=== PATIENT | female | born 1935 | race Caucasian/White ===

== ENCOUNTER 2016-10-05 11:57 | Outpatient (CLI) | payer MEDICARE, BC | END 2016-10-05 11:58 | disposition home or self-care (01) | DX: E11.40 Type 2 diabetes mellitus with diabetic neuropathy, unspecified (principal) ==

== ENCOUNTER 2016-11-26 09:50 | Outpatient (CLI) | payer MEDICARE, BC | END 2016-11-26 09:51 | disposition home or self-care (01) | DX: I48.91 Unspecified atrial fibrillation (principal); I51.9 Heart disease, unspecified; Z79.899 Other long term (current) drug therapy; I25.119 Atherosclerotic heart disease of native coronary artery with unspecified angina pectoris; Z79.01 Long term (current) use of anticoagulants ==

== ENCOUNTER 2016-11-26 09:50 | Outpatient (CLI) | payer MEDICARE, BC | END 2016-11-26 09:51 | disposition home or self-care (01) | DX: E03.9 Hypothyroidism, unspecified (principal); I48.91 Unspecified atrial fibrillation; I51.9 Heart disease, unspecified; Z79.899 Other long term (current) drug therapy; I25.119 Atherosclerotic heart disease of native coronary artery with unspecified angina pectoris; Z79.01 Long term (current) use of anticoagulants ==

== ENCOUNTER 2016-12-06 10:10 | Outpatient (CLI) | payer MEDICARE, BC | END 2016-12-06 10:11 | disposition home or self-care (01) | DX: I10 Essential (primary) hypertension (principal) ==

== ENCOUNTER 2017-02-13 12:42 | Outpatient (CLI) | payer MEDICARE, BC ==
--- NOTE | 2017-02-14 14:59 | Ultrasound Report ---
BILATERAL LOWER EXTREMITY ARTERIAL DUPLEX: 02/13/2017 CLINICAL HISTORY: Bilateral lower extremity claudication and atrial fibrillation. TECHNIQUE: Real-time sonographic vascular imaging was performed by the electrophysiology tech through the lower extremities utilizing both color-flow and Doppler spectral analysis. Multiple automotive sales representative static images were saved for review. RIGHT SIDE SITE PSV WAVEFORM STEN FRANK -- -- -- MAO -- -- -- ERNESTO -- -- -- ANGUS -- -- -- EIA -- -- -- MAMMOGRAPHY TECH 134 Tri -- PSFA 135 Tri -- MSFA 96 Tri -- DSFA 85 Bi -- PFA 91 Bi -- POP 55 Bi -- PAUL 36 Bi -- COMPUGRAPH OPERATOR 140 Tri -- PER 55 Bi -- DPA 68 Bi -- LEFT SIDE SITE PSV WAVEFORM STEN ANGUS -- -- -- EIA -- -- -- MAMMOGRAPHY TECH 134 Bi -- PSFA 77 Bi -- MSFA 120 Bi -- DSFA 103 Bi -- PFA 81 Bi -- POP 63 Bi -- PAUL 49 Bi -- COMPUGRAPH OPERATOR 63 Bi -- PER 94 Bi -- DPA 76 Bi -- FINDINGS: Doppler of the lower extremity arteries shows triphasic flow in all of the vessels bilaterally extending from the common femoral down into the arteries in the legs. This indicates no hemodynamically significant stenosis present in any of the lower extremity arteries. Visually, only minimal plaque is noted in the lower extremity arteries. IMPRESSION: NO SIGNIFICANT ABNORMALITY. MTDD
== END 2017-02-13 12:43 | disposition home or self-care (01) ==
LOC: DI 12:42
PROVIDERS: ATTEND Family Medicine
DX: I73.9 Peripheral vascular disease, unspecified (principal)
CPT/HCPCS: 93925

== ENCOUNTER 2017-02-19 16:47 | Outpatient (CLI) | payer MEDICARE, BC ==
[2017-02-19 13:31] LABS: BILIRUBIN,TOTAL 0.5 mg/dL (0.2-1.0); CALCIUM 9.2 mg/dL (8.5-10.3); CREATININE 1.3 mg/dL (0.4-1.0); POTASSIUM 4.3 mmol/L (3.5-5.0); TOTAL PROTEIN 7.3 g/dL (6.7-8.2)
== END 2017-02-19 16:48 | disposition home or self-care (01) ==
LOC: LAB.WCP 16:47
PROVIDERS: ATTEND Internal Medicine Cardiovascular Disease
DX: I48.0 Paroxysmal atrial fibrillation (principal); Z95.1 Presence of aortocoronary bypass graft; I10 Essential (primary) hypertension; I51.9 Heart disease, unspecified; E78.00 Pure hypercholesterolemia, unspecified; Z79.01 Long term (current) use of anticoagulants; Z79.899 Other long term (current) drug therapy
CPT/HCPCS: 36415; 80053; 84443

== ENCOUNTER 2017-03-07 08:10 | Outpatient (CLI) | payer MEDICARE, BC ==
--- NOTE | 2017-03-07 09:22 | Ultrasound Report ---
ULTRASOUND LEFT BREAST: 03/07/2017 CLINICAL INDICATION: History of mastectomy, palpable abnormality just below mastectomy scar. TECHNIQUE: Real-time scanning was performed with pharmaceutical sales representative static images obtained. FINDINGS: Ultrasound of the palpable abnormality identified by the patient was performed. Unremarka ble subcutaneous fat is seen. No discrete solid or cystic mass is identified. No sonographically muro spicious findings are present. IMPRESSION: NEGATIVE EXAMINATION. RECOMMENDATION: Continued clinical surveillance. BI-RADS category 1, negative. JOB #: [id number] EXT JOB #:[id number]
== END 2017-03-07 08:11 | disposition home or self-care (01) ==
LOC: DI 08:10
PROVIDERS: ATTEND Family Medicine
DX: N63 Unspecified lump in breast (principal)
CPT/HCPCS: 76642

== ENCOUNTER 2017-04-20 22:04 | Emergency (ER) | payer MEDICARE, BC ==
[2017-04-20 22:29] LABS: BASOPHILS % (AUTO) 0.5 %; EOSINOPHILS # (AUTO) 0.2 10^3/uL (0.0-0.7); EOSINOPHILS % (AUTO) 2.7 %; HCT - HEMATOCRIT 29.7 % (37.0-47.0); HGB - HEMOGLOBIN 10.2 g/dL (12.0-16.0); LYMPHOCYTES # (AUTO) 2.1 10^3/uL (1.5-3.5); LYMPHOCYTES % (AUTO) 24.5 %; MEAN CORPUSCULAR HEMOGLOBIN 32.8 pg (27.0-31.0); MEAN CORPUSCULAR HGB CONC 34.3 g/dL (32.0-36.0); MEAN CORPUSCULAR VOLUME 95.6 fL (81.0-99.0); MEAN PLATELET VOLUME 7.9 fL (7.9-10.8); MONOCYTES # (AUTO) 0.7 10^3/uL (0.0-1.0); NEUTROPHILS # (AUTO) 5.5 10^3/uL (1.5-6.6); NEUTROPHILS % (AUTO) 64.3 %; RED BLOOD COUNT 3.11 10^6/uL (4.20-5.40); RED CELL DISTRIBUTION WIDTH 14.8 % (12.0-15.0); UNCORRECTED WHITE BLOOD COUNT 8.5 x10^3/uL; WHITE BLOOD COUNT 8.5 x10^3/uL (4.8-10.8)
[2017-04-20 22:38] LABS: BILIRUBIN,TOTAL 0.3 mg/dL (0.2-1.0); CALCIUM 8.6 mg/dL (8.5-10.3); CREATININE 1.1 mg/dL (0.4-1.0); POTASSIUM 3.8 mmol/L (3.5-5.0); TOTAL PROTEIN 7.4 g/dL (6.7-8.2)
--- NOTE | 2017-04-20 23:01 | ED Physician Documentation ---
History of Present Illness - Stated complaint Stated Complaint: HBP - Chief complaint Chief Complaint: Cardiac - History obtained from History obtained from: Patient, Friend - History of Present Illness Timing: Today - Additonal information Additional information: Patient is an 82 year old female with a history of htn who is presenting to the emergency department for high blood pressure. patient states that she decided to check it on a whim and it was elevated to 190s systolic. Patient denied any physical complaints but thought she should get checked out. Review of Systems Constitutional: denies: Fever, Chills Eyes: denies: Photophobia, Irritation Ears: denies: Loss of hearing, Ear pain Nose: denies: Rhinorrhea / runny nose, Epistaxis Throat: denies: Dental pain / toothache, Sore throat Cardiac: denies: Chest pain / pressure, Palpitations, Calf pain Respiratory: denies: Cough, Wheezing GI: denies: Abdominal Pain, Nausea, Vomiting Musculoskeletal: denies: Neck pain, Back pain Neurologic: denies: Altered mental status, Headache Immunocompromised: denies: Immunocompromised PD PAST MEDICAL HISTORY - Past Medical History Cardiovascular: Hypertension, High cholesterol, Coronary artery disease Endocrine/Autoimmune: Type 2 diabetes, HyPOthyroidism - Past Surgical History Past Surgical History: Yes General: Cholecystectomy, Appendectomy 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, 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 - Present Medications Home Medications: Ambulatory Orders Medication Instructions Recorded Confirmed Aspirin [Children's Aspirin] 81 mg PO DAILY 05/01/13 04/20/17 Levothyroxine [Synthroid] 88 mcg PO DAILY 05/01/13 04/20/17 Cholecalciferol (Vitamin D3) 1,000 unit PO DAILY 08/31/14 04/20/17 [Vitamin D3] Flaxseed Oil 2 cap PO DAILY 08/31/14 04/20/17 Iron 1 tab PO DAILY 08/31/14 04/20/17 Losartan [Cozaar] 100 mg PO DAILY 08/31/14 04/20/17 Metoprolol Succinate [Toprol Xl] 150 mg PO DAILY 08/31/14 04/20/17 Omeprazole 20 mg PO DAILY 08/31/14 04/20/17 Ranolazine [Ranexa] 500 mg PO BID 08/31/14 04/20/17 Pen Needle, Diabetic [Insulin Pen 1 each MC DAILY 11/02/14 04/20/17 Needle] Magnesium Oxide 400 mg PO BID 07/26/15 04/20/17 Warfarin [Coumadin] 2.5 - 5 mg PO DAILY 07/26/15 04/20/17 Ibuprofen 400 tab PO RTQ6H PRN 10/18/15 04/20/17 Lidocaine HCl [Aspercreme] 1 applic TOP ONCE PRN 10/18/15 04/20/17 Amiodarone [Pacerone] 200 mg PO DAILY 07/17/16 04/20/17 Hydrochlorothiazide 1 tab PO DAILY 04/20/17 04/20/17 Insulin Detemir [Levemir Flextouch] 33 units SQ DAILY 04/20/17 04/20/17 hydrALAZINE [Apresoline] 1 tab PO PRN PRN 04/20/17 04/20/17 - Allergies Allergies/Adverse Reactions: Allergies Allergy/AdvReac Type Severity Reaction Status Date / Time codeine AdvReac Unknown Nausea Verified 04/20/17 22:10 morphine AdvReac Unknown Nausea Verified 04/20/17 22:10 Sulfa (Sulfonamide AdvReac Unknown Nausea Verified 04/20/17 22:10 Antibiotics) - Social History Does the pt smoke?: No Smoking Status: Never smoker Does the pt drink ETOH?: No Does the pt have substance abuse?: No - Immunizations Immunizations are current?: Yes - POLST Patient has POLST: No PD ED PE NORMAL - Vitals Vital signs reviewed: Yes - General General: Alert and oriented X 3, No acute distress, Well developed/nourished - HEENT HEENT: Atraumatic, PERRL - Neck Neck: Supple, no meningeal sign, No JVD - Cardiac Cardiac: RRR, No murmur - Respiratory Respiratory: No respiratory distress - Abdomen Abdomen: Soft, Non tender, Non distended - Derm Derm: Normal color, Warm and dry - Neuro Neuro: Alert and oriented X 3, No motor deficit, No sensory deficit, Normal speech - Psych Psych: Normal mood, Normal affect Results - Vitals Vitals: Vital Signs - 24 hr 04/20/17 04/20/17 22:08 22:57 Temperature 36.7 C Heart Rate 73 58 L Respiratory 17 18 Rate Blood Pressure 204/90 H 187/66 H O2 Saturation 98 98 Oxygen O2 Source Room air - Labs Labs: Laboratory Tests 04/20/17 04/20/17 04/20/17 22:20 22:20 22:20 WBC 8.5 RBC 3.11 L Hgb 10.2 L Hct 29.7 L MCV 95.6 MCH 32.8 H MCHC 34.3 RDW 14.8 Plt Count 203 MPV 7.9 Neut # 5.5 Lymph # 2.1 [place] # 0.7 Eos # 0.2 Baso # 0.0 Absolute Nucleated RBC 0.00 Nucleated RBCs 0.0 Sodium 134 L Potassium 3.8 Chloride 103 Carbon Dioxide 25 Anion Gap 6.0 BUN 17 Creatinine 1.1 H Estimated GFR (MDRD) 48 L Glucose 141 H Calcium 8.6 Total Bilirubin 0.3 AST 26 ALT 18 Alkaline Phosphatase 76 Troponin I < 0.04 B-Natriuretic Peptide Total Protein 7.4 Albumin 3.7 Globulin 3.7 Albumin/Globulin Ratio 1.0 Lipase 38 04/20/17 22:20 WBC RBC Hgb Hct MCV MCH MCHC RDW Plt Count MPV Neut # Lymph # [place] # Eos # Baso # Absolute Nucleated RBC Nucleated RBCs Sodium Potassium Chloride Carbon Dioxide Anion Gap BUN Creatinine Estimated GFR (MDRD) Glucose Calcium Total Bilirubin AST ALT Alkaline Phosphatase Troponin I B-Natriuretic Peptide 224 H Total Protein Albumin Globulin Albumin/Globulin Ratio Lipase PD MEDICAL DECISION MAKING - ED course Complexity details: reviewed old records, reviewed results, re-evaluated patient , considered differential, d/w patient ED course: Patient was seen and examined at bedside. Patient was well appearing and in no acute distress. patient was hypertensive and labs were drawn. patient's labs showed no signs of end organ damage. patient required no further work up at this time and was stable for discharge with outpatient follow up. Departure - Departure Disposition: Home, Self Care Clinical Impression: Hypertension Condition: Good Instructions: Blood Pressure Dc Follow-Up: Miki Gee DO [Primary Care Provider] - Within 3 Days Comments: Your diagnostics today were within normal limits. there were no acute abnormalities. Your blood pressure was slightly elevated and you should call your doctor on saturday to schedule a follow up appointment. You can return to the emergency department at any time for new, worsening or uncontrollable symptoms.
[2017-04-20 23:05] VITALS: BP 173/72
== END 2017-04-20 23:09 | disposition home or self-care (01) ==
LOC: ED 22:04
DX: I10 Essential (primary) hypertension (principal); E78.00 Pure hypercholesterolemia, unspecified; E11.9 Type 2 diabetes mellitus without complications; Z79.4 Long term (current) use of insulin; I25.10 Atherosclerotic heart disease of native coronary artery without angina pectoris; E03.9 Hypothyroidism, unspecified; Z79.82 Long term (current) use of aspirin; Z79.01 Long term (current) use of anticoagulants
CPT/HCPCS: 36415; 80053; 83690; 83880; 84484; 85025; 99283; 99284

== ENCOUNTER 2017-05-18 15:25 | Outpatient (CLI) | payer MEDICARE, BC | END 2017-05-18 15:26 | disposition critical access hospital (66) | LOC: EMS 15:25 | PROVIDERS: ATTEND Surgery | DX: M79.621 Pain in right upper arm (principal); W01.0XXA Fall on same level from slipping, tripping and stumbling without subsequent striking against object, initial encounter; Y93.01 Activity, walking, marching and hiking; Y92.481 Parking lot as the place of occurrence of the external cause | CPT/HCPCS: A0425; A0429 ==

== ENCOUNTER 2017-05-18 15:42 | Emergency (ER) | payer MEDICARE, BC ==
--- NOTE | 2017-05-18 16:44 | ED Physician Documentation ---
PD HPI UPPER EXT INJURY - Stated complaint Stated Complaint: R ARM PX - Chief complaint Chief Complaint: Ext Problem - History obtained from History obtained from: Patient, Family - History of Present Illness Location: Right, Arm Type of injury: Fall Where injury occurred: Street Timing - onset: Today Timing - duration: Hours Timing - details: Abrupt onset, Still present Improved by: Rest, Immobilization Worsened by: Moving, Palpating Associated symptoms: Swelling. No: Weakness, Numbness, Tingling Contributing factors: No: Anticoagulated Similar symptoms before: Has not had sx before Recently seen: Not recently seen - Additonal information Additional information: 82 y/o female with a history of CAD, HTN and type 2 diabetes tripped over a parking median in the parking lot of [facility] and landed on her right arm. She has pain in the middle of the arm with swelling. She did abraid her nasal bridge and break her glasses but she denies LOC or neck pain. She denies pain anywhere except for her arm. Review of Systems Constitutional: denies: Fever, Chills, Myalgias, Fatigue Eyes: denies: Decreased vision Ears: denies: Ear pain Nose: denies: Rhinorrhea / runny nose, Congestion Throat: denies: Sore throat Cardiac: denies: Chest pain / pressure, Palpitations Respiratory: denies: Dyspnea, Cough GI: denies: Abdominal Pain, Nausea, Vomiting : denies: Dysuria, Frequency Skin: reports: Abrasion (s). denies: Rash Musculoskeletal: reports: Extremity pain, Extremity swelling. 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 - Present Medications Home Medications: Ambulatory Orders Medication Instructions Recorded Confirmed Aspirin [Children's Aspirin] 81 mg PO DAILY 05/01/13 05/18/17 Levothyroxine [Synthroid] 88 mcg PO DAILY 05/01/13 05/18/17 Cholecalciferol (Vitamin D3) 1,000 unit PO DAILY 08/31/14 05/18/17 [Vitamin D3] Flaxseed Oil 2 cap PO DAILY 08/31/14 05/18/17 Iron 1 tab PO DAILY 08/31/14 05/18/17 Losartan [Cozaar] 100 mg PO DAILY 08/31/14 05/18/17 Metoprolol Succinate [Toprol Xl] 150 mg PO DAILY 08/31/14 05/18/17 Ranolazine [Ranexa] 500 mg PO BID 08/31/14 05/18/17 Pen Needle, Diabetic [Insulin Pen 1 each MC DAILY 11/02/14 05/18/17 Needle] Magnesium Oxide 400 mg PO BID 07/26/15 05/18/17 Warfarin [Coumadin] 2.5 - 5 mg PO DAILY 07/26/15 05/18/17 Amiodarone [Pacerone] 200 mg PO DAILY 07/17/16 05/18/17 Hydrochlorothiazide 1 tab PO DAILY 04/20/17 05/18/17 Insulin Detemir [Levemir Flextouch] 33 units SQ DAILY 04/20/17 05/18/17 Isosorbide Dinitrate [Isosorbide 120 mg DAILY 05/18/17 05/18/17 Dinitrate] Losartan [Cozaar] 100 mg DAILY 05/18/17 05/18/17 Ondansetron Odt [Zofran] 4 mg TL Q6H PRN #10 tablet 05/18/17 Tramadol HCl 50 mg PO Q6HR PRN #20 tablet 05/18/17 amLODIPine [Norvasc] 5 mg DAILY 05/18/17 05/18/17 - Allergies Allergies/Adverse Reactions: Allergies Allergy/AdvReac Type Severity Reaction Status Date / Time codeine AdvReac Unknown Nausea Verified 04/20/17 22:10 morphine AdvReac Unknown Nausea Verified 04/20/17 22:10 Sulfa (Sulfonamide AdvReac Unknown Nausea Verified 04/20/17 22:10 Antibiotics) all codeine derivatives Allergy Unknown Uncoded 05/18/17 15:59 cardiac med starts with "Z" Allergy Unknown Uncoded 05/18/17 15:59 - Social History Does the pt smoke?: No Smoking Status: Never smoker Does the pt drink ETOH?: No Does the pt have substance abuse?: No - Immunizations Immunizations are current?: Yes - POLST Patient has POLST: No PD ED PE NORMAL - Vitals Vital signs reviewed: Yes (hypertension ) - General General: No acute distress, Well developed/nourished - HEENT HEENT: PERRL, EOMI, Other (There is a superficial abrasion to the nasal bridge and a crack to the right lens) - Neck Neck: Supple, no meningeal sign, No bony TTP - Cardiac Cardiac: RRR, No murmur - Respiratory Respiratory: No respiratory distress, Clear bilaterally - Abdomen Abdomen: Soft, Non tender - Back Back: No CVA TTP, No spinal TTP - Derm Derm: Normal color, Warm and dry, No rash - Extremities Extremities: Other (There is fracture deformity to the right arm over the mid shaft of the humerus. There is no tenderness to the clavicle, elbow or wrist and there is full ROM to the elbow and wrist and distal n/v is intact. ) - Neuro Neuro: Alert and oriented X 3, No motor deficit, No sensory deficit, Normal speech - Psych Psych: Normal mood, Normal affect Results - Vitals Vitals: Vital Signs - 24 hr 05/18/17 05/18/17 15:42 17:09 Temperature 36.6 C Heart Rate 65 60 Respiratory 20 16 Rate Blood Pressure 188/61 H 176/89 H O2 Saturation 100 99 Oxygen O2 Source Room air - Rads (name of study) right humerus Radiology: Prelim report reviewed (Impression: Oblique, displaced, foreshortened proximal humeral shaft fracture.), EMP read indepedently, See rad report Procedures - Splint (location) r arm Splint applied by: Physician, Tech Type of splint: Fiberglass, Other (coaptation splint) Other: Patient tolerated well, No complications, Neurovascular intact, Good alignment, Sling provided PD MEDICAL DECISION MAKING - ED course Complexity details: reviewed old records, reviewed results, re-evaluated patient , considered differential, d/w patient, d/w family ED course: 82 y/o female with shaft fracture of the right humerus and nasal bridge abrasion. She is placed into a coaptation splint after consultation with Dr Harris Bowden. She is given dilaudid with zofran and is able to tolerate this without vomiting. Departure - Departure Disposition: 01 Home, Self Care Clinical Impression: Humerus shaft fracture Qualifiers: Encounter type: initial encounter Fracture type: closed Fracture morphology: oblique Fracture alignment: displaced Laterality: right Qualified Code(s): S42.331A - Displaced oblique fracture of shaft of humerus, right arm, initial encounter for closed fracture Condition: Stable Instructions: Humerus Fx Follow-Up: Miki Gee DO [Primary Care Provider] - Harris Daley MD [Provider Admit Priv/Credential] - Prescriptions: Tramadol HCl 50 mg PO Q6HR PRN #20 tablet PRN Reason: Pain Ondansetron Odt [Zofran] 4 mg TL Q6H PRN #10 tablet PRN Reason: Nausea / Vomiting
--- NOTE | 2017-05-18 16:57 | XRAY Preliminary Report ---
Exam: XR Humerus RT IMPRESSION: Oblique, displaced, foreshortened proximal humeral shaft fracture. [facility] SITE ID: [id number]
--- NOTE | 2017-05-18 17:00 | XRAY Report ---
EXAM: RIGHT HUMERUS RADIOGRAPHY EXAM DATE: 05/18/2017 04:27 PM. CLINICAL HISTORY: Fall mid shaft pain . COMPARISON: None. TECHNIQUE: Single view. FINDINGS: Bones: Oblique, displaced, foreshortened proximal humeral shaft fracture. Joints: Limited evaluation appears grossly unremarkable. Soft Tissues: Soft tissue swelling. IMPRESSION: Oblique, displaced, foreshortened proximal humeral shaft fracture. [facility] Referring Provider Line: [phone] SITE ID: [id number]
[2017-05-18] MEDS ORDERED: ONDANSETRON ODT 4 MG TABLET TL STA (17:06)
[2017-05-18] MEDS ORDERED: HYDROmorphone 1 MG/ML SYRINGE IM STA (17:06)
[2017-05-18] MEDS ORDERED: HYDROmorphone 1 MG/ML SYRINGE ONE (17:33)
[2017-05-18] MEDS ORDERED: ONDANSETRON ODT 4 MG TABLET ONE (17:34)
[2017-05-18 19:13] VITALS: BP 159/54
== END 2017-05-18 19:37 | disposition home or self-care (01) ==
LOC: EDUNIT# → ED 15:42
DX: S42.331A Displaced oblique fracture of shaft of humerus, right arm, initial encounter for closed fracture (principal); W01.0XXA Fall on same level from slipping, tripping and stumbling without subsequent striking against object, initial encounter; Y93.01 Activity, walking, marching and hiking; Y92.481 Parking lot as the place of occurrence of the external cause; I10 Essential (primary) hypertension; I25.10 Atherosclerotic heart disease of native coronary artery without angina pectoris; E11.9 Type 2 diabetes mellitus without complications; Z79.4 Long term (current) use of insulin; Z79.01 Long term (current) use of anticoagulants; E78.00 Pure hypercholesterolemia, unspecified; E03.9 Hypothyroidism, unspecified; Z79.82 Long term (current) use of aspirin
CPT/HCPCS: 29105; 73060; 96372; 99283; 99284; J1170; Q0162

== ENCOUNTER 2017-05-20 14:11 | Outpatient (CLI) | payer MEDICARE, BC ==
[2017-05-20 19:15] LABS: ALBUMIN/GLOBULIN RATIO 0.9 (1.0-2.2); BILIRUBIN,TOTAL 0.5 mg/dL (0.2-1.0); CALCIUM 8.8 mg/dL (8.5-10.3); CREATININE 1.4 mg/dL (0.4-1.0); POTASSIUM 4.3 mmol/L (3.5-5.0); TOTAL PROTEIN 7.1 g/dL (6.7-8.2)
== END 2017-05-20 14:12 | disposition home or self-care (01) ==
LOC: LAB.WCP 14:11
PROVIDERS: ATTEND Internal Medicine Cardiovascular Disease
DX: I48.91 Unspecified atrial fibrillation (principal); I25.119 Atherosclerotic heart disease of native coronary artery with unspecified angina pectoris; I10 Essential (primary) hypertension; Z95.1 Presence of aortocoronary bypass graft; Z79.899 Other long term (current) drug therapy
CPT/HCPCS: 36415; 80053; 84443

== ENCOUNTER 2017-05-20 16:40 | Outpatient (CLI) | payer MEDICARE, BC ==
--- NOTE | 2017-05-20 17:39 | XRAY Report ---
EXAM: LEFT WRIST RADIOGRAPHY EXAM DATE: 05/20/2017 04:44 PM. CLINICAL HISTORY: WRIST PAIN,LEFT. COMPARISON: None. TECHNIQUE: 3 views. FINDINGS: Bones: There is chronic degenerative disease along the radial side of the wrist and base of thumb. No acute fracture. Joints: There is moderate joint space narrowing at the first carpal metacarpal joint and at the scaph oid trapezium articulation. There is [id number] joint space narrowing and degenerative disease at the first metacarpal phalangeal joint. There is spurring and hypertrophy around the first carpal m etacarpal joint. Soft Tissues: There are vascular calcifications. There is chondrocalcinosis at the wrist distal to th e ulna. There is generalized diffuse soft tissue swelling. 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 No acute fracture. [facility] The call report notification system was initiated by Dr. Delgado Chi at 17:04 hrs on 7. The above findings were discussed with Jackson by Dr. Delgado Chi at 17:35 hrs on 05/20/17 . Referring Provider Line: [phone] SITE ID: [id number]
== END 2017-05-20 16:41 | disposition home or self-care (01) ==
LOC: DI 16:40
PROVIDERS: ATTEND Family Medicine
DX: M25.532 Pain in left wrist (principal); M19.031 Primary osteoarthritis, right wrist; M11.231 Other chondrocalcinosis, right wrist; I48.91 Unspecified atrial fibrillation; I25.119 Atherosclerotic heart disease of native coronary artery with unspecified angina pectoris; I10 Essential (primary) hypertension
CPT/HCPCS: 36415; 80053; 84443

== ENCOUNTER 2017-08-09 13:08 | Day surgery (SDC) | payer MEDICARE, BC ==
[2017-08-09 13:31] VITALS: BP 187/88
[2017-08-09] MEDS ORDERED: SODIUM CHLORIDE FLUSH 0.9% 10 ML SYRINGE IVP ONE (16:11)
--- NOTE | 2017-08-09 16:20 | XRAY Report ---
FRONTAL CHEST: 08/09/2017 CLINICAL INDICATION: PICC placement. FINDINGS: Frontal view of the chest is compared to previous films of 12/10/2016. The cardiac silhouette is enlarged. Changes of previous cardiac surgery are present. A left arm PICC terminates in the proximal right atrium, approximately 3 cm past the cavoatrial junction. The lungs d emonstrate dependent atelectasis. A right humeral fracture is incidentally noted. No effusion or pneu mothorax is appreciated. IMPRESSION: LEFT ARM PICC TERMINATING IN THE PROXIMAL RIGHT ATRIUM, APPROXIMATELY 3 CM PAST THE CAVO ATRIAL JUNCTION. JOB #: [id number] EXT JOB #:[id number]
== END 2017-08-09 13:09 | disposition home or self-care (01) ==
LOC: SDS 13:08
PROVIDERS: ATTEND Nurse Anesthetist, Certified Registered
PROC: 02H633Z Insertion of Infusion Device into Right Atrium, Percutaneous Approach (ICD-10-PCS; principal; 2017-08-09 14:00)
DX: L03.116 Cellulitis of left lower limb (principal); L03.115 Cellulitis of right lower limb; E11.42 Type 2 diabetes mellitus with diabetic polyneuropathy; Z79.4 Long term (current) use of insulin; I10 Essential (primary) hypertension; Z95.1 Presence of aortocoronary bypass graft; I25.10 Atherosclerotic heart disease of native coronary artery without angina pectoris
CPT/HCPCS: 71010

== ENCOUNTER 2017-09-24 11:16 | Outpatient (CLI) | payer MEDICARE, BC ==
[2017-09-24 19:26] LABS: BASOPHILS % (AUTO) 0.4 %; EOSINOPHILS # (AUTO) 0.3 10^3/uL (0.0-0.7); HGB - HEMOGLOBIN 9.7 g/dL (12.0-16.0); LYMPHOCYTES # (AUTO) 1.5 10^3/uL (1.5-3.5); LYMPHOCYTES % (AUTO) 25.4 %; MEAN CORPUSCULAR HEMOGLOBIN 30.6 pg (27.0-31.0); MEAN CORPUSCULAR HGB CONC 32.8 g/dL (32.0-36.0); MEAN CORPUSCULAR VOLUME 93.4 fL (81.0-99.0); MEAN PLATELET VOLUME 8.4 fL (7.9-10.8); MONOCYTES # (AUTO) 0.4 10^3/uL (0.0-1.0); MONOCYTES % (AUTO) 7.5 %; NEUTROPHILS # (AUTO) 3.6 10^3/uL (1.5-6.6); NEUTROPHILS % (AUTO) 61.7 %; PLT - PLATELET COUNT 247 10^3/uL (130-450); RED BLOOD COUNT 3.17 10^6/uL (4.20-5.40); RED CELL DISTRIBUTION WIDTH 16.3 % (12.0-15.0); WHITE BLOOD COUNT 5.8 x10^3/uL (4.8-10.8)
[2017-09-24 19:32] LABS: % IRON SATURATION 21 % (20-50); ALBUMIN 3.7 g/dL (3.2-5.5); ALKALINE PHOSPHATASE 123 IU/L (42-121); ALT ALANINE AMINOTRANSFERASE 15 IU/L (10-60); AST ASPARTATE AMINOTRANSFERASE 28 IU/L (10-42); BILIRUBIN,TOTAL 0.5 mg/dL (0.2-1.0); BUN - BLOOD UREA NITROGEN 23 mg/dL (6-20); CALCIUM 8.5 mg/dL (8.5-10.3); CARBON DIOXIDE - CO2 26 mmol/L (21-32); CHLORIDE 103 mmol/L (101-111); CHOL/HDL RATIO 4.4 (<4.4); CHOLESTEROL 176 mg/dL; CREATININE 1.2 mg/dL (0.4-1.0); GFR - MDRD 43 (>89); GLUCOSE 93 mg/dL (70-100); HDL CHOLESTEROL 40 mg/dL; IRON 65 ug/dL (28-170); LDL CHOLESTEROL,CALCULATED 79 mg/dL; SODIUM 137 mmol/L (135-145); TOTAL IRON BINDING CAPACITY 302 ug/dL (250-450); TOTAL PROTEIN 7.4 g/dL (6.7-8.2); TRANSFERRIN 216 mg/dL (192-382); VLDL CHOLESTEROL 57 mg/dL
[2017-09-24 19:58] LABS: HB2 TOTAL 9.8 g/dL; HEMOGLOBIN A1C 0.38 g/dL; HEMOGLOBIN A1C % 5.7 % (4.6-6.2)
== END 2017-09-24 11:17 | disposition home or self-care (01) ==
LOC: LAB.WCP 11:16
PROVIDERS: ATTEND Family Medicine
DX: E11.9 Type 2 diabetes mellitus without complications (principal); D64.9 Anemia, unspecified
CPT/HCPCS: 36415; 80053; 80061; 82728; 83036; 83540; 84466; 85025

== ENCOUNTER 2017-10-17 11:43 | Outpatient (CLI) | payer MEDICARE, BC ==
[2017-10-17 19:09] LABS: ALBUMIN 3.5 g/dL (3.2-5.5); BILIRUBIN,TOTAL 0.4 mg/dL (0.2-1.0); CALCIUM 8.5 mg/dL (8.5-10.3); CREATININE 1.3 mg/dL (0.4-1.0)
== END 2017-10-17 11:44 | disposition home or self-care (01) ==
LOC: LAB.WCP 11:43
PROVIDERS: ATTEND Internal Medicine Cardiovascular Disease
DX: Z01.812 Encounter for preprocedural laboratory examination (principal); I10 Essential (primary) hypertension; I48.91 Unspecified atrial fibrillation; I25.119 Atherosclerotic heart disease of native coronary artery with unspecified angina pectoris; E78.00 Pure hypercholesterolemia, unspecified; Z79.899 Other long term (current) drug therapy; I51.9 Heart disease, unspecified
CPT/HCPCS: 36415; 80053; 84443

== ENCOUNTER 2017-12-19 07:02 | Emergency (ER) | payer MEDICARE, BC ==
--- NOTE | 2017-12-19 07:07 | ED Physician Documentation ---
History of Present Illness - Stated complaint Stated Complaint: R LEG PX - Additonal information Additional information: 82 f DNR comfort care pmhx CAD HTN HLD DM aib on coumadin, chronic gabriel LE cellulitis, chronic renal insuff, chronic anemia 2/2 kidney dz, s/p R hip surgery in the past awoke this Am and noted her R hip and thigh to hurt no injury able to walk no fever no erythema no abd pain no back pain no chest pain no SOA no urinary sx has neuropathy but no new numbness or weakness states she take a statin (lipitor) which causes her mm pains but her PMD / cardio state she needs to stay on it Review of Systems Constitutional: denies: Fever Cardiac: denies: Chest pain / pressure Respiratory: denies: Dyspnea GI: denies: Abdominal Pain : denies: Incontinent Musculoskeletal: reports: Extremity pain, Joint pain. 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: 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, 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 Cardiovascular: CABG, Coronary stent - Present Medications Home Medications: Ambulatory Orders Medication Instructions Recorded Confirmed Amiodarone HCl [Pacerone] 100 mg PO DAILY 07/22/17 08/09/17 Aspirin 81 mg PO DAILY 07/22/17 08/09/17 Ferrous Gluconate 648 mg PO DAILY 07/22/17 08/09/17 Insulin Detemir [Levemir Flextouch] 33 units SUBQ DAILY 07/22/17 08/09/17 Isosorbide Mononitrate ER [Imdur] 120 mg PO DAILY 07/22/17 08/09/17 Levothyroxine Sodium 100 mcg PO QDAC 07/22/17 08/09/17 Losartan [Cozaar] 50 mg PO BID 07/22/17 08/09/17 Magnesium Oxide [Mag Ox] 400 mg PO QPM 07/22/17 08/09/17 Metoprolol Succinate [Toprol Xl] 25 mg PO DAILY 07/22/17 08/09/17 Nitroglycerin [Nitrostat] 0.4 mg PO Q5MIN PRN 07/22/17 08/09/17 Omeprazole 20 mg PO QDAC 07/22/17 08/09/17 Ranolazine [Ranexa] 500 mg PO BID 07/22/17 08/09/17 Torsemide 10 mg PO DAILY 07/22/17 08/09/17 Triamcinolone 0.1% Cream [Kenalog 1 applic TOP BID 07/22/17 08/09/17 0.1% Cream] Warfarin [Coumadin] 2 mg PO DAILY MDD Mo, Tu, Th, Sa, 07/22/17 08/09/17 Alexandre hydrALAZINE [Apresoline] 20 mg PO BID 07/22/17 08/09/17 Atorvastatin [Lipitor] 20 mg PO DAILY 08/09/17 08/09/17 Warfarin Sodium [Coumadin] 4 mg PO DAILY MDD We, Fr 08/09/17 08/09/17 Lidocaine Patch 5% [Lidoderm Patch] 1 each TOP DAILY PRN #10 patch 12/19/17 - Allergies Allergies/Adverse Reactions: Allergies Allergy/AdvReac Type Severity Reaction Status Date / Time codeine AdvReac Unknown Nausea Verified 08/09/17 17:43 morphine AdvReac Unknown Nausea Verified 08/09/17 17:43 Sulfa (Sulfonamide AdvReac Unknown Nausea Verified 08/09/17 17:43 Antibiotics) all codeine derivatives Allergy Unknown Uncoded 08/09/17 17:43 cardiac med starts with "Z" Allergy Unknown Uncoded 08/09/17 17:43 - Social History Does the pt smoke?: No Smoking Status: Never smoker Does the pt drink ETOH?: No Does the pt have substance abuse?: No - Immunizations Immunizations are current?: Yes - POLST Patient has POLST: No POLST Status: DNR PD ED PE NORMAL - Vitals Vital signs reviewed: Yes - HEENT HEENT: Atraumatic - Neck Neck: Supple, no meningeal sign - Cardiac Cardiac: RRR - Respiratory Respiratory: No respiratory distress, Clear bilaterally - Abdomen Abdomen: Soft, Non tender, Other (no pulsatile mass, no RLQ TTP, no hernia appreciated) - Derm Derm: Normal color, Other (no redness warmth bruising) - Extremities Extremities: Other (hip and thigh non tender, no erythema, no swelling, no deformity, not short or raoatted, able to flex hip bend knee s sig pain, + pedal pulse and cap refill, neg SLR, patellar DTR 1+/4, no clonus, hip flex knee ext foot dorsi plantar and great toes ext all 5/5, sensation baseline per pt (has neuropathy)) Results - Vitals Vitals: Vital Signs - 24 hr 12/19/17 12/19/17 12/19/17 07:11 07:14 09:23 Temperature 36.7 C 36.7 C 36.6 C Heart Rate 84 80 Respiratory 16 17 Rate Blood Pressure 147/82 H 146/82 H O2 Saturation 94 100 Oxygen O2 Source Room air - Labs Labs: Laboratory Tests 12/19/17 12/19/17 12/19/17 08:14 08:14 08:59 PT 24.1 H INR 2.2 H POC Whole Bld Glucose 116 H Total Creatine Kinase 46 - Rads (name of study) R hip Radiology: See rad report (s/p total R hip - no acute abn) R femur Radiology: See rad report (demineralize, no acute abn) PD MEDICAL DECISION MAKING - ED course ED course: exam does not indicate infection, AAA, HNP, appy xray = no fx or dislocation or dislocation INR therapeutic so doubt DVT -and not swollen CK nl so doubt statin myopathy if better with lido patch and apap will dc to [facility] with her ortho spoke with pt and family and answered all questions Departure - Departure Disposition: 01 Home, Self Care Clinical Impression: Pain in extremity Qualifiers: Extremity pain location: lower extremity Laterality: right Qualified Code(s): M79.604 - Pain in right leg Condition: Good Follow-Up: Miki Gee DO [Primary Care Provider] - [facility] [Provider Group] Prescriptions: Lidocaine Patch 5% [Lidoderm Patch] 1 each TOP DAILY PRN #10 patch PRN Reason: Pain Comments: I am not sure why your leg is hurting. The history exam, labs and xrays do not suggest an infection, an aneurysm, an abdominal or spine process causing referred pain, a blood clot, a muscle injury from your statin, or any injury to the bone or orthopedic hardware Try the lidocaine patches I prescribed and tylenol Follow up with your acute care clinical nurse specialist if not better by Saturday Return to the ER if worse or new symptoms develop
[2017-12-19] MEDS ORDERED: LIDOCAINE PATCH 5% TOP STA (07:38)
[2017-12-19] MEDS ORDERED: ACETAMINOPHEN 325 MG TABLET PO STA (07:38)
[2017-12-19 08:29] LABS: INR 2.2 (0.8-1.2); PT - PROTHROMBIN TIME 24.1 secs (9.9-12.6)
--- NOTE | 2017-12-19 08:30 | XRAY Preliminary Report ---
Exam: XR HIP W/PELVIS 2-3V RT IMPRESSION: Expected appearance of right hip arthroplasty. No acute osseous abnormality. [facility] SITE ID: [id number]
--- NOTE | 2017-12-19 08:30 | XRAY Report ---
EXAM: RIGHT HIP AND PELVIS RADIOGRAPHY EXAM DATE: 12/19/2017 08:07 AM. HISTORY: Atraumatic right hip pain. No known injury or trauma. COMPARISONS: Pelvis and right hip radiographs 05/01/2013. Right femur radiographs 12/19/2017. TECHNIQUE: 1 view of the pelvis and 1 view of the right hip. FINDINGS: Bones and Joints: Bones are diffusely demineralized. No fracture or bone lesion. A right hip arthropl asty is present. There is a cemented femoral stem and a noncemented acetabular component. No unexpect ed periprosthetic lucency or other evidence of loosening. The contralateral hip joint space is unrema rkable. There are mild degenerative changes of the sacroiliac joints. There are degenerative changes of the partially visualized lower lumbar spine. Soft Tissues: No soft tissue swelling. There is dystrophic calcification adjacent to the right hip delia int, unchanged. There are extensive vascular calcifications. IMPRESSION: Expected appearance of right hip arthroplasty. No acute osseous abnormality. [facility] Referring Provider Line: [phone] SITE ID: [id number]
--- NOTE | 2017-12-19 08:32 | XRAY Report ---
EXAM: RIGHT FEMUR RADIOGRAPHY EXAM DATE: 12/19/2017 08:07 AM. CLINICAL HISTORY: Atraumatic right hip pain. COMPARISON: Pelvis and right hip radiographs 12/19/2017, 05/01/2013. TECHNIQUE: 2 views. FINDINGS: Bones: Diffusely demineralized. A right hip arthroplasty is present, as described on right hip radiog raphs performed today. No periprosthetic lucency.. No fracture or bone lesion. Joints: A right hip arthroplasty is present, as described on pelvis and hip radiographs. There is mil d narrowing of the patellofemoral joint space at the knee. No dislocation. Soft Tissues: No focal soft tissue swelling. Extensive vascular calcifications are present. IMPRESSION: Bones are diffusely demineralized. A right hip arthroplasty is present. No fracture or ot her acute osseous abnormality identified. [facility] Referring Provider Line: [phone] SITE ID: [id number]
[2017-12-19 09:24] VITALS: BP 146/82
== END 2017-12-19 09:40 | disposition home or self-care (01) ==
LOC: ED 07:02
DX: M79.604 Pain in right leg (principal); I12.9 Hypertensive chronic kidney disease with stage 1 through stage 4 chronic kidney disease, or unspecified chronic kidney disease; E11.22 Type 2 diabetes mellitus with diabetic chronic kidney disease; N18.9 Chronic kidney disease, unspecified; E11.40 Type 2 diabetes mellitus with diabetic neuropathy, unspecified; I25.10 Atherosclerotic heart disease of native coronary artery without angina pectoris; E78.5 Hyperlipidemia, unspecified; E03.9 Hypothyroidism, unspecified; Z79.82 Long term (current) use of aspirin; Z79.01 Long term (current) use of anticoagulants; Z95.1 Presence of aortocoronary bypass graft; Z95.5 Presence of coronary angioplasty implant and graft; Z96.649 Presence of unspecified artificial hip joint; Z79.4 Long term (current) use of insulin
CPT/HCPCS: 36415; 73502; 73552; 82550; 85610; 99283; A9270

== ENCOUNTER 2018-02-04 12:51 | Outpatient (CLI) | payer MEDICARE, BC ==
--- NOTE | 2018-02-05 15:50 | DEXA Report ---
DEXA SCAN: 02/04/2018 CLINICAL INDICATION: Postmenopausal. TECHNIQUE: Dual energy x-ray absorptiometry (DXA) was performed on a [employer] system. Regions measured are the AP spine, femoral neck, and, if needed, forearm. COMPARISON: None. In accordance with the International Society for Clinical Densitometry (ISCD) guidelines, data from previous exams may be reanalyzed using current recommendations and techniques. This is done to allow a more accurate basis for comparison with the current study. FINDINGS: The data for the lumbar spine is as follows: REGION BMD (g/cm/cm) T-SCORE Z-SCORE L1 0.796 -2.8 -1.3 L2 1.082 -1.0 0.5 L3 1.064 -1.1 0.3 L4 1.134 -0.5 0.9 TOTAL 1.020 -1.3 0.2 NOTE: All evaluable vertebrae are used for classification. The data for the hip is as follows: REGION BMD (g/cm/cm) T-SCORE Z-SCORE Neck 0.654 -2.8 -0.7 TOTAL 0.659 -2.8 -0.9 NOTE: The femoral neck or total proximal femur, whichever is lowest, is used for classification. IMPRESSION: THE WHO CLASSIFICATION BASED ON THE INTERNATIONAL REFERENCE STANDARD IS OSTEOPOROSIS. THE FRACTURE RISK IS HIGH. RECOMMENDATION: Patients with diagnosis of osteoporosis or osteopenia should have regular bone mineral density assessment. For those eligible for Medicare, routine testing is allowed once every 2 years. Testing frequency can be increased for patients who have rapidly progressing disease or for those who are receiving medical therapy to restore bone mass. COMMENT: World Health Organization (WHO) definitions for osteoporosis and osteopenia: NORMAL BMD: T-score at 1.0 or higher, fracture risk is low. OSTEOPENIA BMD: T-score between 1.0 and -2.5, fracture risk is increased. OSTEOPOROSIS BMD: T-score at 2.5 or lower, fracture risk high. National Osteoporosis Foundation recommends: 1. Obtain adequate dietary calcium (at least 1200 mg per day) and vitamin D (400 -800 international units per day). 2. Participate, as appropriate, in regular weightbearing and muscle- strengthening exercise. 3. Avoid tobacco use and reduce alcohol and caffeine intake. 4. For more detailed information see the website at www.NOF.org. MTDD
== END 2018-02-04 12:52 | disposition home or self-care (01) ==
LOC: DI 12:51
PROVIDERS: ATTEND Family Medicine
DX: M89.9 Disorder of bone, unspecified (principal); M81.0 Age-related osteoporosis without current pathological fracture; Z78.0 Asymptomatic menopausal state
CPT/HCPCS: 77080

== ENCOUNTER 2018-10-08 09:12 | Outpatient (CLI) | payer MEDICARE, BC | END 2018-10-08 09:13 | disposition home or self-care (01) | LOC: RT 09:12 | PROVIDERS: ATTEND Family Medicine | DX: R06.02 Shortness of breath (principal) | CPT/HCPCS: 94010 ==

== ENCOUNTER 2018-10-09 12:56 | Outpatient (CLI) | payer MEDICARE, BC ==
--- NOTE | 2018-10-09 16:05 | CT Report ---
Reason: SHORTNESS OF BREATH Procedure Date: 10/09/2018 Accession Number: [id number] / [id number] Procedure: CT - Chest W/O CPT Code: FULL RESULT: EXAM: CT CHEST EXAM DATE: 10/09/2018 12:57 PM. CLINICAL HISTORY: SHORTNESS OF BREATH. COMPARISONS: 11 1717 chest x-ray. TECHNIQUE: Routine helical CT imaging was performed through the chest. IV contrast: None. Reconstructions: Coronal and sagittal. In accordance with CT protocol optimization, one or more of the following dose reduction techniques were utilized for this exam: automated exposure control, adjustment of mA and/or KV based on patient size, or use of iterative reconstructive technique. FINDINGS: Lungs/Pleura: Volume loss left hemithorax. Subpleural interstitial fibrotic change left greater than right predominantly at the bases. Question prior radiation therapy effect. No suspicious nodules, bronchial thickening, consolidation, or edema. Pulmonary vasculature is normal. No pericardial or pleural effusion. No pneumothorax. Mediastinum: Status post sternotomy and CABG. No pathologic adenopathy or masses. Multiple subcentimeter mediastinal and pericardial lymph nodes are present. The heart is enlarged. The aorta is normal in caliber Bones: Unremarkable. Included upper Abdomen: Extensive vascular calcification Other: Surgical clips left breast and axilla. Moderately large hiatal hernia. IMPRESSION: 1. Volume loss left hemithorax with left greater than right basilar subpleural interstitial fibrotic change. Question sequela of prior left breast radiation therapy. 2. Postsurgical changes left breast. 3. Moderately large hiatal hernia. 4. Status post CABG with cardiomegaly. 5. No pathologically enlarged lymph nodes. Multiple small mediastinal and pericardial lymph nodes are present. 6. No pulmonary nodules or masses. [facility]
== END 2018-10-09 12:57 | disposition home or self-care (01) ==
LOC: DI 12:56
PROVIDERS: ATTEND Family Medicine
DX: R06.02 Shortness of breath (principal); K44.9 Diaphragmatic hernia without obstruction or gangrene
CPT/HCPCS: 71250

== ENCOUNTER 2018-11-25 08:00 | Outpatient (CLI) | payer MEDICARE, BC | END 2018-11-25 23:59 | disposition home or self-care (01) | LOC: LAB.WCP 08:00 | PROVIDERS: ATTEND Family Medicine | DX: I48.91 Unspecified atrial fibrillation (principal); Z79.01 Long term (current) use of anticoagulants ==

== ENCOUNTER 2018-12-23 08:00 | Outpatient (CLI) | payer MEDICARE, BC | END 2018-12-23 23:59 | disposition home or self-care (01) | LOC: LAB.WCP 08:00 | PROVIDERS: ATTEND Family Medicine | DX: I48.91 Unspecified atrial fibrillation (principal); Z79.01 Long term (current) use of anticoagulants | CPT/HCPCS: 81025 ==

== ENCOUNTER 2019-01-13 10:04 | Outpatient (CLI) | payer MEDICARE, BC ==
[2019-01-13 13:11] LABS: BASOPHILS % (AUTO) 0.5 %; EOSINOPHILS # (AUTO) 0.3 10^3/uL (0.0-0.7); EOSINOPHILS % (AUTO) 4.6 %; HGB - HEMOGLOBIN 10.9 g/dL (12.0-16.0); LYMPHOCYTES # (AUTO) 1.6 10^3/uL (1.5-3.5); LYMPHOCYTES % (AUTO) 23.2 %; MEAN CORPUSCULAR HEMOGLOBIN 33.3 pg (27.0-31.0); MEAN CORPUSCULAR HGB CONC 34.7 g/dL (32.0-36.0); MEAN CORPUSCULAR VOLUME 96.2 fL (81.0-99.0); MEAN PLATELET VOLUME 8.6 fL (7.9-10.8); MONOCYTES # (AUTO) 0.5 10^3/uL (0.0-1.0); MONOCYTES % (AUTO) 7.3 %; NEUTROPHILS # (AUTO) 4.6 10^3/uL (1.5-6.6); NEUTROPHILS % (AUTO) 64.4 %; PLT - PLATELET COUNT 215 10^3/uL (130-450); RED BLOOD COUNT 3.27 10^6/uL (4.20-5.40); RED CELL DISTRIBUTION WIDTH 14.8 % (12.0-15.0); WHITE BLOOD COUNT 7.1 x10^3/uL (4.8-10.8)
[2019-01-13 13:19] LABS: ALBUMIN 3.7 g/dL (3.2-5.5); ALBUMIN/GLOBULIN RATIO 0.9 (1.0-2.2); ALKALINE PHOSPHATASE 74 IU/L (42-121); ALT ALANINE AMINOTRANSFERASE 13 IU/L (10-60); AST ASPARTATE AMINOTRANSFERASE 21 IU/L (10-42); BILIRUBIN,TOTAL 0.6 mg/dL (0.2-1.0); BUN - BLOOD UREA NITROGEN 35 mg/dL (6-20); CALCIUM 8.8 mg/dL (8.5-10.3); CARBON DIOXIDE - CO2 26 mmol/L (21-32); CHLORIDE 102 mmol/L (101-111); CHOLESTEROL 181 mg/dL; CREATININE 1.5 mg/dL (0.4-1.0); GFR - MDRD 33 (>89); GLUCOSE 131 mg/dL (70-100); HDL CHOLESTEROL 36 mg/dL; LDL CHOLESTEROL,CALCULATED 81 mg/dL; LDL/HDL RATIO 2.3 (<4.4); SODIUM 135 mmol/L (135-145); TOTAL PROTEIN 7.6 g/dL (6.7-8.2); VLDL CHOLESTEROL 64 mg/dL
[2019-01-13 13:28] LABS: HB2 TOTAL 11.3 g/dL; HEMOGLOBIN A1C 0.5 g/dL; HEMOGLOBIN A1C % 6.2 % (4.6-6.2)
== END 2019-01-13 10:05 | disposition home or self-care (01) ==
LOC: LAB.WCP 10:04
PROVIDERS: ATTEND Family Medicine
DX: E11.9 Type 2 diabetes mellitus without complications (principal)
CPT/HCPCS: 36415; 80053; 80061; 83036; 83721; 84443; 85025

== ENCOUNTER 2019-03-02 15:31 | Outpatient (CLI) | payer MEDICARE, BC ==
--- NOTE | 2019-03-02 16:28 | XRAY Report ---
Reason: CARDIOMY,ISCHEMIC Procedure Date: 03/02/2019 Accession Number: [id number] / [id number] Procedure: WCP - Chest 2 View X-Ray CPT Code: 84233 FULL RESULT: EXAM: CHEST RADIOGRAPHY EXAM DATE: 03/02/2019 03:43 PM. CLINICAL HISTORY: History of ischemic cardiomyopathy. COMPARISON: CHEST 1 VIEW 08/09/2017 2:36 PM. TECHNIQUE: 2 views. FINDINGS: Lungs/Pleura: No change in chronic left lower lobe scarring and volume loss. The lungs are otherwise clear. No pleural effusions. Mediastinum: Heart and mediastinal contours are unremarkable. Other: Mild cardiac enlargement with previous CABG. No evidence of pulmonary edema. IMPRESSION: 1. No acute cardiopulmonary abnormality. 2. No evidence of congestive heart failure. 3. Little change in chronic left lower lobe scarring with volume loss. [facility]
== END 2019-03-02 15:32 | disposition home or self-care (01) ==
LOC: DI.WCP 15:31
PROVIDERS: ATTEND Family Medicine
DX: I25.5 Ischemic cardiomyopathy (principal)
CPT/HCPCS: 71046

== ENCOUNTER 2019-03-03 13:26 | Outpatient (CLI) | payer MEDICARE, BC ==
[2019-03-03 19:01] LABS: HGB - HEMOGLOBIN 10.3 g/dL (12.0-16.0); MEAN CORPUSCULAR HEMOGLOBIN 33.3 pg (27.0-31.0); MEAN CORPUSCULAR VOLUME 97.9 fL (81.0-99.0); MEAN PLATELET VOLUME 8.6 fL (7.9-10.8); RED BLOOD COUNT 3.1 10^6/uL (4.20-5.40); RED CELL DISTRIBUTION WIDTH 14.5 % (12.0-15.0); WHITE BLOOD COUNT 6.9 x10^3/uL (4.8-10.8)
[2019-03-03 19:25] LABS: CALCIUM 9.1 mg/dL (8.5-10.3); CREATININE 1.5 mg/dL (0.4-1.0)
== END 2019-03-03 13:27 | disposition home or self-care (01) ==
LOC: LAB.WCP 13:26
PROVIDERS: ATTEND Family Medicine
DX: I25.5 Ischemic cardiomyopathy (principal); M79.10 Myalgia, unspecified site; E03.9 Hypothyroidism, unspecified
CPT/HCPCS: 36415; 80048; 82550; 83880; 84443; 85027

== ENCOUNTER 2019-03-05 13:39 | Outpatient (CLI) | payer MEDICARE, BC ==
--- NOTE | 2019-03-05 15:16 | Ultrasound Report ---
Reason: BREAST LUMP OR MASS,HX OF MASTECTOMY,BILATERAL Procedure Date: 03/05/2019 Accession Number: [id number] / [id number] Procedure: US - Breast Unilateral Limited CPT Code: FULL RESULT: EXAM: Breast Unilateral Limited DATE: 03/05/2019 2:23 PM CLINICAL HISTORY: Palpable left chest wall lump. History of bilateral mastectomy. TECHNIQUE: Targeted left breast ultrasound was performed over the left anterior and lateral chest wall where there is a palpable abnormality. COMPARISON: None FINDINGS: There is no sonographic abnormality in the area of clinical concern. On both sonography and on clinical examination, the palpable finding is the rib and chest wall. These findings were discussed with the patient. IMPRESSION: Negative examination. BI-RADS CATEGORY 1: NORMAL. RECOMMENDATIONS: Clinical evaluation.
== END 2019-03-05 13:40 | disposition home or self-care (01) ==
LOC: DI 13:39
PROVIDERS: ATTEND Family Medicine
DX: N63.20 Unspecified lump in the left breast, unspecified quadrant (principal); Z90.13 Acquired absence of bilateral breasts and nipples
CPT/HCPCS: 76642

== ENCOUNTER 2019-03-24 08:00 | Outpatient (CLI) | payer MEDICARE, BC | END 2019-03-24 23:59 | LOC: LAB.WCP 08:00 | PROVIDERS: ATTEND Family Medicine | DX: I48.91 Unspecified atrial fibrillation (principal); Z79.01 Long term (current) use of anticoagulants ==

== ENCOUNTER 2019-04-13 12:05 | Emergency (ER) | payer MEDICARE, BC ==
--- NOTE | 2019-04-13 13:18 | ED Physician Documentation ---
History of Present Illness - Stated complaint Stated Complaint: RT LEG PX - Chief complaint Chief Complaint: Ext Problem - History obtained from History obtained from: Patient - Additonal information Additional information: Patient is an 84-year-old female with complicated past medical history presenting with about 1 week of lower back strain and right leg pain. Patient reports pain that radiates through the buttock down to right leg. Patient reports myalgias at baseline from her statins which are relatively unchanged from her usual. She denies any particular skin changes or leg swelling, as well as any risk factors for DVT including recent immobility. Patient reports that she takes anticoagulation, but is unable to provide name of this medication. Patient also denies any urinary or stool incontinence, abdominal pain, dysuria, hematuria, new paresthesias or decreased strength to right leg. Patient does have baseline neuropathy. No other improving or worsening factors noted. Review of Systems GI: denies: Abdominal Pain, Nausea, Vomiting, Diarrhea : denies: Dysuria Skin: denies: Rash Musculoskeletal: reports: Back pain, Extremity pain. 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, Breast cancer : Retention, Incontinence HEENT: Chronic hearing loss Psych: Depression Musculoskeletal: Osteoarthritis Derm: None - Past Surgical History Past Surgical History: Yes General: Cholecystectomy, Appendectomy Ortho: Hip replacement /SUPERVISOR ORDER TAKERS: 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, Mastectomy Cardiovascular: CABG, Coronary stent - Present Medications Home Medications: Ambulatory Orders Medication Instructions Recorded Confirmed Amiodarone HCl [Pacerone] 100 mg PO DAILY 07/22/17 08/09/17 Aspirin 81 mg PO DAILY 07/22/17 08/09/17 Ferrous Gluconate 648 mg PO DAILY 07/22/17 08/09/17 Insulin Detemir [Levemir Flextouch] 33 units SUBQ DAILY 07/22/17 08/09/17 Isosorbide Mononitrate ER [Imdur] 120 mg PO DAILY 07/22/17 08/09/17 Levothyroxine Sodium 100 mcg PO QDAC 07/22/17 08/09/17 Losartan [Cozaar] 50 mg PO BID 07/22/17 08/09/17 Magnesium Oxide [Mag Ox] 400 mg PO QPM 07/22/17 08/09/17 Metoprolol Succinate [Toprol Xl] 25 mg PO DAILY 07/22/17 08/09/17 Nitroglycerin [Nitrostat] 0.4 mg PO Q5MIN PRN 07/22/17 08/09/17 Omeprazole 20 mg PO QDAC 07/22/17 08/09/17 Ranolazine [Ranexa] 500 mg PO BID 07/22/17 08/09/17 Torsemide 10 mg PO DAILY 07/22/17 08/09/17 Triamcinolone 0.1% Cream [Kenalog 1 applic TOP BID 07/22/17 08/09/17 0.1% Cream] Warfarin [Coumadin] 2 mg PO DAILY MDD Mo, Tu, Th, Sa, 07/22/17 08/09/17 Alexandre hydrALAZINE [Apresoline] 20 mg PO BID 07/22/17 08/09/17 Atorvastatin [Lipitor] 20 mg PO DAILY 08/09/17 08/09/17 Warfarin Sodium [Coumadin] 4 mg PO DAILY MDD We, Fr 08/09/17 08/09/17 Lidocaine Patch 5% [Lidoderm Patch] 1 each TOP DAILY PRN #10 patch 12/19/17 - Allergies Allergies/Adverse Reactions: Allergies Allergy/AdvReac Type Severity Reaction Status Date / Time amlodipine Allergy Unknown Verified 04/13/19 12:38 atorvastatin Allergy Unknown Verified 04/13/19 12:38 sitagliptin [From Januvia] Allergy Unknown Verified 04/13/19 12:40 albuterol AdvReac Unknown TREMMORS Verified 04/13/19 12:37 codeine AdvReac Unknown Nausea Verified 08/09/17 17:43 morphine AdvReac Unknown Nausea Verified 08/09/17 17:43 Sulfa (Sulfonamide AdvReac Unknown Nausea Verified 08/09/17 17:43 Antibiotics) ezetimibe [From Zetia] AdvReac Unknown Verified 04/13/19 12:41 rosuvastatin [From Crestor] AdvReac Unknown Verified 04/13/19 12:41 all codeine derivatives Allergy Unknown Uncoded 08/09/17 17:43 cardiac med starts with "Z" Allergy Unknown Uncoded 08/09/17 17:43 - Social History Does the pt smoke?: No Smoking Status: Never smoker Does the pt drink ETOH?: No Does the pt have substance abuse?: No - Immunizations Immunizations are current?: Yes - POLST Patient has POLST: No POLST Status: DNR PD ED PE NORMAL - Vitals Vital signs reviewed: Yes - General General: Alert and oriented X 3, No acute distress, Well developed/nourished - HEENT HEENT: Atraumatic, Moist mucous membranes - Neck Neck: No bony TTP - Cardiac Cardiac: RRR, No murmur - Respiratory Respiratory: No respiratory distress, Clear bilaterally - Abdomen Abdomen: Normal bowel sounds, Soft, Non tender, Non distended - Back Back: No spinal TTP - Derm Derm: Normal color, Warm and dry, No rash - Extremities Extremities: No deformity, No tenderness to palpate, No edema, No calf tenderness / cord - Neuro Neuro: Alert and oriented X 3, No motor deficit, No sensory deficit - Psych Psych: Normal mood, Normal affect Results - Vitals Vitals: Vital Signs - 24 hr 04/13/19 12:32 Temperature 36.5 C Heart Rate 83 Respiratory 18 Rate Blood Pressure 137/84 H O2 Saturation 97 Oxygen O2 Source Room air PD MEDICAL DECISION MAKING - ED course Complexity details: considered differential, d/w patient, d/w family ED course: Patient presenting with symptoms indicating right-sided sciatica and low back strain. Do not have high suspicion for bony abnormalities including dislocation or fracture. Do not find evidence of cellulitis, abscess, lymphangitis, joint infection, or gallop. Do not feel patient is at high risk for DVT at this time, particularly if she is on anticoagulation. Offered supportive cares and other alternatives including steroids, which patient declined and chooses to instead continue [id number] medications and supportive cares until she follows up with her primary care physician tomorrow. Departure - Departure Disposition: 01 Home, Self Care Clinical Impression: Right sided sciatica Condition: Good Instructions: ED Sciatica Follow-Up: Miki Gee DO [Primary Care Provider] - Tomorrow Comments: Recommend ibuprofen/Tylenol as needed, as well as stretching, massage, and heat. Please follow-up with your primary care physician as scheduled tomorrow. Return to ED sooner if experience worsening symptoms or have other concerns.
[2019-04-13 13:40] VITALS: BP 157/86
== END 2019-04-13 13:42 | disposition home or self-care (01) ==
LOC: ED 12:05
DX: M54.31 Sciatica, right side (principal); S39.012A Strain of muscle, fascia and tendon of lower back, initial encounter; X58.XXXA Exposure to other specified factors, initial encounter; E11.40 Type 2 diabetes mellitus with diabetic neuropathy, unspecified; Z79.4 Long term (current) use of insulin; I10 Essential (primary) hypertension; I25.10 Atherosclerotic heart disease of native coronary artery without angina pectoris; Z95.1 Presence of aortocoronary bypass graft; Z79.01 Long term (current) use of anticoagulants
CPT/HCPCS: 99282; 99284

== ENCOUNTER 2019-04-14 11:30 | Outpatient (CLI) | payer MEDICARE, BC | END 2019-04-14 23:59 | disposition home or self-care (01) | LOC: LAB.WCP 11:30 | PROVIDERS: ATTEND Family Medicine | DX: R30.0 Dysuria (principal) | CPT/HCPCS: 87086; 87181 ==

== ENCOUNTER 2019-04-28 08:00 | Outpatient (CLI) | payer MEDICARE, BC | END 2019-04-28 23:59 | disposition home or self-care (01) | LOC: LAB.WCP 08:00 | PROVIDERS: ATTEND Physician Assistant | DX: I48.91 Unspecified atrial fibrillation (principal); Z79.01 Long term (current) use of anticoagulants ==

== ENCOUNTER 2019-05-12 08:00 | Outpatient (CLI) | payer MEDICARE, BC | END 2019-05-12 23:59 | disposition home or self-care (01) | LOC: LAB.WCP 08:00 | PROVIDERS: ATTEND Family Medicine | DX: I48.91 Unspecified atrial fibrillation (principal); Z79.01 Long term (current) use of anticoagulants ==

== ENCOUNTER 2019-06-04 08:00 | Outpatient (CLI) | payer MEDICARE, BC | END 2019-06-04 23:59 | disposition home or self-care (01) | LOC: LAB.WCP 08:00 | PROVIDERS: ATTEND Family Medicine | DX: Z79.01 Long term (current) use of anticoagulants (principal) ==

== ENCOUNTER 2019-06-16 11:22 | Outpatient (CLI) | payer MEDICARE, BC ==
[2019-06-16 19:05] LABS: CREATININE 1.7 mg/dL (0.4-1.0)
[2019-06-16 19:34] LABS: HB2 TOTAL 8.5 g/dL; HEMOGLOBIN A1C 0.35 g/dL; HEMOGLOBIN A1C % 5.9 % (4.6-6.2)
== END 2019-06-16 23:59 | disposition home or self-care (01) ==
LOC: LAB.WCP 11:22
PROVIDERS: ATTEND Family Medicine
DX: I25.5 Ischemic cardiomyopathy (principal)
CPT/HCPCS: 36415; 80048; 83036

== ENCOUNTER 2019-06-18 08:00 | Outpatient (CLI) | payer MEDICARE, BC ==
[2019-06-18 19:08] LABS: CALCIUM 8.5 mg/dL (8.5-10.3); CREATININE 1.9 mg/dL (0.4-1.0); MAGNESIUM 1.9 mg/dL (1.7-2.8)
== END 2019-06-18 23:59 | disposition home or self-care (01) ==
LOC: LAB.WCP 08:00
PROVIDERS: ATTEND Internal Medicine Cardiovascular Disease
DX: I50.33 Acute on chronic diastolic (congestive) heart failure (principal)
CPT/HCPCS: 36415; 80048; 83735

== ENCOUNTER 2019-07-21 08:00 | Outpatient (CLI) | payer MEDICARE, BC | END 2019-07-21 23:59 | disposition home or self-care (01) | LOC: LAB.WCP 08:00 | PROVIDERS: ATTEND Family Medicine | DX: Z79.01 Long term (current) use of anticoagulants (principal); I48.91 Unspecified atrial fibrillation ==

== ENCOUNTER 2019-08-04 08:00 | Outpatient (CLI) | payer MEDICARE, BC | END 2019-08-04 23:59 | disposition home or self-care (01) | LOC: LAB.WCP 08:00 | PROVIDERS: ATTEND Family Medicine | DX: Z79.01 Long term (current) use of anticoagulants (principal); I48.91 Unspecified atrial fibrillation ==

== ENCOUNTER 2019-08-18 08:00 | Outpatient (CLI) | payer MEDICARE, BC | END 2019-08-18 23:59 | disposition home or self-care (01) | LOC: LAB.WCP 08:00 | PROVIDERS: ATTEND Family Medicine | DX: Z79.01 Long term (current) use of anticoagulants (principal); I48.91 Unspecified atrial fibrillation ==

== ENCOUNTER 2019-10-08 09:37 | Outpatient (CLI) | payer MEDICARE, BC ==
[2019-10-08 12:32] LABS: HB2 TOTAL 9.8 g/dL; HEMOGLOBIN A1C 0.48 g/dL; HEMOGLOBIN A1C % 6.6 % (4.6-6.2)
[2019-10-08 12:36] LABS: CALCIUM 8.6 mg/dL (8.5-10.3); CREATININE 1.7 mg/dL (0.4-1.0)
[2019-10-08 12:56] LABS: BASOPHILS % (AUTO) 0.4 %; EOSINOPHILS # (AUTO) 0.3 10^3/uL (0.0-0.7); EOSINOPHILS % (AUTO) 4.8 %; HGB - HEMOGLOBIN 9.6 g/dL (12.0-16.0); LYMPHOCYTES # (AUTO) 1.4 10^3/uL (1.5-3.5); LYMPHOCYTES % (AUTO) 26.4 %; MEAN CORPUSCULAR VOLUME 93.9 fL (81.0-99.0); MEAN PLATELET VOLUME 10.2 fL (7.9-10.8); MONOCYTES # (AUTO) 0.6 10^3/uL (0.0-1.0); MONOCYTES % (AUTO) 11.2 %; NEUTROPHILS # (AUTO) 3.1 10^3/uL (1.5-6.6); NEUTROPHILS % (AUTO) 56.6 %; PLT - PLATELET COUNT 233 10^3/uL (130-450); RED CELL DISTRIBUTION WIDTH 14.4 % (12.0-15.0); WHITE BLOOD COUNT 5.4 x10^3/uL (4.8-10.8)
== END 2019-10-08 23:59 | disposition home or self-care (01) ==
LOC: LAB.WCP 09:37
PROVIDERS: ATTEND Family Medicine
DX: E11.40 Type 2 diabetes mellitus with diabetic neuropathy, unspecified (principal)
CPT/HCPCS: 36415; 80048; 83036; 84443; 85025

== ENCOUNTER 2019-10-20 14:03 | Outpatient (CLI) | payer MEDICARE, BC ==
--- NOTE | 2019-10-21 12:50 | XRAY Report ---
Reason: DYSPNEA Procedure Date: 10/20/2019 Accession Number: [id number] / [id number] Procedure: WCP - Chest 2 View X-Ray CPT Code: 51569 Final Report FULL RESULT: EXAM: CHEST RADIOGRAPHY EXAM DATE: 10/20/2019 02:23 PM. CLINICAL HISTORY: DYSPNEA. COMPARISON: CHEST 2 VIEW 03/02/2019 3:30 PM CHEST W/O 10/09/2018 12:57 PM. TECHNIQUE: 2 views. Lungs: Coarse left basilar opacity again seen without significant change. No vascular congestion. No pneumothorax. No pleural effusions. Mediastinum: Heart is enlarged. Aorta is tortuous. Hiatal hernia again seen. Aortic atherosclerosis. Other: Degenerative changes of the thoracic spine. Changes again seen from median sternotomy. IMPRESSION: 1. Cardiomegaly. 2. Coarse left basilar opacity without significant change. 3. No new focal abnormality. 4. Hiatal hernia. [facility]
== END 2019-10-20 23:59 | disposition home or self-care (01) ==
LOC: DI.WCP 14:03
PROVIDERS: ATTEND Family Medicine
DX: R91.8 Other nonspecific abnormal finding of lung field (principal); I51.7 Cardiomegaly; K44.9 Diaphragmatic hernia without obstruction or gangrene; I25.5 Ischemic cardiomyopathy
CPT/HCPCS: 36415; 71046; 83880

== ENCOUNTER 2019-10-20 15:00 | Outpatient (CLI) | payer MEDICARE, BC | END 2019-10-20 23:59 | disposition home or self-care (01) | LOC: LAB.WCP 15:00 | PROVIDERS: ATTEND Family Medicine | DX: I25.5 Ischemic cardiomyopathy (principal) | CPT/HCPCS: 36415; 83880 ==

== ENCOUNTER 2019-11-03 10:58 | Outpatient (CLI) | payer MEDICARE, BC ==
--- NOTE | 2019-11-03 13:30 | CT Report ---
Reason: WEAKNESS, ELDERLY FALL, ANTICOAG THERAPY Procedure Date: 11/03/2019 Accession Number: [id number] / [id number] Procedure: CT - HEAD WO CPT Code: Final Report FULL RESULT: EXAM: CT HEAD EXAM DATE: 11/03/2019 11:25 AM. CLINICAL HISTORY: Weakness, elderly fall, anticoagulation therapy. COMPARISON: HEAD W/O 07/22/2017 10:40 AM. TECHNIQUE: Multiaxial CT images were obtained from the foramen magnum to the vertex. Reformats: Sagittal and coronal. IV contrast: None. In accordance with CT protocol optimization, one or more of the following dose reduction techniques were utilized for this exam: automated exposure control, adjustment of mA and/or KV based on patient size, or use of iterative reconstructive technique. FINDINGS: No acute intracranial hemorrhage or midline shift. No mass effect. Moderate and symmetric cortical atrophic changes, similar to comparison. Mural calcification of the basal vertebral arteries. The calvarium appears intact. Imaged portion of the facial sinuses and mastoid air cells appear clear. IMPRESSION: No acute intracranial hemorrhage or calvarial fracture identified. [facility]
== END 2019-11-03 10:59 | disposition home or self-care (01) ==
LOC: DI 10:58
PROVIDERS: ATTEND Family Medicine
DX: R53.1 Weakness (principal); R29.6 Repeated falls; Z79.01 Long term (current) use of anticoagulants
CPT/HCPCS: 36415; 70450; 80053; 82550; 83930; 83935; 84300; 85025

== ENCOUNTER 2019-11-03 11:31 | Outpatient (CLI) | payer MEDICARE, BC ==
[2019-11-03 12:04] LABS: BASOPHILS % (AUTO) 0.5 %; EOSINOPHILS # (AUTO) 0.3 10^3/uL (0.0-0.7); EOSINOPHILS % (AUTO) 3.3 %; HGB - HEMOGLOBIN 9.4 g/dL (12.0-16.0); LYMPHOCYTES # (AUTO) 1.5 10^3/uL (1.5-3.5); LYMPHOCYTES % (AUTO) 19.6 %; MEAN CORPUSCULAR HEMOGLOBIN 32.9 pg (27.0-31.0); MEAN CORPUSCULAR HGB CONC 34.2 g/dL (32.0-36.0); MEAN CORPUSCULAR VOLUME 96.2 fL (81.0-99.0); MEAN PLATELET VOLUME 9.5 fL (7.9-10.8); MONOCYTES # (AUTO) 0.7 10^3/uL (0.0-1.0); MONOCYTES % (AUTO) 9.4 %; NEUTROPHILS # (AUTO) 5.1 10^3/uL (1.5-6.6); NEUTROPHILS % (AUTO) 66.5 %; PLT - PLATELET COUNT 226 10^3/uL (130-450); RED BLOOD COUNT 2.86 10^6/uL (4.20-5.40); RED CELL DISTRIBUTION WIDTH 13.8 % (12.0-15.0); WHITE BLOOD COUNT 7.6 x10^3/uL (4.8-10.8)
[2019-11-03 12:18] LABS: ALBUMIN 3.8 g/dL (3.2-5.5); BILIRUBIN,TOTAL 0.7 mg/dL (0.2-1.0); CALCIUM 8.9 mg/dL (8.5-10.3); CREATININE 1.9 mg/dL (0.4-1.0); TOTAL PROTEIN 7.5 g/dL (6.7-8.2)
== END 2019-11-03 11:32 | disposition home or self-care (01) ==
LOC: LAB 11:31
PROVIDERS: ATTEND Family Medicine
DX: R53.1 Weakness (principal)
CPT/HCPCS: 36415; 80053; 82550; 83930; 83935; 84300; 85025

== ENCOUNTER 2020-01-14 14:49 | Outpatient (CLI) | payer MEDICARE, BC ==
[2020-01-14 17:49] LABS: HGB - HEMOGLOBIN 8.7 g/dL (12.0-16.0); MEAN CORPUSCULAR HEMOGLOBIN 33.2 pg (27.0-31.0); MEAN CORPUSCULAR HGB CONC 34.3 g/dL (32.0-36.0); MEAN CORPUSCULAR VOLUME 96.9 fL (81.0-99.0); RED BLOOD COUNT 2.62 10^6/uL (4.20-5.40); RED CELL DISTRIBUTION WIDTH 13.5 % (12.0-15.0); WHITE BLOOD COUNT 7.1 x10^3/uL (4.8-10.8)
[2020-01-14 18:03] LABS: BILIRUBIN,URINE NEGATIVE (NEGATIVE); GLUCOSE, URINE (UA) NEGATIVE (NEGATIVE); KETONES,URINE (UA) NEGATIVE (NEGATIVE); LEUKOCYTE ESTERASE, URINE NEGATIVE (NEGATIVE); NITRITE,URINE NEGATIVE (NEGATIVE); OCCULT BLOOD,URINE NEGATIVE (NEGATIVE); PH,URINE 6.5 PH (5.0-7.5); PROTEIN,URINE NEGATIVE (NEGATIVE); UROBILINOGEN,URINE 0.2 (NORMAL) E.U./dL (NORMAL)
[2020-01-14 18:04] LABS: CREATININE 1.8 mg/dL (0.4-1.0)
[2020-01-14 18:07] LABS: CLARITY,URINE CLEAR (CLEAR)
[2020-01-14 18:26] LABS: HB2 TOTAL 8.6 g/dL; HEMOGLOBIN A1C 0.36 g/dL
[2020-01-15 08:24] LABS: % IRON SATURATION 22 % (20-50); IRON 77 ug/dL (28-170); TOTAL IRON BINDING CAPACITY 344 ug/dL (250-450); TRANSFERRIN 246 mg/dL (192-382)
[2020-01-15 08:25] LABS: FERRITIN 47.6 ng/mL (11.0-306.8)
--- NOTE | 2020-01-15 09:53 | XRAY Report ---
Reason: WEAKNESS Procedure Date: 01/14/2020 Accession Number: [id number] / [id number] Procedure: WCP - Chest 2 View X-Ray CPT Code: 13165 Final Report FULL RESULT: EXAM: CHEST RADIOGRAPHY EXAM DATE: 01/14/2020 02:49 PM. CLINICAL HISTORY: Weakness. COMPARISON: CHEST 2 VIEW 10/20/2019 2:23 PM. TECHNIQUE: 2 views. FINDINGS: Lungs/Pleura: No significant change in prominent interstitial markings versus infiltrate at the left lower lobe. No pleural fluid collections. Lungs elsewhere appear clear. Mediastinum: Previous cardiac surgery and median sternotomy. Heart size borderline enlarged. Large hiatal hernia. Other: Surgical clips left axilla. Vascular calcifications in the upper abdomen. IMPRESSION: Stable appearance of the chest, including coarsened interstitial markings versus infiltrate in the left lower lobe. [facility]
== END 2020-01-14 23:59 | disposition home or self-care (01) ==
LOC: DI.WCP 14:49
PROVIDERS: ATTEND Family Medicine
DX: R91.8 Other nonspecific abnormal finding of lung field (principal); R53.1 Weakness; I25.5 Ischemic cardiomyopathy; E11.9 Type 2 diabetes mellitus without complications; R06.00 Dyspnea, unspecified; D64.9 Anemia, unspecified
CPT/HCPCS: 36415; 71046; 80048; 81001; 81003; 82550; 82607; 82728; 83036; 83540; 83880; 84466; 85027; 87086

== ENCOUNTER 2020-02-04 07:50 | Outpatient (CLI) | payer MEDICARE, BC | END 2020-02-04 07:51 | disposition home or self-care (01) | LOC: DI 07:50 | PROVIDERS: ATTEND Family Medicine | DX: I25.5 Ischemic cardiomyopathy (principal); I51.7 Cardiomegaly; I27.20 Pulmonary hypertension, unspecified; I34.0 Nonrheumatic mitral (valve) insufficiency; I48.91 Unspecified atrial fibrillation | CPT/HCPCS: 93306 ==

== ENCOUNTER 2020-04-07 08:30 | Outpatient (CLI) | payer MEDICARE, BC | END 2020-04-07 08:31 | disposition short-term general hospital (02) | LOC: EMS 08:30 | PROVIDERS: ATTEND Surgery | DX: S09.90XA Unspecified injury of head, initial encounter (principal); W01.190A Fall on same level from slipping, tripping and stumbling with subsequent striking against furniture, initial encounter; Y92.092 Bedroom in other non-institutional residence as the place of occurrence of the external cause; Z79.01 Long term (current) use of anticoagulants | CPT/HCPCS: A0425; A0429 ==

== ENCOUNTER 2020-04-07 08:48 | Emergency (ER) | payer MEDICARE, BC ==
--- NOTE | 2020-04-07 09:01 | ED Physician Documentation ---
History of Present Illness - Stated complaint Stated Complaint: GLF/HEAD INJURY - History obtained from History obtained from: Patient, EMS - Additonal information Additional information: Patient is brought to the emergency department by EMS after falling and hitting her head on a dresser at home. The patient states she had gotten up and was walking with her walker when she reached forward to try to get something. She states she accidentally tipped her walker over and ended up falling to the floor. She states she did not lose consciousness, despite hitting her head on the edge of the dresser. Patient is on Coumadin for atrial fibrillation, and is noticed a lump on the posterior right scalp. Patient states she was not injured in any other way. She did not fall on top of her walker. No hip or rib pain. No spinal pain. Patient has been able to move all 4 extremities without difficulty or pain. She is a diabetic, and states that she did not eat much last night, but did have a small candy bar and a bowl of sherbet. She took her insulin as usual, and medics noted her blood sugar to be 68 this morning. The patient was given a dose of dextrose in route for this. Patient denies any other complaints at this time. Review of Systems Ten Systems: 10 systems reviewed and negative Constitutional: reports: Reviewed and negative Eyes: reports: Reviewed and negative Ears: reports: Reviewed and negative Nose: reports: Reviewed and negative Throat: reports: Reviewed and negative Cardiac: reports: Reviewed and negative Respiratory: reports: Reviewed and negative GI: reports: Reviewed and negative : reports: Reviewed and negative Skin: reports: Reviewed and negative Musculoskeletal: reports: Reviewed and negative Neurologic: reports: Reviewed and negative Psychiatric: reports: Reviewed and negative Endocrine: reports: Reviewed and negative Immunocompromised: reports: Reviewed and negative PD PAST MEDICAL HISTORY - Past Medical History Cardiovascular: Hypertension, High cholesterol, Coronary artery disease Respiratory: None Neuro: None Endocrine/Autoimmune: Type 2 diabetes, HyPOthyroidism GI: GERD 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, Breast cancer : Retention, Incontinence HEENT: Chronic hearing loss Psych: Depression Musculoskeletal: Osteoarthritis Derm: None - Past Surgical History Past Surgical History: Yes General: Cholecystectomy, Appendectomy Ortho: Hip replacement /AUTOMATIC DIE CUTTING MACHINE OPERATOR: 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, Mastectomy Cardiovascular: CABG, Coronary stent - Present Medications Home Medications: Ambulatory Orders Medication Instructions Recorded Confirmed Amiodarone HCl [Pacerone] 100 mg PO DAILY 07/22/17 08/09/17 Aspirin 81 mg PO DAILY 07/22/17 08/09/17 Ferrous Gluconate 648 mg PO DAILY 07/22/17 08/09/17 Insulin Detemir [Levemir Flextouch] 33 units SUBQ DAILY 07/22/17 08/09/17 Isosorbide Mononitrate ER [Imdur] 120 mg PO DAILY 07/22/17 08/09/17 Levothyroxine Sodium 100 mcg PO QDAC 07/22/17 08/09/17 Losartan [Cozaar] 50 mg PO BID 07/22/17 08/09/17 Magnesium Oxide [Mag Ox] 400 mg PO QPM 07/22/17 08/09/17 Metoprolol Succinate [Toprol Xl] 25 mg PO DAILY 07/22/17 08/09/17 Nitroglycerin [Nitrostat] 0.4 mg PO Q5MIN PRN 07/22/17 08/09/17 Omeprazole 20 mg PO QDAC 07/22/17 08/09/17 Ranolazine [Ranexa] 500 mg PO BID 07/22/17 08/09/17 Torsemide 10 mg PO DAILY 07/22/17 08/09/17 Triamcinolone 0.1% Cream [Kenalog 1 applic TOP BID 07/22/17 08/09/17 0.1% Cream] Warfarin [Coumadin] 2 mg PO DAILY MDD Mo, Tu, Th, Sa, 07/22/17 08/09/17 Alexandre hydrALAZINE [Apresoline] 20 mg PO BID 07/22/17 08/09/17 Atorvastatin [Lipitor] 20 mg PO DAILY 08/09/17 08/09/17 Warfarin Sodium [Coumadin] 4 mg PO DAILY MDD We, Fr 08/09/17 08/09/17 Lidocaine Patch 5% [Lidoderm Patch] 1 each TOP DAILY PRN #10 patch 12/19/17 - Allergies Allergies/Adverse Reactions: Allergies Allergy/AdvReac Type Severity Reaction Status Date / Time amlodipine Allergy Unknown Verified 04/07/20 09:10 atorvastatin Allergy Unknown Verified 04/07/20 09:10 sitagliptin [From Januvia] Allergy Unknown Verified 04/07/20 09:10 albuterol AdvReac Unknown TREMMORS Verified 04/07/20 09:10 codeine AdvReac Unknown Nausea Verified 04/07/20 09:10 morphine AdvReac Unknown Nausea Verified 04/07/20 09:10 Sulfa (Sulfonamide AdvReac Unknown Nausea Verified 04/07/20 09:10 Antibiotics) ezetimibe [From Zetia] AdvReac Unknown Verified 04/07/20 09:10 rosuvastatin [From Crestor] AdvReac Unknown Verified 04/07/20 09:10 all codeine derivatives Allergy Unknown Uncoded 08/09/17 17:43 cardiac med starts with "Z" Allergy Unknown Uncoded 08/09/17 17:43 - Social History Does the pt smoke?: No Smoking Status: Never smoker Does the pt drink ETOH?: No Does the pt have substance abuse?: No - Immunizations Immunizations are current?: Yes - POLST Patient has POLST: No POLST Status: DNR PD ED PE NORMAL - Vitals Vital signs reviewed: Yes - General General: Alert and oriented X 3, No acute distress, Well developed/nourished, Other (Patient is bright, alert, and conversant.) - HEENT HEENT: PERRL, EOMI, Moist mucous membranes, Other (Patient has an approximately 4 cm diameter raised area on her right parietal scalp superiorly. No skin breakage.No bony deformity.) - Neck Neck: Supple, no meningeal sign, No bony TTP - Cardiac Cardiac: RRR, No murmur, Strong equal pulses - Respiratory Respiratory: No respiratory distress, Clear bilaterally - Abdomen Abdomen: Soft, Non tender, Non distended - Derm Derm: Warm and dry - Extremities Extremities: No deformity, No tenderness to palpate, Normal ROM s pain, No edema, Other (No tenderness palpation of the patient's ribs or spine.) - Neuro Neuro: Alert and oriented X 3, roll former 2-12 intact, No motor deficit, No sensory deficit, Normal speech, Other (GCS 15) Eye Opening: Spontaneous Motor: Obeys Commands Verbal: Oriented GCS Score: 15 - Psych Psych: Normal mood, Normal affect Results - Vitals Vitals: Vital Signs - 24 hr 04/07/20 04/07/20 08:49 10:37 Temperature 36.6 C 36.8 C Heart Rate 72 76 Respiratory 16 12 Rate Blood Pressure 157/87 H 132/84 H O2 Saturation 100 99 Oxygen O2 Source Room air - Labs Labs: Laboratory Tests 04/07/20 08:57 PT 49.0 H INR 4.7 H* - Rads (name of study) CT head Radiology: Final report received, EMP read indepedently, See rad report (No trauma, no intracranial hemorrhage, per radiologist impression.) CT c-spine Radiology: Final report received, EMP read indepedently, See rad report (Final radiologist impression: Chronic degenerative disc disease but no fracture or subluxation or evidence of cervical hematoma.) PD MEDICAL DECISION MAKING - ED course Complexity details: reviewed results, re-evaluated patient, considered differential, d/w patient ED course: The patient was worked up with CTs of the C-spine and head, as well as a PT/INR. CT scans were unremarkable for acute findings. INR was found to be 4.7 which was supratherapeutic. The patient was reevaluated and found to be doing well. Her stepdaughter was with her. I discussed with them that it would be prudent to have the patient hold her evening dose of Coumadin today, and then restart tomorrow. She should have her INR rechecked within the next several days. Dr. Gee is her primary care physician and can arrange this. I have advised the patient and her stepdaughter to call as soon as possible to set up this appointment. Patient and family expressed understanding. We have discussed the usual indications for return. Departure - Departure Disposition: 01 Home, Self Care Clinical Impression: Fall from ground level, Supratherapeutic INR Closed head injury Qualifiers: Encounter type: initial encounter Qualified Code(s): S09.90XA - Unspecified injury of head, initial encounter Condition: Stable Instructions: ED Head Injury Closed Comments: The CT scans of your head and neck do not show any acute injury. There is no bleeding in your brain, and no fracture of your skull or anywhere in your neck. Your INR is 4.7 today which is a bit high. As such, it is recommended that you skip your next dose of warfarin. You may take the following dose, but should schedule an appointment with your primary care physician to be seen either tomorrow or Saturday, to have the level rechecked. If you experience any bruising or bleeding that is beyond the normal for you, you should have the INR rechecked sooner. You may use ice to help with the pain and swelling where you hit your head. There is no evidence of any other injury. Discharge Date/Time: 04/07/20 10:40
[2020-04-07 09:18] LABS: INR 4.7 (0.8-1.2)
--- NOTE | 2020-04-07 09:41 | CT Report ---
PROCEDURE: HEAD WO INDICATIONS: fall/head injury/anticoagulation TECHNIQUE: Noncontrast 4.5 mm thick angled axial sections acquired from the foramen magnum to the vertex. For r adiation dose reduction, the following was used: automated exposure control, adjustment of mA and/or kV according to patient size. COMPARISON: None. FINDINGS: Image quality: Excellent. CSF spaces: Basal cisterns are patent. No extra-axial fluid collections. Ventricles are normal in size and shape. Brain: No midline shift. No intracranial masses or hemorrhage. [place]-white matter interface is norm al. Skull and face: Calvarium and visualized facial bones are intact, without suspicious lesions. Sinuses: Visualized sinuses and mastoids are clear. IMPRESSION: No trauma found, no intracranial hemorrhage present. Reviewed by: Delgado Noel MD on 04/07/2020 9:39 AM PDT Approved by: Delgado Noel MD on 04/07/2020 9:39 AM PDT Station ID: [id number]
--- NOTE | 2020-04-07 09:42 | CT Report ---
PROCEDURE: CERVICAL SPINE WO INDICATIONS: fall/head injury TECHNIQUE: Noncontrast 3 mm thick sections acquired from the skull base to the T4 level. Sagittal and coronal r eformats were then constructed. For radiation dose reduction, the following was used: automated exp osure control, adjustment of mA and/or kV according to patient size. COMPARISON: 07/22/[address] FINDINGS: Image quality: Excellent. Bones: No fractures or dislocations. Visualized superior ribs are intact. Soft tissues: Prevertebral soft tissues are normal in thickness. No paravertebral hematomas. No ap ical pneumothoraces. IMPRESSION: Chronic degenerative disc disease but no fracture or subluxation or evidence of cervical hematoma. Reviewed by: Delgado Noel MD on 04/07/2020 9:41 AM PDT Approved by: Delgado Noel MD on 04/07/2020 9:41 AM PDT Station ID: [id number]
[2020-04-07 10:38] VITALS: BP 132/84
== END 2020-04-07 10:40 | disposition home or self-care (01) ==
LOC: EDUNIT# → ED 08:48
DX: S09.90XA Unspecified injury of head, initial encounter (principal); S00.03XA Contusion of scalp, initial encounter; W01.190A Fall on same level from slipping, tripping and stumbling with subsequent striking against furniture, initial encounter; Y93.01 Activity, walking, marching and hiking; Y92.003 Bedroom of unspecified non-institutional (private) residence as the place of occurrence of the external cause; E11.649 Type 2 diabetes mellitus with hypoglycemia without coma; Z79.4 Long term (current) use of insulin; R79.1 Abnormal coagulation profile; Z79.01 Long term (current) use of anticoagulants; I48.91 Unspecified atrial fibrillation; I10 Essential (primary) hypertension; Z79.82 Long term (current) use of aspirin; M50.30 Other cervical disc degeneration, unspecified cervical region; Z66 Do not resuscitate
CPT/HCPCS: 36415; 70450; 72125; 85610; 99283; 99284

== ENCOUNTER 2020-05-05 11:02 | Outpatient (CLI) | payer MEDICARE, BC ==
--- NOTE | 2020-05-05 16:30 | XRAY Report ---
PROCEDURE: Chest 2 View X-Ray INDICATIONS: SHORTNESS OF BREATH TECHNIQUE: 2 view(s) of the chest. COMPARISON: None. FINDINGS: Surgical changes and devices: Status post CABG procedure Lungs and pleura: No pleural effusions or pneumothorax. Lungs are clear. Mediastinum: Mediastinal contours are normal. Heart size is normal. Retrocardiac hiatal hernia is r edemonstrated Bones and chest wall: No suspicious bony abnormalities. Soft tissues appear unremarkable. IMPRESSION: No acute cardiopulmonary disease process. Reviewed by: Cecilia Calderon MD, PhD on 05/05/2020 4:29 PM PDT Approved by: Cecilia Calderon MD, PhD on 05/05/2020 4:29 PM PDT Station ID: [id number]
== END 2020-05-05 11:03 | disposition home or self-care (01) ==
LOC: DI.N 11:02
PROVIDERS: ATTEND Internal Medicine Cardiovascular Disease
DX: R06.02 Shortness of breath (principal)
CPT/HCPCS: 71046

== ENCOUNTER 2020-05-05 14:00 | Outpatient (CLI) | payer MEDICARE, BC ==
[2020-05-05 18:30] LABS: ABSOLUTE RETICS # AUTO 0.112 10^6/uL (0.020-0.110); BASOPHILS % (AUTO) 0.4 %; EOSINOPHILS # (AUTO) 0.1 10^3/uL (0.0-0.7); EOSINOPHILS % (AUTO) 1.7 %; LYMPHOCYTES # (AUTO) 1.4 10^3/uL (1.5-3.5); LYMPHOCYTES % (AUTO) 19.4 %; MEAN CORPUSCULAR HEMOGLOBIN 32.3 pg (27.0-31.0); MEAN CORPUSCULAR HGB CONC 31.4 g/dL (32.0-36.0); MEAN CORPUSCULAR VOLUME 102.6 fL (81.0-99.0); MEAN PLATELET VOLUME 9.4 fL (7.9-10.8); MONOCYTES # (AUTO) 0.6 10^3/uL (0.0-1.0); MONOCYTES % (AUTO) 9.1 %; NEUTROPHILS # (AUTO) 4.8 10^3/uL (1.5-6.6); NEUTROPHILS % (AUTO) 68.8 %; PLT - PLATELET COUNT 262 10^3/uL (130-450); RED BLOOD COUNT 1.89 10^6/uL (4.20-5.40); RED CELL DISTRIBUTION WIDTH 15.8 % (12.0-15.0)
[2020-05-05 18:51] LABS: ALBUMIN 3.5 g/dL (3.2-5.5); BILIRUBIN,TOTAL 0.8 mg/dL (0.2-1.0); CALCIUM 8.6 mg/dL (8.5-10.3); CREATININE 2.5 mg/dL (0.4-1.0); TOTAL PROTEIN 6.9 g/dL (6.7-8.2)
[2020-05-05 19:02] LABS: HGB - HEMOGLOBIN 6.1 g/dL (12.0-16.0)
== END 2020-05-05 23:59 | disposition home or self-care (01) ==
LOC: LAB.WCP 14:00
PROVIDERS: ATTEND Internal Medicine Cardiovascular Disease
DX: I50.42 Chronic combined systolic (congestive) and diastolic (congestive) heart failure (principal); D64.9 Anemia, unspecified; R06.02 Shortness of breath; E87.1 Hypo-osmolality and hyponatremia
CPT/HCPCS: 36415; 80053; 82607; 83880; 83930; 85025; 85045

== ENCOUNTER 2020-05-05 19:58 | Observation (INO) | payer MEDICARE, BC ==
[2020-05-05 20:49] LABS: BASOPHILS % (AUTO) 0.5 %; EOSINOPHILS # (AUTO) 0.1 10^3/uL (0.0-0.7); EOSINOPHILS % (AUTO) 2.3 %; LYMPHOCYTES # (AUTO) 1.2 10^3/uL (1.5-3.5); LYMPHOCYTES % (AUTO) 20.2 %; MEAN CORPUSCULAR HEMOGLOBIN 32.8 pg (27.0-31.0); MEAN CORPUSCULAR HGB CONC 32.8 g/dL (32.0-36.0); MONOCYTES # (AUTO) 0.6 10^3/uL (0.0-1.0); MONOCYTES % (AUTO) 10.4 %; NEUTROPHILS # (AUTO) 4.1 10^3/uL (1.5-6.6); NEUTROPHILS % (AUTO) 65.9 %; PLT - PLATELET COUNT 259 10^3/uL (130-450); RED BLOOD COUNT 1.95 10^6/uL (4.20-5.40); RED CELL DISTRIBUTION WIDTH 15.6 % (12.0-15.0); WHITE BLOOD COUNT 6.2 x10^3/uL (4.8-10.8)
[2020-05-05 20:50] LABS: HGB - HEMOGLOBIN 6.4 g/dL (12.0-16.0)
[2020-05-05 21:00] LABS: ALBUMIN 3.6 g/dL (3.2-5.5); ALBUMIN/GLOBULIN RATIO 1.1 (1.0-2.2); BILIRUBIN,TOTAL 0.6 mg/dL (0.2-1.0); CALCIUM 8.5 mg/dL (8.5-10.3); CREATININE 2.6 mg/dL (0.4-1.0)
--- NOTE | 2020-05-05 22:32 | ED Physician Documentation ---
History of Present Illness - Stated complaint Stated Complaint: REFERED BY DOCTOR - Chief complaint Chief Complaint: General - History obtained from History obtained from: Patient, Family - Additonal information Additional information: Patient sent to the emergency department from her by her doctor for severe anemia after experiencing dyspnea on exertion. Patient states that she is on Coumadin for history of atrial fibrillation and that her INR most recently was 2.9. She denies any obvious melena, but states that she takes iron so her stools are always dark. No vomiting blood. No bleeding anywhere else that she can tell. Patient states she has been anemic all her life but it is never been this bad. She states that a few weeks ago, she been began noticing progressively worsening dyspnea on exertion. She states that now, she is sitting down or lying in bed, she feels okay, but as soon as she gets up to walk, she becomes extremely tired and has to rest frequently. No syncope or lightheadedness. No chest pain. No other complaints at this time. Review of Systems Ten Systems: 10 systems reviewed and negative Constitutional: reports: Reviewed and negative Eyes: reports: Reviewed and negative Ears: reports: Reviewed and negative Nose: reports: Reviewed and negative Throat: reports: Reviewed and negative Cardiac: reports: Reviewed and negative Respiratory: reports: Dyspnea GI: reports: Reviewed and negative : reports: Reviewed and negative Skin: reports: Reviewed and negative Musculoskeletal: reports: Reviewed and negative Neurologic: reports: Reviewed and negative Psychiatric: reports: Reviewed and negative Endocrine: reports: Reviewed and negative Immunocompromised: reports: Reviewed and negative PD PAST MEDICAL HISTORY - Past Medical History Past Medical History: Yes Cardiovascular: Hypertension, High cholesterol, Coronary artery disease Respiratory: None Neuro: None Endocrine/Autoimmune: Type 2 diabetes, HyPOthyroidism GI: GERD 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, Breast cancer : Retention, Incontinence HEENT: Chronic hearing loss Psych: Depression Musculoskeletal: Osteoarthritis Derm: None - Past Surgical History Past Surgical History: Yes General: Cholecystectomy, Appendectomy Ortho: Hip replacement /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: 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, Mastectomy Cardiovascular: CABG, Coronary stent - Present Medications Home Medications: Ambulatory Orders Medication Instructions Recorded Confirmed Aspirin 81 mg PO DAILY 07/22/17 08/09/17 Ferrous Gluconate 648 mg PO DAILY 07/22/17 08/09/17 Insulin Detemir [Levemir Flextouch] 33 units SUBQ DAILY 07/22/17 08/09/17 Isosorbide Mononitrate ER [Imdur] 120 mg PO DAILY 07/22/17 08/09/17 Levothyroxine Sodium 100 mcg PO QDAC 07/22/17 08/09/17 Losartan [Cozaar] 50 mg PO BID 07/22/17 08/09/17 Magnesium Oxide [Mag Ox] 400 mg PO QPM 07/22/17 08/09/17 Metoprolol Succinate [Toprol Xl] 25 mg PO DAILY 07/22/17 08/09/17 Nitroglycerin [Nitrostat] 0.4 mg PO Q5MIN PRN 07/22/17 08/09/17 Omeprazole 20 mg PO QDAC 07/22/17 08/09/17 Ranolazine [Ranexa] 500 mg PO BID 07/22/17 08/09/17 Torsemide 60 mg PO DAILY 07/22/17 08/09/17 Triamcinolone 0.1% Cream [Kenalog 1 applic TOP BID 07/22/17 08/09/17 0.1% Cream] Warfarin [Coumadin] 2 mg PO DAILY MDD Mo, Tu, Th, Sa, 07/22/17 08/09/17 Alexandre hydrALAZINE [Apresoline] 20 mg PO BID 07/22/17 08/09/17 Warfarin Sodium [Coumadin] 4 mg PO DAILY MDD We, Fr 08/09/17 08/09/17 Lidocaine Patch 5% [Lidoderm Patch] 1 each TOP DAILY PRN #10 patch 12/19/17 Alendronate [Fosamax] 70 mg PO Q7D 05/05/20 05/05/20 Chlorthalidone 12.5 mg ORAL DAILY 05/05/20 05/05/20 Gabapentin 100 mg PO QPM 05/05/20 05/05/20 Loperamide [Imodium] 2 mg PO ONCE 05/05/20 05/05/20 Pravastatin [Pravachol] 20 mg ORAL DAILY 05/05/20 05/05/20 Sertraline [Zoloft] 25 mg PO DAILY 05/05/20 05/05/20 - Allergies Allergies/Adverse Reactions: Allergies Allergy/AdvReac Type Severity Reaction Status Date / Time amlodipine Allergy Unknown Verified 05/05/20 20:52 atorvastatin Allergy Unknown Verified 05/05/20 20:52 sitagliptin [From Januvia] Allergy Unknown Verified 05/05/20 20:52 albuterol AdvReac Unknown TREMMORS Verified 05/05/20 20:52 codeine AdvReac Unknown Nausea Verified 05/05/20 20:52 morphine AdvReac Unknown Nausea Verified 05/05/20 20:52 Sulfa (Sulfonamide AdvReac Unknown Nausea Verified 05/05/20 20:52 Antibiotics) ezetimibe [From Zetia] AdvReac Unknown Verified 05/05/20 20:52 rosuvastatin [From Crestor] AdvReac Unknown Verified 05/05/20 20:52 all codeine derivatives Allergy Unknown Uncoded 05/05/20 20:52 cardiac med starts with "Z" Allergy Unknown Uncoded 05/05/20 20:52 - Social History Does the pt smoke?: No Smoking Status: Never smoker Does the pt drink ETOH?: No Does the pt have substance abuse?: No - Immunizations Immunizations are current?: Yes - POLST Patient has POLST: No POLST Status: DNR PD ED PE NORMAL - Vitals Vital signs reviewed: Yes - General General: Alert and oriented X 3, No acute distress, Well developed/nourished - HEENT HEENT: Atraumatic, PERRL, EOMI, Moist mucous membranes - Neck Neck: Supple, no meningeal sign - Cardiac Cardiac: RRR, No murmur, Strong equal pulses - Respiratory Respiratory: No respiratory distress, Clear bilaterally - Abdomen Abdomen: Soft, Non tender, Non distended - Rectal Rectal: Other (Mild amount of brown stool, no gross blood or melena.) - Back Back: No CVA TTP - Derm Derm: Warm and dry, No rash, Other (Patient exhibits marked pallor.) - Extremities Extremities: No deformity, No edema, No calf tenderness / cord - Neuro Neuro: Alert and oriented X 3, rn team leader 2-12 intact, Other (Grossly intact. Patient is able to give all history for herself and is very clear mentally.) - Psych Psych: Normal mood, Normal affect Results - Vitals Vitals: Vital Signs - 24 hr 05/05/20 05/05/20 05/05/20 20:06 22:21 22:35 Temperature 36.8 C 36.7 C 37.0 C Heart Rate 97 79 81 Respiratory 20 16 16 Rate Blood Pressure 107/52 L 158/70 H 145/83 H O2 Saturation 100 Oxygen O2 Source Room air - EKG (time done) 2245 Rate: Rate (enter#) (77) Rhythm: Atrial flutter [place]: RAD QRS: Low voltage Ischemia: ST depression (Lateral leads, less than 1 mm in V5, 1 mm in V6.), T wave inversion (Inferior and lateral leads) - Labs Labs: Microbiology 05/05/20 21:45 Occult Blood - Final Stool Laboratory Tests 05/05/20 05/05/20 05/05/20 20:35 20:35 20:35 WBC 6.2 RBC 1.95 L Hgb 6.4 L* Hct 19.5 L* MCV 100.0 H MCH 32.8 H MCHC 32.8 RDW 15.6 H Plt Count 259 MPV 9.0 Neut # (Auto) 4.1 Lymph # (Auto) 1.2 L [place] # (Auto) 0.6 Eos # (Auto) 0.1 Baso # (Auto) 0.0 Absolute Nucleated RBC 0.00 Nucleated RBC % 0.0 Sodium 132 L Potassium 4.2 Chloride 90 L Carbon Dioxide 26 Anion Gap 16.0 H BUN 60 H Creatinine 2.6 H Estimated GFR (MDRD) 17 L Glucose 167 H Calcium 8.5 Iron TIBC % Saturation Transferrin Total Bilirubin 0.6 AST 18 ALT 11 Alkaline Phosphatase 79 Troponin I High Sens Total Protein 7.0 Albumin 3.6 Globulin 3.4 Albumin/Globulin Ratio 1.1 Lipase 42 Vitamin B12 809 Folate 9.84 Blood Type Antibody Screen Crossmatch IS Only 05/05/20 05/05/20 05/05/20 20:35 20:35 20:45 WBC RBC Hgb Hct MCV MCH MCHC RDW Plt Count MPV Neut # (Auto) Lymph # (Auto) [place] # (Auto) Eos # (Auto) Baso # (Auto) Absolute Nucleated RBC Nucleated RBC % Sodium Potassium Chloride Carbon Dioxide Anion Gap BUN Creatinine Estimated GFR (MDRD) Glucose Calcium Iron 134 TIBC 356 % Saturation 38 Transferrin 254 Total Bilirubin AST ALT Alkaline Phosphatase Troponin I High Sens 22.4 H* Total Protein Albumin Globulin Albumin/Globulin Ratio Lipase Vitamin B12 Folate Blood Type AB POSITIVE Antibody Screen NEGATIVE Crossmatch IS Only See Detail PD MEDICAL DECISION MAKING - ED course Complexity details: reviewed old records, reviewed results, re-evaluated pat ient, considered differential, d/w patient, d/w family ED course: Patient was worked up in the emergency department with labs, and EKG. Hemoglobin was found to be 6.4 here. EKG showed global ischemia. Patient's troponin was mildly elevated. I felt the patient should have blood immediately, and I did order a type and cross of 2 units for transfusion. I felt that it was most likely that the patient's severe anemia was causing the global ischemia, though the patient does have a history of coronary artery disease, which does put her at even further risk for cardiac ischemia. I spoke with Dr. Jacob, who is on-call for hospitalist service, and he agreed to admit the patient to his service. Departure - Departure Disposition: [facility] DC/[place] Clinical Impression: Symptomatic anemia Condition: Serious Discharge Date/Time: 05/05/20 23:02
[2020-05-05] MEDS ORDERED: ACETAMINOPHEN 325 MG TABLET PO PRN (22:36)
[2020-05-05] MEDS ORDERED: SODIUM CHLORIDE FLUSH 0.9% 10 ML SYRINGE IVP PRN (22:36)
[2020-05-05] MEDS ORDERED: ONDANSETRON 4 MG/2 ML VIAL IVP PRN (22:36)
--- NOTE | 2020-05-05 22:46 | HISTORY & PHYSICAL EXAMINATION ---
Chief Complaint - Chief Complaint Chief Complaint: abnormal labs, dyspnea History of Present Illness - Admitted From Admitted From:: [facility] ED - History Obtained From Records Reviewed: yes History obtained from: patient and ED physician - History of Present Illness HPI Comment/Other: Patient is an 85-year-old female who presented to the ED after she received a call from her laundromat manager (Dr Kellogg's) office advising her to go to the [facility]. She had routine lab work done earlier in the day. She was found to have a hemoglobin of 6.4.This labs were ordered because the patient has been having shortness of breath for months now. As a result she called and reports that her symptoms to her laundromat manager and had her routine appointment moved up. She gets around using a walker. She can only walk a few feet before she has to stop to catch her breath. She denied chest pain, abdominal pain, nausea, vomiting, fever or chills. She has a baseline tremor which is new in the past 1 year. She is on Coumadin for atrial fibrillation. She denies noticing any blood in her stool. Work-up in the ED included a stool guaiac test which was negative. Patient is being admitted for treatment with packed red blood cell transfusions. History - Past Medical History Cardiovascular: reports: Hypertension, High cholesterol, Coronary artery disease, Atrial fibrillation Respiratory: reports: None Neuro: reports: None Endocrine/Autoimmune: reports: Type 2 diabetes, HyPOthyroidism GI: reports: GERD COPY DIRECTOR: reports: None, Breast cancer : reports: Retention, Incontinence HEENT: reports: Chronic hearing loss Psych: reports: Depression Musculoskeletal: reports: Osteoarthritis Derm: reports: None MRSA Hx?: No - Past Surgical History General: reports: Cholecystectomy, Appendectomy Ortho: reports: Hip replacement /COPY DIRECTOR: reports: 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, Mastectomy Cardiovascular: reports: CABG, Coronary stent - Family & Social History Family History: Mother: Cancer, Father: [place] Living arrangement: Assisted living (Patient lives at [facility]) Living Situation: Alone Social History Notes: He does not use tobacco products or recreational substances. She rarely drinks alcohol. - Substance History Use: Uses substance without health or social issues: NONE - POLST Patient has POLST: Yes POLST Status: Full Code (patient requested full code today 05/05/2020) Meds/Allgy - Home Medications Home Medications: Ambulatory Orders Medication Instructions Recorded Confirmed Aspirin 81 mg PO DAILY 07/22/17 08/09/17 Ferrous Gluconate 648 mg PO DAILY 07/22/17 08/09/17 Insulin Detemir [Levemir Flextouch] 33 units SUBQ DAILY 07/22/17 08/09/17 Isosorbide Mononitrate ER [Imdur] 120 mg PO DAILY 07/22/17 08/09/17 Levothyroxine Sodium 100 mcg PO QDAC 07/22/17 08/09/17 Losartan [Cozaar] 50 mg PO BID 07/22/17 08/09/17 Magnesium Oxide [Mag Ox] 400 mg PO QPM 07/22/17 08/09/17 Metoprolol Succinate [Toprol Xl] 25 mg PO DAILY 07/22/17 08/09/17 Nitroglycerin [Nitrostat] 0.4 mg PO Q5MIN PRN 07/22/17 08/09/17 Omeprazole 20 mg PO QDAC 07/22/17 08/09/17 Ranolazine [Ranexa] 500 mg PO BID 07/22/17 08/09/17 Torsemide 60 mg PO DAILY 07/22/17 08/09/17 Triamcinolone 0.1% Cream [Kenalog 1 applic TOP BID 07/22/17 08/09/17 0.1% Cream] Warfarin [Coumadin] 2 mg PO DAILY MDD Mo, Tu, Th, Sa, 07/22/17 08/09/17 Alexandre hydrALAZINE [Apresoline] 20 mg PO BID 07/22/17 08/09/17 Warfarin Sodium [Coumadin] 4 mg PO DAILY MDD We, Fr 08/09/17 08/09/17 Lidocaine Patch 5% [Lidoderm Patch] 1 each TOP DAILY PRN #10 patch 12/19/17 Alendronate [Fosamax] 70 mg PO Q7D 05/05/20 05/05/20 Chlorthalidone 12.5 mg ORAL DAILY 05/05/20 05/05/20 Gabapentin 100 mg PO QPM 05/05/20 05/05/20 Loperamide [Imodium] 2 mg PO ONCE 05/05/20 05/05/20 Pravastatin [Pravachol] 20 mg ORAL DAILY 05/05/20 05/05/20 Sertraline [Zoloft] 25 mg PO DAILY 05/05/20 05/05/20 - Allergies Allergies/Adverse Reactions: Allergies Allergy/AdvReac Type Severity Reaction Status Date / Time amlodipine Allergy Unknown Verified 05/05/20 20:52 atorvastatin Allergy Unknown Verified 05/05/20 20:52 sitagliptin [From Januvia] Allergy Unknown Verified 05/05/20 20:52 albuterol AdvReac Unknown TREMMORS Verified 05/05/20 20:52 codeine AdvReac Unknown Nausea Verified 05/05/20 20:52 morphine AdvReac Unknown Nausea Verified 05/05/20 20:52 Sulfa (Sulfonamide AdvReac Unknown Nausea Verified 05/05/20 20:52 Antibiotics) ezetimibe [From Zetia] AdvReac Unknown Verified 05/05/20 20:52 rosuvastatin [From Crestor] AdvReac Unknown Verified 05/05/20 20:52 all codeine derivatives Allergy Unknown Uncoded 05/05/20 20:52 cardiac med starts with "Z" Allergy Unknown Uncoded 05/05/20 20:52 Review of Systems - Constitutional Constitutional: denies: Fatigue, Fever, Chills - Eyes Eyes: denies: Pain - Ears, Nose & Throat Ears, Nose & Throat: denies: Ear pain - Cardiovascular Cariovascular: reports: Irregular heart rate. denies: Chest pain, Edema - Respiratory Respiratory: reports: SOB at rest, SOB with exertion. denies: Cough, Sputum production, Wheezing - Gastrointestinal Gastrointestinal: denies: Abdominal pain, Abdominal distention, Black stools, Bloody stools, Nausea, Vomiting - Genitourinary Genitourinary: denies: Dysuria, Frequency, Urgency - Musculoskeletal Musculoskeletal: denies: Muscle pain, Back pain, Muscle aches - Integumentary Integumentary: denies: Rash, Lesions, Dryness - Neurological Neurological: denies: General weakness, Focal weakness, Headache - Psychiatric Psychiatric: denies: Depression, Anxiety - Endocrine Endocrine: denies: Polyuria, Polydypsia - Hematologic/Lymphatic Hematologic/Lymphatic: reports: Anemia, Bruising Prior Level of Functionality: Patient is independent of activities of daily living. She lives at [facility]. She gets around using a walker. However she has become short of breath in the past few months. She can only ambulate a few feet before she has to stop for of break. Exam - Vital Signs Vital Signs: Vital Signs x48h Temp Pulse Resp BP Pulse Ox 05/05/20 22:35 37.0 C 81 16 145/83 H 05/05/20 22:21 36.7 C 79 16 158/70 H 05/05/20 20:06 36.8 C 97 20 107/52 L 100 - Physical Exam General Appearance: positive: No acute distress, Alert Eyes Bilateral: positive: PERRL, EOMI ENT: positive: No signs of dehydration Neck: positive: No JVD, Trachea midline Respiratory: positive: Chest non-tender, Other (mild crackle on left lower lungs). negative: No respiratory distress Cardiovascular: positive: Irregularly irregular Abdomen: positive: Non-tender, No organomegaly, Nml bowel sounds, No distention. negative: Guarding, Rebound Rectal: positive: Stool - heme NEG Skin: positive: Other (bruising on for arms) Extremities: positive: Non-tender, No pedal edema Neurologic/Psychiatric: positive: Oriented x3, Mood/affect nml Conclusion/Plan - Problem List (1) Symptomatic anemia Conclusion/Plan: Macrocytic anemia. Etiology undetermined Patient's iron levels are normal. Vitamin B12 and folate are also normal. Patient's stool guaiac test was negative. Patient receiving 2 units of packed red blood cells. Will recheck H&H in the am. If anemia recurs, patient may benefit from a colonoscopy (2) Atrial fibrillation Conclusion/Plan: Patient is on Toprol-XL 25 mg p.o. daily. Will continue once verified. In the absence of blood in stool we will continue patient's Coumadin. (3) Hypertension Conclusion/Plan: On hydralazine, Imdur, valsartan and metoprolol (4) Diabetes mellitus Conclusion/Plan: Patient takes Levemir 27 units subcu nightly. Lantus 27 units subcu ordered. Accu-Cheks q. before meals and at bedtime. Qualifiers: Diabetes mellitus type: type 2 (5) Hx of coronary artery disease Conclusion/Plan: Patient takes Toprol-XL, pravastatin, Imdur, losartan and Ranexa (6) Hypothyroidism Conclusion/Plan: On Synthroid 100 mcg q. AC (7) Osteoporosis Conclusion/Plan: On Fosamax - Lab Results Fish Bones: 05/05/20 20:35 05/05/20 20:35 Core Measures - Anticipated LOS I expect patient to be DC'd or transferred within 96 hours.: Yes - DVT/VTE - Prophylaxis VTE/DVT Device ordered at admit?: Yes VTE/DVT Prophylaxis med ordered at admit?: Yes
[2020-05-05 23:03] LABS: % IRON SATURATION 38 % (20-50); IRON 134 ug/dL (28-170); TOTAL IRON BINDING CAPACITY 356 ug/dL (250-450); TRANSFERRIN 254 mg/dL (192-382)
[2020-05-05 23:29] LABS: FOLATE 9.84 ng/mL (5.90 - >24.8)
[2020-05-06] MEDS ORDERED: FUROSEMIDE 20 MG/2 ML VIAL IVP PRN (00:07)
[2020-05-06] MEDS: SODIUM CHLORIDE FLUSH 0.9% 10 ML SYRINGE IVP SCH ×2 (00:27→11:27)
[2020-05-06] MEDS ORDERED: SODIUM CHLORIDE 0.9% 500 ML IV ONE (00:34)
[2020-05-06] MEDS ORDERED: INSULIN GLARGINE 300 UNIT/3 ML PEN SUBQ SCH (01:00)
[2020-05-06 05:32] LABS: BASOPHILS % (AUTO) 0.1 %; EOSINOPHILS # (AUTO) 0.1 10^3/uL (0.0-0.7); EOSINOPHILS % (AUTO) 1.9 %; HGB - HEMOGLOBIN 9.3 g/dL (12.0-16.0); LYMPHOCYTES # (AUTO) 1.1 10^3/uL (1.5-3.5); LYMPHOCYTES % (AUTO) 16.2 %; MEAN CORPUSCULAR HEMOGLOBIN 32.2 pg (27.0-31.0); MEAN CORPUSCULAR HGB CONC 33.9 g/dL (32.0-36.0); MEAN CORPUSCULAR VOLUME 94.8 fL (81.0-99.0); MONOCYTES # (AUTO) 0.7 10^3/uL (0.0-1.0); MONOCYTES % (AUTO) 9.9 %; NEUTROPHILS # (AUTO) 4.9 10^3/uL (1.5-6.6); NEUTROPHILS % (AUTO) 71.5 %; PLT - PLATELET COUNT 241 10^3/uL (130-450); RED BLOOD COUNT 2.89 10^6/uL (4.20-5.40); WHITE BLOOD COUNT 6.9 x10^3/uL (4.8-10.8)
[2020-05-06 05:45] LABS: CALCIUM 8.5 mg/dL (8.5-10.3); CREATININE 2.3 mg/dL (0.4-1.0)
[2020-05-06 07:36] LABS: ALBUMIN 3.6 g/dL (3.2-5.5); BILIRUBIN,DIRECT 0.1 mg/dL (0.1-0.5); BILIRUBIN,TOTAL 0.6 mg/dL (0.2-1.0); TOTAL PROTEIN 6.8 g/dL (6.7-8.2)
[2020-05-06 08:39] LABS: PLATELET ESTIMATE, MANUAL NORMAL (130-450,000) (NORMAL); PLATELET MORPHOLOGY NORMAL APPEARANCE (NORMAL)
--- NOTE | 2020-05-06 09:17 | Discharge Plan ---
Discharge Plan Problem Reviewed?: Yes Disposition: Home, Self Care Condition: Stable Diet: Cardiac (caradiac an diabetic diet) Activity Restrictions: bleeding precautions Shower Restrictions: No Driving Restrictions: No Weight Bearing: Full Weight Health Concerns: 1) Symptomatic anemia You were sent to the ED for transfusion when your hemoglobin and hematocrit was found to be very low (6.4/19.5, normal is ~ 10/30 or higher) Your blood counts were normal in December 2019 You had no evident bleeding , and your stool tested negative for blood You were hemodynamically stable although for you, the blood pressure of 107/52 is onthe low side, and your heart rate was near 100 Your iron studies were normal, and you continue to take iron for a history of iron deficiency anemia You had an INR on 05/05 of 2.9. (with no blood in the stool) You received 2 units of packed red blood cells with a hemoglobin/hematocrit of 9.3/27.4 after transfusion You mentioned that your INr had at times been over 3. Possibly when you were a little high on your INR you were having slow blood loss from somewhere in your GI system, but since your iron pills make the stool black it was not evident. It does not appear that you are "breaking up" (lysing/ or destroying) red cells in your body, although labs were sent to check this (normal bilirubin You are scheduled to have repeat hemoglobin/hematocrit (blood count) and chemistry panel to check kidney function on Wednesday 05/09 at 11:45 am 2) Acute on chronic kidney injury Possibly, your blood pressure may have been over treated with all your heart meds at some point when your blood count was very low and the low blood pressure affected the flow thru your kidneys. AFter blood transfusion , your blood pressure is ok Your kidney function has declined since December Creatinene was 2.6 05/05 Your blood pressure may have been over treated with all your heart meds at some point when your blood count was very low and the low blood pressure affected the flow thru our kidneys. Your kidney function has declined since December Creatinine was 1.8 in December, It is 2.6 on admission 05/05 Iron studies Ferritin 66, Iro 134, TIBC 356 % sat 38 Transferren B12 851, Folate 9.84 LDH 198 Peripheral smear pending Plan of Treatment: above repeat Blood work on wednesday 05/09 at 11:45 am to check your kidney function, H/H and INR IF you have any evident bleeding, maroon stool, vomiting blood, or black sticky stool different thatn the black stool on iron pills hold the coumadin and have stool checked for blood Hold your Torsemide and Cozaar until your lab work is checked on Saturday No Smoking: If you smoke, Please STOP! Call for help.
[2020-05-06] MEDS ORDERED: TORSEMIDE 20 MG TABLET PO SCH (10:00)
[2020-05-06] MEDS ORDERED: METOPROLOL SUCCINATE 25 MG TABLET PO SCH (10:00)
[2020-05-06] MEDS ORDERED: SERTRALINE 25 MG TABLET PO SCH (10:00)
[2020-05-06] MEDS ORDERED: LOSARTAN 50 MG TABLET PO SCH (10:00)
--- NOTE | 2020-05-06 11:47 | Discharge Plan ---
Discharge Plan for SNF / [facility] - Discharge Plan And Transition Orders Problem Reviewed?: Yes Disposition: 03 SNF DC/Xfer Condition: Stable Allergies and Adverse Reactions: Allergies Allergy/AdvReac Type Severity Reaction Status Date / Time amlodipine Allergy Unknown Verified 05/05/20 20:52 atorvastatin Allergy Unknown Verified 05/05/20 20:52 sitagliptin [From Januvia] Allergy Unknown Verified 05/05/20 20:52 albuterol AdvReac Unknown TREMMORS Verified 05/05/20 20:52 codeine AdvReac Unknown Nausea Verified 05/05/20 20:52 morphine AdvReac Unknown Nausea Verified 05/05/20 20:52 Sulfa (Sulfonamide AdvReac Unknown Nausea Verified 05/05/20 20:52 Antibiotics) ezetimibe [From Zetia] AdvReac Unknown Verified 05/05/20 20:52 rosuvastatin [From Crestor] AdvReac Unknown Verified 05/05/20 20:52 all codeine derivatives Allergy Unknown Uncoded 05/05/20 20:52 cardiac med starts with "Z" Allergy Unknown Uncoded 05/05/20 20:52 Health Concerns: 1) Symptomatic anemia You were sent to the ED for transfusion when your hemoglobin and hematocrit was found to be very low (6.4/19.5, normal is ~ 10/30 or higher) Your blood counts were normal in December 2019 You had no evident bleeding , and your stool tested negative for blood You were hemodynamically stable although for you, the blood pressure of 107/52 is onthe low side, and your heart rate was near 100 Your iron studies were normal, and you continue to take iron for a history of iron deficiency anemia You had an INR on 05/05 of 2.9. (with no blood in the stool) continue your current warfarin; 2 mg Mon, Tu, Th, Sat, and 4 mg Wed, Fri You received 2 units of packed red blood cells with a hemoglobin/hematocrit of 9.3/27.4 after transfusion You mentioned that your INr had at times been over 3. Possibly when you were a little high on your INR you were having slow blood loss from somewhere in your GI system, but since your iron pills make the stool black it was not evident. It does not appear that you are "breaking up" (lysing/ or destroying) red cells in your body, although labs were sent to check this (normal bilirubin You are scheduled to have repeat hemoglobin/hematocrit (blood count) and chemistry panel to check kidney function on Wednesday 05/09 at 11:45 am 2) Acute on chronic kidney injury Possibly, your blood pressure may have been over treated with all your heart meds at some point when your blood count was very low and the low blood pressure affected the flow thru your kidneys. AFter blood transfusion , your blood pressure is ok Your kidney function has declined since December Creatinene was 2.6 05/05 Your blood pressure may have been over treated with all your heart meds at some point when your blood count was very low and the low blood pressure affected the flow thru our kidneys. Your kidney function has declined since December Creatinine was 1.8 in December, It is 2.6 on admission 05/05 Iron studies Ferritin 66, Iro 134, TIBC 356 % sat 38 Transferren B12 851, Folate 9.84 LDH 198 Peripheral smear pending Plan of Treatment: above repeat Blood work on wednesday 05/09 at 11:45 am to check your kidney function, H/H and INR ([facility]) IF you have any evident bleeding, maroon stool, vomiting blood, or black sticky stool different thatn the black stool on iron pills hold the coumadin and have stool checked for blood Hold your Torsemide and Cozaar until your lab work is checked on Saturday - SNF / RETIREMENT Transition Orders Admit to (Facility): [facility] Under the care of (Name): Dr Gee Discharge Diagnosis: Symptomatic anemia No bleeding source identified Medicare Certification Statement: I certify that Post Hospital shelter care is medically necessary on a continuing basis for any of the conditions for which she/he is receiving care during hospitalization. Notify PCP of admission and forward orders to primary provider for signature. Weight on admission and: Weekly Other Notification Orders: Call PCP immediately if patient develops dyspnea, chest pain/tightness or edema. House Bowel Program: No Additional Bowel Program Orders: If no BM after 2 days, nurse may give M.O.M. 30ml PO PRN and/or ducolax Supp 1 OK and/or GEMA 250mg P.O., and/or senna 1-2 tabs PO. On day 3 nurse may give repeat above order until residents constipation is resolved. Annual Influenza Vaccine (between May 24 and December 21): Yes Two-step PPD per [facility] [phone] or approved exception documents: No Treatments & Other Orders: Ms Alejandre is scheduled to have BMP , H/H and inr checked saturday to recheck renal function and anemia. HOLD ARB/Cozaar and Torsemide diuretic til renal function rechecked Saturday. Per clinic patient not on pravastatin, not on chlorthalidone,. Hold coumadin IF any obvious bleeding. Per clinic review of meds; not on pravachol, not on chlorthalidone Oxygen Orders: none Lab Tests or X-ray Orders: 11:45 saturday in clinic BMP, H/H, INR Orthopedic Orders: none Medication Orders: PLEASE REFER TO THE DISCHARGE MEDICATION LIST. Insulin Orders?: Yes - Diet Type: Cardiac,DM Texture: Regular Liquids: Thin May have monthly special meal: Yes - Therapies | Activity Activity: No Restrictions Weight Bearing: Full Weight Follow Up: As above, has blood work scheduled in clinic on Saturday 11:45 am 05/09 BMP, H/H, INr Insulin Orders - SNF Basal | Correction | Custom Orders: Diagnosis: Diabetes Initiate hypo and hyperglycemia protocols for BG <70 and BG >375. May check BG PRN for signs/symptoms of dysglycemia. Frequency of BG checks: [AC/Meal/HS] Basal Insulin: [] Lantus 100 units / ml inject subq as follows: [] [x] Other: [x] Detemir 27 units daily each pm Correction Insulin: - Select the type of insulin below [Choose: Novolog/Humalog]100 units /ml insulin inject subq per orders indicate below [] LOW DOSE [] MODERATE DOSE [] MODERATE/HIGH DOSE [] HIGH DOSE GB UNITS GB UNITS GB UNITS GB UNITS 61-140 0 UNITS 61-140 0 UNITS 61-140 0 UNITS 61-140 0 UNITS 141-175 1 UNITS 141-175 1 UNITS 141-175 2 UNITS 141-175 3 UNITS 176-225 2 UNITS 176-225 3 UNITS 176-225 4 UNITS 176-225 5 UNITS 226-275 3 UNITS 226-275 5 UNITS 226-275 6 UNITS 226-275 7 UNITS 276-325 4 UNITS 276-325 7 UNITS 276-325 8 UNITS 276-325 9 UNITS 326-375 5 UNITS 326-375 9 UNITS 326-375 10 UNITS 326-375 11 UNITS >375 CONTACT MD >375 CONTACT MD >375 CONTACT MD >375 CONTACT MD Custom Dosing: [Choose: Novolog/Humalog] 100 units/ml Insulin inject subq as follows: GB Units 61-140 [] Units 141-175 [] Units 176-225 [] Units 226-275 [] Units 276-325 []Units 326-375 [] Units >375 Contact MD
--- NOTE | 2020-05-06 12:15 | PHARMACY PROGRESS NOTE ---
- Best Possible Medication History Admit Date and Time: 05/05/20 2236 Processed by: Pharmacy Medication History completed: Yes Patient Interview: Completed Secondary Source(s): Pharmacy records (PATIENT INTERVIEWED BY PHARMACY. PATIENT ABLE TO CONFIRM MEDICATIONS ), Insurance records As the person ultimately responsible for medication therapy, providers are able to order a medication from an existing home medication list in [facility] via the "Reconcile Routine" prior to Confirmation of that medication by customer support advisor. Such practice is discouraged except when the physician, in their clinical judgment, deems that a medical need exists for a medication without regard to previous use.
[2020-05-06 14:40] VITALS: BP 155/93
== END 2020-05-06 14:00 | disposition home or self-care (01) ==
LOC: ED 19:58 → MS2 22:36
PROVIDERS: ADMIT Internal Medicine; ATTEND Nurse Practitioner
DX: D53.9 Nutritional anemia, unspecified (principal); I11.0 Hypertensive heart disease with heart failure; I48.91 Unspecified atrial fibrillation; E11.9 Type 2 diabetes mellitus without complications; E03.9 Hypothyroidism, unspecified; K21.9 Gastro-esophageal reflux disease without esophagitis; I25.10 Atherosclerotic heart disease of native coronary artery without angina pectoris; E78.00 Pure hypercholesterolemia, unspecified; F32.9 Major depressive disorder, single episode, unspecified; R25.1 Tremor, unspecified; R33.9 Retention of urine, unspecified; R32 Unspecified urinary incontinence; H91.90 Unspecified hearing loss, unspecified ear; Z74.09 Other reduced mobility; Z95.1 Presence of aortocoronary bypass graft; Z95.5 Presence of coronary angioplasty implant and graft; Z96.649 Presence of unspecified artificial hip joint; Z79.82 Long term (current) use of aspirin; Z79.4 Long term (current) use of insulin; Z79.01 Long term (current) use of anticoagulants; R06.02 Shortness of breath; I50.42 Chronic combined systolic (congestive) and diastolic (congestive) heart failure; E87.1 Hypo-osmolality and hyponatremia; Z66 Do not resuscitate
CPT/HCPCS: 36415; 36430; 71046; 80048; 80053; 80076; 82272; 82607; 82728; 82746; 83010; 83540; 83615; 83690; 83880; 83930; 84466; 84484; 85025; 85045; 86850; 86900; 86901; 86920; 93005; 96374; 99285; A9270; G0378; J1815; P9016; 82270

== ENCOUNTER 2020-05-09 08:00 | Outpatient (CLI) | payer MEDICARE, BC | END 2020-05-09 23:59 | disposition home or self-care (01) | LOC: LAB.WCP 08:00 | PROVIDERS: ATTEND Family Medicine | DX: I48.91 Unspecified atrial fibrillation (principal); Z79.01 Long term (current) use of anticoagulants; E11.9 Type 2 diabetes mellitus without complications; D64.9 Anemia, unspecified | CPT/HCPCS: 36415; 80048; 85025 ==

== ENCOUNTER 2020-05-09 08:00 | Outpatient (CLI) | payer MEDICARE, BC ==
[2020-05-09 18:27] LABS: BASOPHILS % (AUTO) 0.6 %; EOSINOPHILS # (AUTO) 0.2 10^3/uL (0.0-0.7); EOSINOPHILS % (AUTO) 2.2 %; HGB - HEMOGLOBIN 9.3 g/dL (12.0-16.0); LYMPHOCYTES # (AUTO) 1.2 10^3/uL (1.5-3.5); LYMPHOCYTES % (AUTO) 17.8 %; MEAN CORPUSCULAR HEMOGLOBIN 32.4 pg (27.0-31.0); MEAN CORPUSCULAR HGB CONC 32.1 g/dL (32.0-36.0); MEAN PLATELET VOLUME 9.4 fL (7.9-10.8); MONOCYTES # (AUTO) 0.8 10^3/uL (0.0-1.0); MONOCYTES % (AUTO) 11.2 %; NEUTROPHILS # (AUTO) 4.6 10^3/uL (1.5-6.6); NEUTROPHILS % (AUTO) 67.8 %; PLT - PLATELET COUNT 232 10^3/uL (130-450); RED BLOOD COUNT 2.87 10^6/uL (4.20-5.40); RED CELL DISTRIBUTION WIDTH 15.4 % (12.0-15.0); WHITE BLOOD COUNT 6.9 x10^3/uL (4.8-10.8)
[2020-05-09 18:32] LABS: CALCIUM 8.8 mg/dL (8.5-10.3); CREATININE 1.7 mg/dL (0.4-1.0)
== END 2020-05-09 23:59 | disposition home or self-care (01) ==
LOC: LAB.WCP 08:00
PROVIDERS: ATTEND Physician Assistant
DX: E11.9 Type 2 diabetes mellitus without complications (principal); D64.9 Anemia, unspecified
CPT/HCPCS: 36415; 80048; 85025

== ENCOUNTER 2020-05-24 08:00 | Outpatient (CLI) | payer MEDICARE, BC ==
[2020-05-24 12:16] LABS: BASOPHILS % (AUTO) 0.7 %; EOSINOPHILS # (AUTO) 0.2 10^3/uL (0.0-0.7); EOSINOPHILS % (AUTO) 3.3 %; HGB - HEMOGLOBIN 9.6 g/dL (12.0-16.0); LYMPHOCYTES # (AUTO) 1.2 10^3/uL (1.5-3.5); LYMPHOCYTES % (AUTO) 19.6 %; MEAN CORPUSCULAR HEMOGLOBIN 32.2 pg (27.0-31.0); MEAN CORPUSCULAR HGB CONC 33.7 g/dL (32.0-36.0); MEAN CORPUSCULAR VOLUME 95.6 fL (81.0-99.0); MEAN PLATELET VOLUME 9.9 fL (7.9-10.8); MONOCYTES # (AUTO) 0.6 10^3/uL (0.0-1.0); MONOCYTES % (AUTO) 10.3 %; NEUTROPHILS % (AUTO) 65.4 %; PLT - PLATELET COUNT 258 10^3/uL (130-450); RED BLOOD COUNT 2.98 10^6/uL (4.20-5.40); RED CELL DISTRIBUTION WIDTH 14.3 % (12.0-15.0); WHITE BLOOD COUNT 6.1 x10^3/uL (4.8-10.8)
[2020-05-24 12:41] LABS: ALBUMIN 3.7 g/dL (3.2-5.5); ALBUMIN/GLOBULIN RATIO 1.2 (1.0-2.2); BILIRUBIN,TOTAL 0.6 mg/dL (0.2-1.0); CALCIUM 8.8 mg/dL (8.5-10.3); CREATININE 2.8 mg/dL (0.4-1.0); TOTAL PROTEIN 6.9 g/dL (6.7-8.2)
== END 2020-05-24 08:01 | disposition home or self-care (01) ==
LOC: LAB.WCP 08:00
PROVIDERS: ATTEND Family Medicine
DX: N18.4 Chronic kidney disease, stage 4 (severe) (principal); I50.42 Chronic combined systolic (congestive) and diastolic (congestive) heart failure; D64.9 Anemia, unspecified; E87.1 Hypo-osmolality and hyponatremia; R06.02 Shortness of breath
CPT/HCPCS: 36415; 80053; 82668; 82746; 85025

== ENCOUNTER 2020-06-07 08:00 | Outpatient (CLI) | payer MEDICARE, BC ==
[2020-06-07 12:41] LABS: CREATININE,URINE 44.2 mg/dL; PROTEIN/CREATININE RATIO,URINE 0.1 (<=0.2)
== END 2020-06-07 23:59 | disposition home or self-care (01) ==
LOC: LAB.WCP 08:00
PROVIDERS: ATTEND Internal Medicine Nephrology
DX: R80.9 Proteinuria, unspecified (principal)
CPT/HCPCS: 82570; 84156

== ENCOUNTER 2020-06-16 08:00 | Outpatient (CLI) | payer MEDICARE, BC ==
[2020-06-16 18:36] LABS: BASOPHILS % (AUTO) 0.1 %; EOSINOPHILS # (AUTO) 0.2 10^3/uL (0.0-0.7); EOSINOPHILS % (AUTO) 2.3 %; LYMPHOCYTES # (AUTO) 1.4 10^3/uL (1.5-3.5); LYMPHOCYTES % (AUTO) 18.9 %; MEAN CORPUSCULAR HEMOGLOBIN 32.5 pg (27.0-31.0); MEAN CORPUSCULAR HGB CONC 32.1 g/dL (32.0-36.0); MEAN CORPUSCULAR VOLUME 101.5 fL (81.0-99.0); MEAN PLATELET VOLUME 10.1 fL (7.9-10.8); MONOCYTES # (AUTO) 0.6 10^3/uL (0.0-1.0); MONOCYTES % (AUTO) 8.5 %; NEUTROPHILS # (AUTO) 5.1 10^3/uL (1.5-6.6); NEUTROPHILS % (AUTO) 69.7 %; PLT - PLATELET COUNT 237 10^3/uL (130-450); RED BLOOD COUNT 2.06 10^6/uL (4.20-5.40); RED CELL DISTRIBUTION WIDTH 15.7 % (12.0-15.0); WHITE BLOOD COUNT 7.3 x10^3/uL (4.8-10.8)
[2020-06-16 18:42] LABS: % IRON SATURATION 21 % (20-50); ALBUMIN 3.8 g/dL (3.2-5.5); ALBUMIN/GLOBULIN RATIO 1.2 (1.0-2.2); ALKALINE PHOSPHATASE 58 IU/L (42-121); ALT ALANINE AMINOTRANSFERASE 10 IU/L (10-60); AST ASPARTATE AMINOTRANSFERASE 10 IU/L (10-42); BILIRUBIN,TOTAL 0.7 mg/dL (0.2-1.0); CALCIUM 8.5 mg/dL (8.5-10.3); CARBON DIOXIDE - CO2 21 mmol/L (21-32); CHLORIDE 88 mmol/L (101-111); CHOL/HDL RATIO 7.1 (<4.4); CHOLESTEROL 228 mg/dL; CREATININE 3.3 mg/dL (0.4-1.0); GLUCOSE 166 mg/dL (70-100); HDL CHOLESTEROL 32 mg/dL; IRON 74 ug/dL (28-170); LDL CHOLESTEROL,CALCULATED 124 mg/dL; LDL/HDL RATIO 3.9 (<4.4); SODIUM 130 mmol/L (135-145); TOTAL IRON BINDING CAPACITY 346 ug/dL (250-450); TOTAL PROTEIN 6.9 g/dL (6.7-8.2); TRANSFERRIN 247 mg/dL (192-382); VLDL CHOLESTEROL 72 mg/dL
[2020-06-16 18:49] LABS: FERRITIN 66.2 ng/mL (11.0-306.8)
[2020-06-16 19:00] LABS: HEMOGLOBIN A1c% 6.4 % (4.27-6.07)
[2020-06-16 19:47] LABS: BUN - BLOOD UREA NITROGEN 87 mg/dL (6-20)
[2020-06-16 19:49] LABS: HGB - HEMOGLOBIN 6.7 g/dL (12.0-16.0)
[2020-06-16 19:51] LABS: PLATELET ESTIMATE, MANUAL NORMAL (130-450,000) (NORMAL); PLATELET MORPHOLOGY NORMAL APPEARANCE (NORMAL)
== END 2020-06-16 23:59 | disposition home or self-care (01) ==
LOC: LAB.WCP 08:00
PROVIDERS: ATTEND Family Medicine
DX: E11.22 Type 2 diabetes mellitus with diabetic chronic kidney disease (principal); N18.4 Chronic kidney disease, stage 4 (severe); D64.9 Anemia, unspecified
CPT/HCPCS: 36415; 80053; 80061; 81001; 82607; 82728; 82985; 83036; 83540; 83721; 84466; 85025

== ENCOUNTER 2020-06-17 10:03 | Emergency (ER) | payer MEDICARE, BC ==
[2020-06-17 11:09] LABS: BASOPHILS % (AUTO) 0.2 %; EOSINOPHILS # (AUTO) 0.1 10^3/uL (0.0-0.7); EOSINOPHILS % (AUTO) 2.3 %; LYMPHOCYTES % (AUTO) 17.1 %; MEAN CORPUSCULAR HEMOGLOBIN 33.2 pg (27.0-31.0); MEAN CORPUSCULAR HGB CONC 33.3 g/dL (32.0-36.0); MEAN CORPUSCULAR VOLUME 99.5 fL (81.0-99.0); MEAN PLATELET VOLUME 9.7 fL (7.9-10.8); MONOCYTES # (AUTO) 0.6 10^3/uL (0.0-1.0); MONOCYTES % (AUTO) 9.2 %; NEUTROPHILS # (AUTO) 4.3 10^3/uL (1.5-6.6); NEUTROPHILS % (AUTO) 70.7 %; PLT - PLATELET COUNT 216 10^3/uL (130-450); RED BLOOD COUNT 1.99 10^6/uL (4.20-5.40); RED CELL DISTRIBUTION WIDTH 15.5 % (12.0-15.0); WHITE BLOOD COUNT 6.1 x10^3/uL (4.8-10.8)
[2020-06-17 11:12] LABS: HGB - HEMOGLOBIN 6.6 g/dL (12.0-16.0); INR 3.1 (0.8-1.2); PT - PROTHROMBIN TIME 32.8 secs (9.9-12.6)
[2020-06-17 11:26] LABS: ALBUMIN 3.5 g/dL (3.2-5.5); ALBUMIN/GLOBULIN RATIO 1.1 (1.0-2.2); BILIRUBIN,TOTAL 0.6 mg/dL (0.2-1.0); CALCIUM 8.1 mg/dL (8.5-10.3); CREATININE 3.4 mg/dL (0.4-1.0); TOTAL PROTEIN 6.7 g/dL (6.7-8.2)
[2020-06-17 12:22] LABS: BILIRUBIN,URINE NEGATIVE (NEGATIVE); GLUCOSE, URINE (UA) NEGATIVE (NEGATIVE); KETONES,URINE (UA) NEGATIVE (NEGATIVE); LEUKOCYTE ESTERASE, URINE SMALL (NEGATIVE); NITRITE,URINE NEGATIVE (NEGATIVE); OCCULT BLOOD,URINE NEGATIVE (NEGATIVE); PROTEIN,URINE NEGATIVE (NEGATIVE); UROBILINOGEN,URINE 0.2 (NORMAL) E.U./dL (NORMAL)
[2020-06-17 12:23] LABS: CLARITY,URINE SL. CLOUDY (CLEAR)
[2020-06-17 12:32] LABS: RBC,URINE None Seen /HPF (0-5); SQUAMOUS EPITHELIAL CELL,UR RARE Squamous (<= Few)
[2020-06-17 12:33] LABS: BACTERIA,URINE Moderate /HPF (None Seen); WBC CLUMPS,URINE PRESENT
[2020-06-17] MEDS ORDERED: cefTRIAXone 1 GM in SODIUM CHLORIDE 0.9% MINIBAG 100 ML IV STA (14:23)
[2020-06-17] MEDS ORDERED: ACETAMINOPHEN 325 MG TABLET PO STA (14:39)
[2020-06-17] MEDS ORDERED: diphenhydrAMINE INJ 50 MG/ML VIAL IVP STA (14:39)
--- NOTE | 2020-06-17 14:41 | ED Physician Documentation ---
History of Present Illness - Stated complaint Stated Complaint: WEAKNESS - Chief complaint Chief Complaint: General - History obtained from History obtained from: Patient, Family - History of Present Illness Timing: How many weeks ago (1) - Additonal information Additional information: 85-year-old female with chronic anemia and chronic kidney disease has anemia she is required a transfusion previously and she is now weak again and her blood work indicates she requires another transfusion. Review of Systems Constitutional: reports: Fatigue. denies: Fever Eyes: denies: Decreased vision Ears: denies: Ear pain Nose: denies: Rhinorrhea / runny nose, Congestion Throat: denies: Sore throat Cardiac: denies: Chest pain / pressure, Palpitations Respiratory: reports: Dyspnea. denies: Cough GI: denies: Abdominal Pain, Nausea, Vomiting : denies: Dysuria, Frequency Neurologic: reports: Generalized weakness. denies: Focal weakness, Numbness PD PAST MEDICAL HISTORY - Past Medical History Past Medical History: Yes Cardiovascular: Hypertension, High cholesterol, Coronary artery disease Respiratory: None Neuro: None Endocrine/Autoimmune: Type 2 diabetes, HyPOthyroidism GI: GERD BEAN SORTER: None, Breast cancer : Retention, Incontinence HEENT: Chronic hearing loss Psych: Depression Musculoskeletal: Osteoarthritis Derm: None - Past Surgical History Past Surgical History: Yes General: Cholecystectomy, Appendectomy Ortho: Hip replacement /BEAN SORTER: 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, Mastectomy Cardiovascular: CABG, Coronary stent - Present Medications Home Medications: Ambulatory Orders Medication Instructions Recorded Confirmed Aspirin 81 mg PO DAILY 07/22/17 05/06/20 Ferrous Gluconate 648 mg PO DAILY 07/22/17 05/06/20 Levothyroxine Sodium 100 mcg PO QDAC 07/22/17 05/06/20 Magnesium Oxide [Mag Ox] 400 mg PO QPM 07/22/17 05/06/20 Nitroglycerin [Nitrostat] 0.4 mg PO Q5MIN PRN 07/22/17 05/06/20 Omeprazole 20 mg PO QDAC 07/22/17 05/06/20 Ranolazine [Ranexa] 500 mg PO BID 07/22/17 05/06/20 Triamcinolone 0.1% Cream [Kenalog 1 applic TOP BID PRN 07/22/17 05/06/20 0.1% Cream] Warfarin [Coumadin] 2 mg PO QDWARFARIN MDD TU,TH,SAT,GAMEZ 07/22/17 05/06/20 hydrALAZINE [Apresoline] 20 mg PO TID 07/22/17 05/06/20 Warfarin Sodium [Coumadin] 4 mg PO QDWARFARIN MDD MON,SAT,Sat08/09/17 05/06/20 Alendronate [Fosamax] 70 mg PO Q7D 05/05/20 05/05/20 Gabapentin 200 mg PO QPM 05/05/20 05/06/20 Sertraline [Zoloft] 25 mg PO DAILY 05/05/20 05/05/20 Chlorthalidone 12.5 mg PO DAILY 05/06/20 05/06/20 Cyanocobalamin (Vitamin B-12) 1,000 mcg IM .QMONTH 05/06/20 05/06/20 [Cyanocobalamin Injection] Insulin Detemir [Levemir Flextouch] 27 units SQ DAILY 05/06/20 05/06/20 Isosorbide Mononitrate [Isosorbide 120 mg PO DAILY 05/06/20 05/06/20 Mononitrate ER] Losartan [Cozaar] 50 mg PO BID 05/06/20 05/06/20 Metoprolol Succinate 37.5 mg PO BID 05/06/20 05/06/20 Torsemide 60 mg PO DAILY 05/06/20 05/06/20 Amox/Clav 500/125 [Augmentin] 1 each PO Q12H #14 tablet 06/17/20 - Allergies Allergies/Adverse Reactions: Allergies Allergy/AdvReac Type Severity Reaction Status Date / Time amlodipine Allergy Unknown Verified 06/17/20 10:13 atorvastatin Allergy Unknown Verified 06/17/20 10:13 sitagliptin [From Januvia] Allergy Unknown Verified 06/17/20 10:13 albuterol AdvReac Unknown TREMMORS Verified 06/17/20 10:13 codeine AdvReac Unknown Nausea Verified 06/17/20 10:13 morphine AdvReac Unknown Nausea Verified 06/17/20 10:13 Sulfa (Sulfonamide AdvReac Unknown Nausea Verified 06/17/20 10:13 Antibiotics) ezetimibe [From Zetia] AdvReac Unknown Verified 06/17/20 10:13 rosuvastatin [From Crestor] AdvReac Unknown Verified 06/17/20 10:13 all codeine derivatives Allergy Unknown Uncoded 05/05/20 20:52 cardiac med starts with "Z" Allergy Unknown Uncoded 05/05/20 20:52 - Social History Does the pt smoke?: No Smoking Status: Never smoker Does the pt drink ETOH?: No Does the pt have substance abuse?: No - Immunizations Immunizations are current?: Yes - POLST Patient has POLST: No POLST Status: DNR PD ED PE NORMAL - Vitals Vital signs reviewed: Yes (hyertensive ) - General General: Alert and oriented X 3, No acute distress, Well developed/nourished - HEENT HEENT: Atraumatic, PERRL, EOMI - Neck Neck: Supple, no meningeal sign, No bony TTP - Cardiac Cardiac: RRR, No murmur - Respiratory Respiratory: No respiratory distress, Clear bilaterally - Abdomen Abdomen: Normal bowel sounds, Soft, Non tender, Non distended, No organomegaly - Back Back: No CVA TTP, No spinal TTP - Derm Derm: Normal color, Warm and dry, No rash - Extremities Extremities: No deformity, No edema - Neuro Neuro: Alert and oriented X 3, car shagger 2-12 intact, No motor deficit, No sensory deficit, Normal speech Eye Opening: Spontaneous Motor: Obeys Commands Verbal: Oriented GCS Score: 15 - Psych Psych: Normal mood, Normal affect Results - Vitals Vitals: Vital Signs - 24 hr 06/17/20 06/17/20 06/17/20 10:13 10:46 11:16 Temperature 36.8 C 36.8 C Heart Rate 92 92 84 Respiratory 16 16 17 Rate Blood Pressure 138/100 H 138/100 H 150/100 H O2 Saturation 100 100 100 06/17/20 06/17/20 06/17/20 11:30 11:54 12:00 Temperature 36.2 C L 36.5 C Heart Rate 84 83 90 Respiratory 23 16 16 Rate Blood Pressure 150/90 H 124/64 127/99 H O2 Saturation 100 100 06/17/20 06/17/20 06/17/20 12:12 12:29 12:30 Temperature 36.6 C 36.4 C L 36.4 C L Heart Rate 82 100 100 Respiratory 14 16 16 Rate Blood Pressure 127/99 H 127/99 H 127/99 H O2 Saturation 100 06/17/20 06/17/20 06/17/20 13:00 13:30 14:00 Temperature 36.6 C 36.5 C 36.5 C Heart Rate 80 80 70 Respiratory 14 12 14 Rate Blood Pressure 117/80 107/63 113/89 H O2 Saturation 100 100 100 06/17/20 06/17/20 06/17/20 14:30 14:45 14:51 Temperature 36.5 C 36.8 C 36.5 C Heart Rate 88 97 77 Respiratory 18 16 16 Rate Blood Pressure 157/77 H 107/97 H 107/91 H O2 Saturation 100 06/17/20 06/17/20 06/17/20 15:00 15:05 15:17 Temperature 36.5 C 36.5 C 36.6 C Heart Rate 90 82 88 Respiratory 16 16 16 Rate Blood Pressure 150/78 H 130/80 150/80 H O2 Saturation 100 Oxygen O2 Source Room air - Labs Labs: Laboratory Tests 06/17/20 06/17/20 06/17/20 10:49 10:49 10:49 WBC 6.1 RBC 1.99 L Hgb 6.6 L* Hct 19.8 L* MCV 99.5 H MCH 33.2 H MCHC 33.3 RDW 15.5 H Plt Count 216 MPV 9.7 Neut # (Auto) 4.3 Lymph # (Auto) 1.0 L Dubois # (Auto) 0.6 Eos # (Auto) 0.1 Baso # (Auto) 0.0 Absolute Nucleated RBC 0.00 Nucleated RBC % 0.0 PT INR Sodium 128 L Potassium 4.8 Chloride 88 L Carbon Dioxide 20 L Anion Gap 20.0 H BUN 89 H* Creatinine 3.4 H Estimated GFR (MDRD) 13 L Glucose 141 H Calcium 8.1 L Total Bilirubin 0.6 AST 13 ALT 12 Alkaline Phosphatase 58 Total Protein 6.7 Albumin 3.5 Globulin 3.2 Albumin/Globulin Ratio 1.1 Lipase 36 Urine Color Urine Clarity Urine pH Ur Specific [place] Urine Protein Urine Glucose (UA) Urine Ketones Urine Occult Blood Urine Nitrite Urine Bilirubin Urine Urobilinogen Ur Leukocyte Esterase Urine RBC Urine WBC Urine WBC Clumps Ur Squamous Epith Cells Urine Bacteria Ur Microscopic Review Urine Culture Comments Blood Type AB POSITIVE Antibody Screen NEGATIVE Crossmatch IS Only See Detail 06/17/20 06/17/20 10:49 11:52 WBC RBC Hgb Hct MCV MCH MCHC RDW Plt Count MPV Neut # (Auto) Lymph # (Auto) Dubois # (Auto) Eos # (Auto) Baso # (Auto) Absolute Nucleated RBC Nucleated RBC % PT 32.8 H INR 3.1 H Sodium Potassium Chloride Carbon Dioxide Anion Gap BUN Creatinine Estimated GFR (MDRD) Glucose Calcium Total Bilirubin AST ALT Alkaline Phosphatase Total Protein Albumin Globulin Albumin/Globulin Ratio Lipase Urine Color YELLOW Urine Clarity SL. CLOUDY Urine pH 6.0 Ur Specific [place] 1.015 Urine Protein NEGATIVE Urine Glucose (UA) NEGATIVE Urine Ketones NEGATIVE Urine Occult Blood NEGATIVE Urine Nitrite NEGATIVE Urine Bilirubin NEGATIVE Urine Urobilinogen 0.2 (NORMAL) Ur Leukocyte Esterase SMALL H Urine RBC None Seen Urine WBC >25 H Urine WBC Clumps PRESENT Ur Squamous Epith Cells RARE Squamous Urine Bacteria Moderate H Ur Microscopic Review INDICATED Urine Culture Comments INDICATED Blood Type Antibody Screen Crossmatch IS Only Procedures - IVC sono (time) 1435 Bedside IVC sono: IVC measures (cm) (1.58), IVC collapsed c insp (cm) (1.08), [facility] PD MEDICAL DECISION MAKING - ED course Complexity details: reviewed old records, reviewed results, re-evaluated patient, considered differential, d/w patient, d/w family ED course: 85-year-old female with chronic kidney disease is anemic she is beyond the transfusion threshold and is called to the emergency department to have transfusion done as she is not able to get into the MAC clinic to have this done. She is feeling weak and having a difficult time standing. She is symptomatic from her anemia. A two unit transfusion is performed in the ED. She is pre-mediated with tylenol and benadryl for the second unit of blood. After the 1st unit is in her IVC is checked and collapses nicely with breathing. She did take her lasix this morning. Departure - Departure Disposition: 01 Home, Self Care Clinical Impression: Symptomatic anemia Urinary tract infection Qualifiers: Urinary tract infection type: acute cystitis Hematuria presence: with hematuria Qualified Code(s): N30.01 - Acute cystitis with hematuria Condition: Stable Instructions: ED UTI Cystitis Female, ED Anemia Type Not Specified Follow-Up: Miki Gee DO [Primary Care Provider] - Prescriptions: Amox/Clav 500/125 [Augmentin] 1 each PO Q12H #14 tablet Comments: We have put you on an antibiotic for urinary tract infection and you will need to recheck your INR in 3 days time.
[2020-06-17 18:30] VITALS: BP 118/64
== END 2020-06-17 18:42 | disposition home or self-care (01) ==
LOC: ED 10:03
DX: I12.9 Hypertensive chronic kidney disease with stage 1 through stage 4 chronic kidney disease, or unspecified chronic kidney disease (principal); N18.9 Chronic kidney disease, unspecified; D63.1 Anemia in chronic kidney disease; E11.22 Type 2 diabetes mellitus with diabetic chronic kidney disease; Z79.4 Long term (current) use of insulin; N30.01 Acute cystitis with hematuria; I25.10 Atherosclerotic heart disease of native coronary artery without angina pectoris; Z95.1 Presence of aortocoronary bypass graft; Z79.01 Long term (current) use of anticoagulants; Z79.82 Long term (current) use of aspirin; Z66 Do not resuscitate
CPT/HCPCS: 36415; 36430; 80053; 81001; 83690; 85025; 85610; 86850; 86900; 86901; 86920; 87077; 87086; 96365; 96375; 99283; 99285; A9270; J1200; P9016; 81003

== ENCOUNTER 2020-06-21 08:00 | Outpatient (CLI) | payer MEDICARE, BC | END 2020-06-21 23:59 | disposition home or self-care (01) | LOC: LAB.WCP 08:00 | PROVIDERS: ATTEND Family Medicine | DX: Z79.01 Long term (current) use of anticoagulants (principal) ==

== ENCOUNTER 2020-06-23 09:37 | Outpatient (CLI) | payer MEDICARE, BC ==
--- NOTE | 2020-06-23 11:20 | Ultrasound Report ---
PROCEDURE: Retroperitoneal PROCEDURE: Retroperitoneal INDICATIONS: STAGE IV KIDNEY DISEASE TECHNIQUE: Real-time scanning was performed of the kidneys and bladder, with image documentation. COMPARISON: None FINDINGS: Kidneys: Kidneys are normal in size. Right kidney measures routine 0.8 cm long; left kidney measure s 2.1 cm long. Right renal cortical thickness is 1.2 cm; left renal cortical thickness is 0.9 cm. R enal cortical echotexture is normal. No hydronephrosis or nephrolithiasis. No suspicious solid mass lesions. Bilateral renal cysts noted. Largest right renal cyst measures 2.0 x 1.5 x 2.0. Large left renal cyst measures 1.5 x 1.6 x 1.7 cm. Bladder: Pre-void bladder volume is 408 mL. Post-void residual is 59 mL. Pre-void images demonstra te no intraluminal masses or stones. On pre-void images, both the right and left ureteral jets are n oted with color Doppler interrogation. (Of note, ureteral jets may not be detectable in up to 25% of cases due to insufficient differences in specific gravity between ureteral and bladder urine). Miscellaneous: No free pelvic fluid. IMPRESSION: 1. Bilateral hydronephrosis. 2. Mild left renal cortical thinning. 3. Bilateral renal cysts. Reviewed by: Cecilia Calderon MD, PhD on 06/23/2020 11:19 AM PDT Approved by: Cecilia Calderon MD, PhD on 06/23/2020 11:19 AM PDT Station ID: [id number]
== END 2020-06-23 09:38 | disposition home or self-care (01) ==
LOC: DI 09:37
PROVIDERS: ATTEND Family Medicine
DX: N28.1 Cyst of kidney, acquired (principal); N28.89 Other specified disorders of kidney and ureter
CPT/HCPCS: 76770

== ENCOUNTER 2020-06-28 08:00 | Outpatient (CLI) | payer MEDICARE, BC | END 2020-06-28 23:59 | disposition home or self-care (01) | LOC: LAB.WCP 08:00 | PROVIDERS: ATTEND Family Medicine | DX: I48.91 Unspecified atrial fibrillation (principal); Z79.01 Long term (current) use of anticoagulants ==

== ENCOUNTER 2020-07-05 08:00 | Outpatient (CLI) | payer MEDICARE, BC | END 2020-07-05 23:59 | disposition home or self-care (01) | LOC: LAB.WCP 08:00 | PROVIDERS: ATTEND Family Medicine | DX: Z79.01 Long term (current) use of anticoagulants (principal) ==

== ENCOUNTER 2020-07-19 08:00 | Outpatient (CLI) | payer MEDICARE, BC | END 2020-07-19 23:59 | disposition home or self-care (01) | LOC: LAB.WCP 08:00 | PROVIDERS: ATTEND Family Medicine | DX: Z79.01 Long term (current) use of anticoagulants (principal) ==

== ENCOUNTER 2020-08-05 08:00 | Outpatient (CLI) | payer MEDICARE, BC | END 2020-08-05 08:01 | disposition home or self-care (01) | LOC: LAB.R 08:00 | PROVIDERS: ATTEND Family Medicine | DX: R19.7 Diarrhea, unspecified (principal) | CPT/HCPCS: 81599; 82270; 87045; 87046; 87177; 87209; 87329; 87427; 87493 ==

== ENCOUNTER 2020-08-09 08:00 | Outpatient (CLI) | payer MEDICARE, BC | END 2020-08-09 23:59 | disposition home or self-care (01) | LOC: LAB.R 08:00 | PROVIDERS: ATTEND Family Medicine | DX: R19.7 Diarrhea, unspecified (principal) | CPT/HCPCS: 82270 ==

== ENCOUNTER 2020-09-01 09:20 | Outpatient (CLI) | payer MEDICARE, BC ==
[2020-09-01 13:01] LABS: BASOPHILS % (AUTO) 0.6 %; EOSINOPHILS # (AUTO) 0.2 10^3/uL (0.0-0.7); EOSINOPHILS % (AUTO) 3.4 %; HGB - HEMOGLOBIN 9.8 g/dL (12.0-16.0); LYMPHOCYTES # (AUTO) 1.5 10^3/uL (1.5-3.5); LYMPHOCYTES % (AUTO) 22.7 %; MEAN CORPUSCULAR HEMOGLOBIN 32.5 pg (27.0-31.0); MEAN CORPUSCULAR HGB CONC 33.3 g/dL (32.0-36.0); MEAN CORPUSCULAR VOLUME 97.4 fL (81.0-99.0); MEAN PLATELET VOLUME 10.8 fL (7.9-10.8); MONOCYTES # (AUTO) 0.7 10^3/uL (0.0-1.0); MONOCYTES % (AUTO) 11.3 %; NEUTROPHILS # (AUTO) 3.9 10^3/uL (1.5-6.6); NEUTROPHILS % (AUTO) 61.5 %; PLT - PLATELET COUNT 224 10^3/uL (130-450); RED BLOOD COUNT 3.02 10^6/uL (4.20-5.40); RED CELL DISTRIBUTION WIDTH 14.1 % (12.0-15.0); WHITE BLOOD COUNT 6.4 x10^3/uL (4.8-10.8)
[2020-09-01 13:28] LABS: ALBUMIN 3.7 g/dL (3.2-5.5); ALKALINE PHOSPHATASE 71 IU/L (42-121); ALT ALANINE AMINOTRANSFERASE 15 IU/L (10-60); AST ASPARTATE AMINOTRANSFERASE 21 IU/L (10-42); BILIRUBIN,TOTAL 0.7 mg/dL (0.2-1.0); BUN - BLOOD UREA NITROGEN 37 mg/dL (6-20); CALCIUM 9.3 mg/dL (8.5-10.3); CARBON DIOXIDE - CO2 25 mmol/L (21-32); CHLORIDE 95 mmol/L (101-111); CREATININE 1.9 mg/dL (0.4-1.0); GLUCOSE 104 mg/dL (70-100); HDL CHOLESTEROL 33 mg/dL; SODIUM 136 mmol/L (135-145); TOTAL PROTEIN 7.5 g/dL (6.7-8.2); VLDL CHOLESTEROL 60 mg/dL
[2020-09-01 14:00] LABS: CHOL/HDL RATIO 8.1 (<4.4); CHOLESTEROL 266 mg/dL; LDL CHOLESTEROL,CALCULATED 173 mg/dL; LDL/HDL RATIO 5.2 (<4.4)
== END 2020-09-01 09:21 | disposition home or self-care (01) ==
LOC: LAB.WCP 09:20
PROVIDERS: ATTEND Family Medicine
DX: E11.9 Type 2 diabetes mellitus without complications (principal); R19.7 Diarrhea, unspecified
CPT/HCPCS: 36415; 80053; 80061; 81599; 82985; 83036; 83516; 83721; 84443; 85025; 86255

== ENCOUNTER 2020-09-27 08:00 | Outpatient (CLI) | payer MEDICARE, BC | END 2020-09-27 23:59 | disposition home or self-care (01) | LOC: LAB.WCP 08:00 | PROVIDERS: ATTEND Family Medicine | DX: Z79.01 Long term (current) use of anticoagulants (principal) ==

== ENCOUNTER 2020-11-15 11:30 | Outpatient (CLI) | payer MEDICARE, BC | END 2020-11-15 23:59 | disposition home or self-care (01) | LOC: LAB.R 11:30 | PROVIDERS: ATTEND Family Medicine | DX: D64.9 Anemia, unspecified (principal) | CPT/HCPCS: 82274 ==

== ENCOUNTER 2020-12-09 13:35 | Outpatient (CLI) | payer MEDICARE, BC | END 2020-12-09 13:36 | disposition home or self-care (01) | LOC: COV 13:35 | PROVIDERS: ATTEND Surgery | DX: Z01.812 Encounter for preprocedural laboratory examination (principal); D64.9 Anemia, unspecified; R19.5 Other fecal abnormalities; K21.9 Gastro-esophageal reflux disease without esophagitis; E11.9 Type 2 diabetes mellitus without complications; Z86.010 Personal history of colon polyps; Z20.822 Contact with and (suspected) exposure to COVID-19 ==

== ENCOUNTER 2020-12-13 09:39 | Day surgery (SDC) | payer MEDICARE, BC ==
[2020-12-13] MEDS ORDERED: LACTATED RINGERS 1,000 ML IV ONE ×3 (09:41→12:27)
[2020-12-13] MEDS ORDERED: PROPOFOL 200 MG/20 ML VIAL IVP ONE ×2 (09:45→11:52)
[2020-12-13] MEDS ORDERED: LIDOCAINE-MPF 2% 5 ML VIAL ONE (09:46)
[2020-12-13] MEDS ORDERED: LIDO GARGLE 30 ML BOTTLE ONE (09:52)
[2020-12-13] MEDS ORDERED: BENZOCAINE/TETRACAINE/BUTAMBEN 20 GM ONE (09:53)
--- NOTE | 2020-12-13 10:56 | ANESTHESIA ---
Pre-Anesthesia VS, & Labs - Diagnosis anemia, GERD, + FIT, hx polyps - Procedure EGD, colonoscopy Vital Signs: Temp Pulse Resp BP Pulse Ox 36.5 C 91 18 157/105 H 100 12/13/20 09:52 12/13/20 09:52 12/13/20 09:52 12/13/20 09:52 12/13/20 09:52 Height: 5 ft 4 in Weight (kg): 71 kg Body Mass Index: 26.9 BMI Classification: Overweight - NPO >8 hours - Is Patient ?: No - Lab Results Current Lab Results: Laboratory Tests 12/13/20 10:23: POC Whole Bld Glucose 123 H Home Medications and Allergies Home Medications: Ambulatory Orders Famotidine [Pepcid] 40 mg PO DAILY 12/13/20 Isosorbide Mononitrate [Isosorbide Mononitrate ER] 120 mg PO DAILY 12/13/20 Metoprolol Succinate [Toprol Xl] 25 mg PO DAILY 12/13/20 Pravastatin [Pravachol] 20 mg PO DAILY 12/13/20 Ferrous Gluconate 648 mg PO DAILY 07/22/17 Levothyroxine Sodium 100 mcg PO QDAC 07/22/17 Nitroglycerin [Nitrostat] 0.4 mg PO Q5MIN PRN 07/22/17 Triamcinolone 0.1% Cream [Kenalog 0.1% Cream] 1 applic TOP BID PRN 07/22/17 Warfarin [Coumadin] 2 mg PO QDWARFARIN MDD TU,TH,SAT,GAMEZ 07/22/17 hydrALAZINE [Apresoline] 20 mg PO TID 07/22/17 Warfarin Sodium [Coumadin] 4 mg PO QDWARFARIN MDD MON,WED,FRI 08/09/17 Gabapentin 200 mg PO QPM 05/05/20 Sertraline [Zoloft] 25 mg PO DAILY 05/05/20 Chlorthalidone 12.5 mg PO DAILY 05/06/20 Cyanocobalamin (Vitamin B-12) [Cyanocobalamin Injection] 1,000 mcg IM .QMONTH 05/06/20 Insulin Detemir [Levemir Flextouch] 27 units SQ DAILY 05/06/20 Isosorbide Mononitrate [Isosorbide Mononitrate ER] 120 mg PO DAILY 05/06/20 Losartan [Cozaar] 50 mg PO BID 05/06/20 Famotidine [Pepcid] 40 mg PO DAILY 12/13/20 Isosorbide Mononitrate [Isosorbide Mononitrate ER] 120 mg PO DAILY 12/13/20 Metoprolol Succinate [Toprol Xl] 25 mg PO DAILY 12/13/20 Pravastatin [Pravachol] 20 mg PO DAILY 12/13/20 Allergies/Adverse Reactions: Allergies Allergy/AdvReac Type Severity Reaction Status Date / Time amlodipine Allergy Unknown Verified 06/17/20 10:13 atorvastatin Allergy Unknown Verified 06/17/20 10:13 sitagliptin [From Januvia] Allergy Unknown Verified 06/17/20 10:13 albuterol AdvReac Unknown TREMMORS Verified 06/17/20 10:13 codeine AdvReac Unknown Nausea Verified 06/17/20 10:13 morphine AdvReac Unknown Nausea Verified 06/17/20 10:13 Sulfa (Sulfonamide AdvReac Unknown Nausea Verified 06/17/20 10:13 Antibiotics) ezetimibe [From Zetia] AdvReac Unknown Verified 06/17/20 10:13 rosuvastatin [From Crestor] AdvReac Unknown Verified 06/17/20 10:13 all codeine derivatives Allergy Unknown Uncoded 05/05/20 20:52 cardiac med starts with "Z" Allergy Unknown Uncoded 05/05/20 20:52 Anes History & Medical History - Anesthetic History Family history of Anesthesia Complications: Denies Family history of Malignant Hyperthermia: Denies - Medical History Cardiovascular: reports: Congestive heart failure, High cholesterol, Arrhythmia, Other Pulmonary: reports: Shortness of breath Gastrointestinal: reports: GI bleed, Chronic diarrhea Urinary: reports: Renal insuffiency Neuro: reports: None Musculoskeletal: reports: Osteoarthritis Endocrine/Autoimmune: reports: Type 2 diabetes, HyPOthyroidism Blood Disorders: reports: None Skin: reports: None Smoking Status: Never smoker - Surgical History General: reports: Cholecystectomy, Colonoscopy Cardiothoracic: reports: CABG Gynecologic: reports: 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, Mastectomy Orthopedic: reports: Hip replacement Exam General: Alert, Oriented x3, Cooperative Dental: WNL Mouth Openin Fingerbreadth Neck Mobility: Normal Mallampati classification: II Thyromental Distance: 4-6 cm Respiratory: Lungs clear Cardiovascular: Regular rate Abdomen: Normal bowel sounds Extremities: No clubbing Neurological: Normal gait Mental/Cognitive Status: Alert/Oriented X3 Cognitive Status: Within normal limits Plan Anesthesia Type: MAC, IV Regional Consent for Procedure(s) Verified and Reviewed: Yes Code Status: Attempt Resuscitation ASA classification: 3-Severe systemic disease Is this case an emergency?: No
[2020-12-13] MEDS ORDERED: BENZOCAINE/TETRACAINE/BUTAMBEN 20 GM TOP ONE (11:13)
[2020-12-13] MEDS ORDERED: GLYCOPYRROLATE 1 MG/5 ML VIAL ONE (11:43)
[2020-12-13] MEDS ORDERED: SODIUM CHLORIDE FLUSH 0.9% 10 ML SYRINGE ONE (11:47)
[2020-12-13] MEDS ORDERED: PHENYLEPHRINE 10 MG/ML VIAL ONE (11:47)
[2020-12-13 13:32] VITALS: BP 142/94
--- NOTE | 2020-12-13 13:33 | ANESTHESIA POST OP EVALUATION ---
Anesthesia Post Eval - Post Anesthesia Eval Vitals: Last Vital Signs Temp 36.4 C L 12/13/20 13:29 Pulse 95 12/13/20 13:29 Resp 16 12/13/20 13:29 BP 142/94 H 12/13/20 13:29 Pulse Ox 100 12/13/20 13:29 CV Function Including HR & BP: positive: Stable Pain Control: positive: Satisfactory Nausea & Vomiting: positive: Negative Mental Status: positive: Baseline Respiratory Status: Airway Patent Hydration Status: Satisfactory Anesthesia Complications: positive: None
== END 2020-12-13 09:40 | disposition home or self-care (01) ==
LOC: SDS 09:39
PROVIDERS: ATTEND Surgery
PROC: 0DBM8ZZ Excision of Descending Colon, Via Natural or Artificial Opening Endoscopic (ICD-10-PCS; 2020-12-13)
PROC: 0DB68ZZ Excision of Stomach, Via Natural or Artificial Opening Endoscopic (ICD-10-PCS; 2020-12-13)
PROC: 0DB78ZX Excision of Stomach, Pylorus, Via Natural or Artificial Opening Endoscopic, Diagnostic (ICD-10-PCS; 2020-12-13)
PROC: 0DBK8ZX Excision of Ascending Colon, Via Natural or Artificial Opening Endoscopic, Diagnostic (ICD-10-PCS; principal; 2020-12-13 11:00)
PROC: 0DBN8ZZ Excision of Sigmoid Colon, Via Natural or Artificial Opening Endoscopic (ICD-10-PCS; 2020-12-13 11:00)
DX: R19.5 Other fecal abnormalities (principal); D12.4 Benign neoplasm of descending colon; D12.2 Benign neoplasm of ascending colon; K57.30 Diverticulosis of large intestine without perforation or abscess without bleeding; K21.9 Gastro-esophageal reflux disease without esophagitis; K31.7 Polyp of stomach and duodenum; K29.50 Unspecified chronic gastritis without bleeding; D50.9 Iron deficiency anemia, unspecified; I25.10 Atherosclerotic heart disease of native coronary artery without angina pectoris; I25.5 Ischemic cardiomyopathy; I48.91 Unspecified atrial fibrillation; E11.22 Type 2 diabetes mellitus with diabetic chronic kidney disease; I12.9 Hypertensive chronic kidney disease with stage 1 through stage 4 chronic kidney disease, or unspecified chronic kidney disease; N18.4 Chronic kidney disease, stage 4 (severe); Z79.4 Long term (current) use of insulin; Z79.01 Long term (current) use of anticoagulants
CPT/HCPCS: 43239; 43251; 45380; 45385; A9270; J7120

== ENCOUNTER 2020-12-15 14:57 | Outpatient (CLI) | payer MEDICARE, BC ==
[2020-12-15 15:42] LABS: CALCIUM 9.1 mg/dL (8.5-10.3); CREATININE 1.8 mg/dL (0.4-1.0); PHOSPHORUS 3.7 mg/dL (2.5-4.6); POTASSIUM 3.7 mmol/L (3.5-5.0)
== END 2020-12-15 14:58 | disposition home or self-care (01) ==
LOC: LAB 14:57
PROVIDERS: ATTEND Internal Medicine Nephrology
DX: N05.9 Unspecified nephritic syndrome with unspecified morphologic changes (principal); I50.32 Chronic diastolic (congestive) heart failure; E83.30 Disorder of phosphorus metabolism, unspecified; N25.81 Secondary hyperparathyroidism of renal origin
CPT/HCPCS: 36415; 80048; 83880; 83970; 84100

== ENCOUNTER 2021-02-07 08:00 | Outpatient (CLI) | payer MEDICARE, BC ==
[2021-02-07 18:02] LABS: BASOPHILS % (AUTO) 0.5 %; EOSINOPHILS # (AUTO) 0.2 10^3/uL (0.0-0.7); EOSINOPHILS % (AUTO) 2.7 %; HCT - HEMATOCRIT 31.2 % (37.0-47.0); LYMPHOCYTES # (AUTO) 1.7 10^3/uL (1.5-3.5); MEAN CORPUSCULAR HEMOGLOBIN 30.7 pg (27.0-31.0); MEAN CORPUSCULAR HGB CONC 32.1 g/dL (32.0-36.0); MEAN CORPUSCULAR VOLUME 95.7 fL (81.0-99.0); MEAN PLATELET VOLUME 10.6 fL (7.9-10.8); MONOCYTES # (AUTO) 0.7 10^3/uL (0.0-1.0); MONOCYTES % (AUTO) 9.5 %; NEUTROPHILS # (AUTO) 5.1 10^3/uL (1.5-6.6); PLT - PLATELET COUNT 205 10^3/uL (130-450); RED BLOOD COUNT 3.26 10^6/uL (4.20-5.40); RED CELL DISTRIBUTION WIDTH 14.3 % (12.0-15.0); WHITE BLOOD COUNT 7.8 x10^3/uL (4.8-10.8)
[2021-02-07 18:29] LABS: CALCIUM 9.1 mg/dL (8.5-10.3); CREATININE 1.7 mg/dL (0.4-1.0)
[2021-02-07 18:30] LABS: ALBUMIN 4.1 g/dL (3.2-5.5); ALBUMIN/GLOBULIN RATIO 1.1 (1.0-2.2); BILIRUBIN,TOTAL 0.7 mg/dL (0.2-1.0); TOTAL PROTEIN 7.9 g/dL (6.7-8.2)
[2021-02-07 20:13] LABS: ESTIMATED AVERAGE GLUCOSE 137 mg/dL (70-100); HEMOGLOBIN A1c% 6.4 % (4.27-6.07)
== END 2021-02-07 23:59 | disposition home or self-care (01) ==
LOC: LAB.WCP 08:00
PROVIDERS: ATTEND Family Medicine
DX: R19.5 Other fecal abnormalities (principal); D64.9 Anemia, unspecified; E11.40 Type 2 diabetes mellitus with diabetic neuropathy, unspecified
CPT/HCPCS: 36415; 80053; 82728; 82985; 83036; 83540; 84466; 85025

== ENCOUNTER 2021-06-20 08:00 | Outpatient (CLI) | payer MEDICARE, BC ==
[2021-06-20 18:00] LABS: BASOPHILS % (AUTO) 0.5 %; EOSINOPHILS # (AUTO) 0.2 10^3/uL (0.0-0.7); EOSINOPHILS % (AUTO) 3.1 %; HCT - HEMATOCRIT 28.6 % (37.0-47.0); HGB - HEMOGLOBIN 9.2 g/dL (12.0-16.0); LYMPHOCYTES # (AUTO) 1.6 10^3/uL (1.5-3.5); LYMPHOCYTES % (AUTO) 19.9 %; MEAN CORPUSCULAR HEMOGLOBIN 31.5 pg (27.0-31.0); MEAN CORPUSCULAR HGB CONC 32.2 g/dL (32.0-36.0); MEAN CORPUSCULAR VOLUME 97.9 fL (81.0-99.0); MEAN PLATELET VOLUME 10.4 fL (7.9-10.8); MONOCYTES # (AUTO) 0.8 10^3/uL (0.0-1.0); MONOCYTES % (AUTO) 9.7 %; NEUTROPHILS # (AUTO) 5.2 10^3/uL (1.5-6.6); NEUTROPHILS % (AUTO) 66.5 %; PLT - PLATELET COUNT 232 10^3/uL (130-450); RED BLOOD COUNT 2.92 10^6/uL (4.20-5.40); RED CELL DISTRIBUTION WIDTH 14.8 % (12.0-15.0); WHITE BLOOD COUNT 7.8 x10^3/uL (4.8-10.8)
[2021-06-20 18:21] LABS: ALBUMIN 3.9 g/dL (3.2-5.5); BILIRUBIN,TOTAL 0.8 mg/dL (0.2-1.0); CALCIUM 9.2 mg/dL (8.5-10.3); CREATININE 2.4 mg/dL (0.4-1.0); POTASSIUM 4.1 mmol/L (3.5-5.0); TOTAL PROTEIN 7.7 g/dL (6.7-8.2)
== END 2021-06-20 23:59 | disposition home or self-care (01) ==
LOC: LAB.WCP 08:00
PROVIDERS: ATTEND Family Medicine
DX: K92.2 Gastrointestinal hemorrhage, unspecified (principal); D64.9 Anemia, unspecified
CPT/HCPCS: 36415; 80053; 83540; 84466; 85025

== ENCOUNTER 2021-07-25 08:00 | Outpatient (CLI) | payer MEDICARE, BC ==
[2021-07-25 18:21] LABS: BASOPHILS % (AUTO) 0.5 %; EOSINOPHILS # (AUTO) 0.2 10^3/uL (0.0-0.7); EOSINOPHILS % (AUTO) 2.5 %; HCT - HEMATOCRIT 30.9 % (37.0-47.0); HGB - HEMOGLOBIN 9.9 g/dL (12.0-16.0); LYMPHOCYTES # (AUTO) 1.6 10^3/uL (1.5-3.5); LYMPHOCYTES % (AUTO) 18.9 %; MEAN CORPUSCULAR HEMOGLOBIN 31.6 pg (27.0-31.0); MEAN CORPUSCULAR VOLUME 98.7 fL (81.0-99.0); MEAN PLATELET VOLUME 10.4 fL (7.9-10.8); MONOCYTES # (AUTO) 0.7 10^3/uL (0.0-1.0); MONOCYTES % (AUTO) 8.1 %; NEUTROPHILS % (AUTO) 69.5 %; PLT - PLATELET COUNT 217 10^3/uL (130-450); RED BLOOD COUNT 3.13 10^6/uL (4.20-5.40); RED CELL DISTRIBUTION WIDTH 14.6 % (12.0-15.0); WHITE BLOOD COUNT 8.6 x10^3/uL (4.8-10.8)
[2021-07-25 18:56] LABS: ALBUMIN 3.9 g/dL (3.2-5.5); ALBUMIN/GLOBULIN RATIO 1.1 (1.0-2.2); BILIRUBIN,TOTAL 0.6 mg/dL (0.2-1.0); CALCIUM 9.4 mg/dL (8.5-10.3); CREATININE 1.9 mg/dL (0.4-1.0); TOTAL PROTEIN 7.4 g/dL (6.7-8.2)
[2021-07-25 19:08] LABS: THYROID STIMULATING HORMONE 0.31 uIU/mL (0.34-5.60)
[2021-07-25 19:14] LABS: FERRITIN 393.1 ng/mL (11.0-306.8)
[2021-07-25 19:37] LABS: FREE T4 (FREE THYROXINE) 1.24 ng/dL (0.58-1.64)
== END 2021-07-25 23:59 | disposition home or self-care (01) ==
LOC: LAB.WCP 08:00
PROVIDERS: ATTEND Family Medicine
DX: D64.9 Anemia, unspecified (principal); K92.2 Gastrointestinal hemorrhage, unspecified; E03.9 Hypothyroidism, unspecified
CPT/HCPCS: 36415; 80053; 82728; 84439; 84443; 85025

== ENCOUNTER 2021-09-29 07:37 | Day surgery (SDC) | payer MEDICARE, BC ==
[2021-09-29] MEDS ORDERED: PROPOFOL 500 MG/50 ML 0 MG/0 ML VIAL ONE (07:40)
[2021-09-29] MEDS ORDERED: LACTATED RINGERS 1,000 ML IV ONE ×2 (07:40→09:43)
--- NOTE | 2021-09-29 08:12 | ANESTHESIA ---
Pre-Anesthesia VS, & Labs - Diagnosis hx polyps - Procedure colonoscopy Vital Signs: Temp Pulse Resp BP Pulse Ox 36.9 C 101 H 22 156/87 H 99 09/29/21 07:41 09/29/21 07:41 09/29/21 07:41 09/29/21 07:41 09/29/21 07:41 Height: 5 ft 4 in - NPO >8 hours - Is Patient ?: No - Lab Results Lab results reviewed: Yes Home Medications and Allergies Home Medications: Ambulatory Orders Magnesium Oxide [Mag-Oxide] 400 mg PO DAILY 09/19/21 Ferrous Gluconate 648 mg PO DAILY 07/22/17 Levothyroxine Sodium 100 mcg PO QDAC 07/22/17 Nitroglycerin [Nitrostat] 0.4 mg PO Q5MIN PRN 07/22/17 hydrALAZINE [Apresoline] 10 mg PO TID 07/22/17 Gabapentin 100 mg PO QPM 05/05/20 Sertraline [Zoloft] 25 mg PO DAILY 05/05/20 Cyanocobalamin (Vitamin B-12) [Cyanocobalamin Injection] 1,000 mcg IM .QMONTH 05/06/20 Insulin Detemir [Levemir Flextouch] 27 units SQ DAILY 05/06/20 Isosorbide Mononitrate [Isosorbide Mononitrate ER] 120 mg PO DAILY 05/06/20 Losartan [Cozaar] 50 mg PO BID 05/06/20 Famotidine [Pepcid] 40 mg PO DAILY 12/13/20 Metoprolol Succinate [Toprol Xl] 25 mg PO DAILY 12/13/20 Pravastatin [Pravachol] 20 mg PO DAILY 12/13/20 Cholecalciferol (Vitamin D3) [Vitamin D3] 1 tab PO DAILY 07/06/21 Loperamide [Imodium] 1 tab PO DAILY PRN 07/06/21 Torsemide 3 tab PO DAILY 07/06/21 flaxseed oiL [Flaxseed Oil] 2 cap PO DAILY 07/06/21 Magnesium Oxide [Mag-Oxide] 400 mg PO DAILY 09/19/21 Allergies/Adverse Reactions: Allergies Allergy/AdvReac Type Severity Reaction Status Date / Time amlodipine Allergy Unknown Verified 07/06/21 13:35 atorvastatin Allergy Unknown Verified 07/06/21 13:35 sitagliptin [From Januvia] Allergy Unknown Verified 07/06/21 13:35 albuterol AdvReac Unknown TREMMORS Verified 07/06/21 13:35 codeine AdvReac Unknown Nausea Verified 07/06/21 13:35 morphine AdvReac Unknown Nausea Verified 07/06/21 13:35 Sulfa (Sulfonamide AdvReac Unknown Nausea Verified 07/06/21 13:35 Antibiotics) ezetimibe [From Zetia] AdvReac Unknown Verified 07/06/21 13:35 rosuvastatin [From Crestor] AdvReac Unknown Verified 07/06/21 13:35 all codeine derivatives Allergy Unknown Uncoded 07/06/21 13:35 cardiac med starts with "Z" Allergy Unknown Uncoded 07/06/21 13:35 Anes History & Medical History - Medical History Cardiovascular: reports: Hypertension, High cholesterol, Coronary artery disease Pulmonary: reports: None Gastrointestinal: reports: GERD, Colon polyps, Chronic diarrhea, Chronic constipation Urinary: reports: Retention, Incontinence Neuro: reports: None Musculoskeletal: reports: Osteoarthritis Endocrine/Autoimmune: reports: Type 2 diabetes, HyPOthyroidism Blood Disorders: reports: None Skin: reports: None Smoking Status: Never smoker - Surgical History General: reports: Cholecystectomy, Appendectomy, Colonoscopy, EGD Eyes Ears Nose Throat (EENT): reports: Cataracts Cardiothoracic: reports: CABG, Coronary stent Gynecologic: reports: 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, Oophrectomy, Mastectomy Orthopedic: reports: Hip replacement Exam General: Alert, Oriented x3, Cooperative Dental: WNL Mouth Openin Fingerbreadth Neck Mobility: Normal Mallampati classification: II Thyromental Distance: 4-6 cm Respiratory: Lungs clear, Normal breath sounds, No respiratory distress Cardiovascular: Other (AF) Neurological: Normal speech Mental/Cognitive Status: Alert/Oriented X3, Normal for patient Cognitive Status: Within normal limits Plan Anesthesia Type: Total IV Consent for Procedure(s) Verified and Reviewed: Yes Code Status: Attempt Resuscitation ASA classification: 3-Severe systemic disease Is this case an emergency?: No
--- NOTE | 2021-09-29 08:33 | HISTORY & PHYSICAL EXAMINATION ---
Chief Complaint - Chief Complaint Chief Complaint: anemia and history large colon polyps possible incompletely removed History - Past Medical History Cardiovascular: reports: None (10 pt ros as above otherwise unremarkable), Hypertension, High cholesterol, Coronary artery disease Respiratory: reports: None Neuro: reports: None Endocrine/Autoimmune: reports: Type 2 diabetes, HyPOthyroidism GI: reports: GERD, Colon polyps, Chronic diarrhea, Chronic constipation GROOVER RUNNER: reports: None, Breast cancer : reports: Retention, Incontinence HEENT: reports: Chronic hearing loss Psych: reports: Depression Musculoskeletal: reports: Osteoarthritis Derm: reports: None MRSA Hx?: No - Past Surgical History General: reports: Cholecystectomy, Appendectomy, Colonoscopy, EGD Ortho: reports: Hip replacement /GROOVER RUNNER: reports: 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, Oophrectomy, Mastectomy Cardiovascular: reports: CABG, Coronary stent HEENT: reports: Cataracts - Family & Social History Family History: Mother: Cancer, Father: [place] Social History Notes: He does not use tobacco products or recreational substances. She rarely drinks alcohol. - Substance History Use: Uses substance without health or social issues: NONE - POLST Patient has POLST: No POLST Status: DNR Meds/Allgy - Home Medications Home Medications: Ambulatory Orders Medication Instructions Recorded Confirmed Ferrous Gluconate 648 mg PO DAILY 07/22/17 09/19/21 Levothyroxine Sodium 100 mcg PO QDAC 07/22/17 09/19/21 Nitroglycerin [Nitrostat] 0.4 mg PO Q5MIN PRN 07/22/17 09/19/21 hydrALAZINE [Apresoline] 10 mg PO TID 07/22/17 09/19/21 Gabapentin 100 mg PO QPM 05/05/20 09/19/21 Sertraline [Zoloft] 25 mg PO DAILY 05/05/20 09/19/21 Cyanocobalamin (Vitamin B-12) 1,000 mcg IM .QMONTH 05/06/20 09/19/21 [Cyanocobalamin Injection] Insulin Detemir [Levemir Flextouch] 27 units SQ DAILY 05/06/20 09/19/21 Isosorbide Mononitrate [Isosorbide 120 mg PO DAILY 05/06/20 09/19/21 Mononitrate ER] Losartan [Cozaar] 50 mg PO BID 05/06/20 09/19/21 Famotidine [Pepcid] 40 mg PO DAILY 12/13/20 09/19/21 Metoprolol Succinate [Toprol Xl] 25 mg PO DAILY 12/13/20 09/19/21 Pravastatin [Pravachol] 20 mg PO DAILY 12/13/20 09/19/21 Cholecalciferol (Vitamin D3) 1 tab PO DAILY 07/06/21 09/19/21 [Vitamin D3] Loperamide [Imodium] 1 tab PO DAILY PRN 07/06/21 09/19/21 Torsemide 3 tab PO DAILY 07/06/21 09/19/21 flaxseed oiL [Flaxseed Oil] 2 cap PO DAILY 07/06/21 09/19/21 Magnesium Oxide [Mag-Oxide] 400 mg PO DAILY 09/19/21 09/19/21 - Allergies Allergies/Adverse Reactions: Allergies Allergy/AdvReac Type Severity Reaction Status Date / Time amlodipine Allergy Unknown Verified 07/06/21 13:35 atorvastatin Allergy Unknown Verified 07/06/21 13:35 sitagliptin [From Januvia] Allergy Unknown Verified 07/06/21 13:35 albuterol AdvReac Unknown TREMMORS Verified 07/06/21 13:35 codeine AdvReac Unknown Nausea Verified 07/06/21 13:35 morphine AdvReac Unknown Nausea Verified 07/06/21 13:35 Sulfa (Sulfonamide AdvReac Unknown Nausea Verified 07/06/21 13:35 Antibiotics) ezetimibe [From Zetia] AdvReac Unknown Verified 07/06/21 13:35 rosuvastatin [From Crestor] AdvReac Unknown Verified 07/06/21 13:35 all codeine derivatives Allergy Unknown Uncoded 07/06/21 13:35 cardiac med starts with "Z" Allergy Unknown Uncoded 07/06/21 13:35 Exam - Vital Signs Reviewed Vital Signs: Yes Vital Signs: Vital Signs x48h Temp Pulse Resp BP Pulse Ox 09/29/21 07:41 36.9 C 101 H 22 156/87 H 99 - Physical Exam General Appearance: positive: Alert Eyes Bilateral: positive: PERRL, EOMI Neck: positive: No JVD Respiratory: positive: No respiratory distress, Breath sounds nml Cardiovascular: positive: Irregularly irregular Abdomen: positive: Non-tender, No distention Neurologic/Psychiatric: positive: Oriented x3 Conclusion/Plan - Problem List (1) Adenomatous colon polyp Conclusion/Plan: plan colonoscopy. parq held and consent obtained
[2021-09-29] MEDS ORDERED: PROPOFOL 200 MG/20 ML VIAL IVP ONE (09:01)
--- NOTE | 2021-09-29 10:12 | ANESTHESIA POST OP EVALUATION ---
Anesthesia Post Eval - Post Anesthesia Eval Vitals: Last Vital Signs Temp 37.2 C 09/29/21 09:35 Pulse 94 09/29/21 10:02 Resp 17 09/29/21 10:02 BP 163/89 H 09/29/21 10:02 Pulse Ox 98 09/29/21 10:02 CV Function Including HR & BP: Stable Pain Control: Satisfactory Nausea & Vomiting: Negative Mental Status: Baseline Respiratory Status: Airway Patent Hydration Status: Satisfactory Anesthesia Complications: None
[2021-09-29 10:17] VITALS: BP 1263/91
== END 2021-09-29 07:38 | disposition home or self-care (01) ==
LOC: SDS 07:37
PROVIDERS: ATTEND Surgery
PROC: 0DBF8ZZ Excision of Right Large Intestine, Via Natural or Artificial Opening Endoscopic (ICD-10-PCS; 2021-09-29)
PROC: 0DBM8ZZ Excision of Descending Colon, Via Natural or Artificial Opening Endoscopic (ICD-10-PCS; 2021-09-29)
PROC: 0DBL8ZZ Excision of Transverse Colon, Via Natural or Artificial Opening Endoscopic (ICD-10-PCS; 2021-09-29)
PROC: 0DBK8ZZ Excision of Ascending Colon, Via Natural or Artificial Opening Endoscopic (ICD-10-PCS; principal; 2021-09-29 08:30)
DX: D12.2 Benign neoplasm of ascending colon (principal); D12.3 Benign neoplasm of transverse colon; D12.4 Benign neoplasm of descending colon; I25.10 Atherosclerotic heart disease of native coronary artery without angina pectoris; D64.9 Anemia, unspecified; K59.09 Other constipation; R19.7 Diarrhea, unspecified
CPT/HCPCS: 45380; 45385; J7120

== ENCOUNTER 2021-10-17 13:50 | Outpatient (CLI) | payer MEDICARE, BC ==
--- NOTE | 2021-10-17 17:10 | XRAY Report ---
PROCEDURE: Foot 3 View RT INDICATIONS: R FOOT PX TECHNIQUE: 3 views of the foot were acquired. COMPARISON: None. FINDINGS: Bones: There is generalized osteopenia. A suspected linear lucency is seen at the base of the fifth m etatarsal that is suspicious for a nondisplaced fracture. No suspicious bony lesions. Degenerative ch anges are seen throughout the tarsometatarsal joints and scattered within the interphalangeal joints of toes. A calcaneal enthesophyte is present along the plantar aspect. Soft tissues: Arterial vascular calcifications are present. There is mild soft tissue edema IMPRESSION: Suspected nondisplaced fracture of the base of the fifth metatarsal. Recommend correlation for point tenderness. Reviewed by: Tesfaye Goldsmith MD on 10/17/2021 5:09 PM [facility] Approved by: Tesfaye Goldsmith MD on 10/17/2021 5:09 PM [facility] Station ID: [id number]
--- NOTE | 2021-10-18 07:46 | XRAY Report ---
PROCEDURE: Cervical Spine 2 View INDICATIONS: DEGENERATIVE DISC DISEASE, C-SPINE TECHNIQUE: 3 view(s) of the cervical spine were acquired. COMPARISON: CT cervical spine dated 04/07/2020 FINDINGS: Bones: No fractures or dislocations to the T1 level. The lateral masses of C1 appear intact on the odontoid view. No suspicious bony lesions. Severe cervical spondylosis. Multilevel disc height loss and uncovertebral joint osteophytes and anterior osteophytes. Multilevel cervical facet hypertrophy. Soft tissues: No prevertebral soft tissue swelling. IMPRESSION: Severe cervical spondylosis. No evidence acute bony abnormality of the cervical spine. If clinical suspicion and/or symptoms persist, further assessment with repeat plain films or advanced imaging (e.g., CT, MRI, or bone scan) may be helpful for further assessment. Reviewed by: John Robledo MD on 10/18/2021 7:45 AM PST Approved by: John Robledo MD on 10/18/2021 7:45 AM PST Station ID: [id number]
== END 2021-10-17 13:51 | disposition home or self-care (01) ==
LOC: DI.N 13:50
PROVIDERS: ATTEND Family Medicine
DX: M50.30 Other cervical disc degeneration, unspecified cervical region (principal); M79.671 Pain in right foot; M47.812 Spondylosis without myelopathy or radiculopathy, cervical region; R93.6 Abnormal findings on diagnostic imaging of limbs

== ENCOUNTER 2021-10-24 13:20 | Outpatient (CLI) | payer MEDICARE, BC ==
--- NOTE | 2021-10-24 14:35 | XRAY Report ---
PROCEDURE: Foot 3 View RT INDICATIONS: RIGHT FOOT PAIN TECHNIQUE: 3 views of the foot were acquired. COMPARISON: October 17, 2021. FINDINGS: BONES: Faint linear density at the base of the fifth metatarsal, which may reflect a minimally displa merlene fracture versus Mach effect. No adjacent callus remission is appreciated. Diffuse osteopenia. Degenerative changes of the midfoot with joint space narrowing. The remaining vis ualized osseous structures appear maintained. Small calcaneal enthesophytes. SOFT TISSUES: No focal abnormality. Diffuse vascular calcifications. IMPRESSION: 1.Faint linear density at the base of the fifth metatarsal as detailed above. Consider correlation wi th point tenderness. Magnetic resonance imaging may be helpful for further evaluation as clinically w arranted. Reviewed by: Krishna Wagner MD on 10/24/2021 2:33 PM [facility] Approved by: Krishna Wagner MD on 10/24/2021 2:33 PM [facility] Station ID: [id number]
== END 2021-10-24 13:21 | disposition home or self-care (01) ==
LOC: DI.WOS 13:20
PROVIDERS: ATTEND Physician Assistant
DX: S92.354A Nondisplaced fracture of fifth metatarsal bone, right foot, initial encounter for closed fracture (principal); R93.6 Abnormal findings on diagnostic imaging of limbs

== ENCOUNTER 2022-01-16 15:37 | Outpatient (CLI) | payer MEDICARE, BC ==
[2022-01-16] MEDS ORDERED: IOVERSOL 320 50 ML VIAL ONE (16:00)
[2022-01-16 16:05] LABS: BASOPHILS % (AUTO) 0.3 %; EOSINOPHILS # (AUTO) 0.3 10^3/uL (0.0-0.7); EOSINOPHILS % (AUTO) 2.9 %; LYMPHOCYTES % (AUTO) 21.5 %; MEAN CORPUSCULAR HEMOGLOBIN 32.6 pg (27.0-31.0); MEAN CORPUSCULAR HGB CONC 34.5 g/dL (32.0-36.0); MEAN CORPUSCULAR VOLUME 94.5 fL (81.0-99.0); MEAN PLATELET VOLUME 9.5 fL (7.9-10.8); MONOCYTES # (AUTO) 0.8 10^3/uL (0.0-1.0); MONOCYTES % (AUTO) 8.6 %; NEUTROPHILS # (AUTO) 6.1 10^3/uL (1.5-6.6); NEUTROPHILS % (AUTO) 66.4 %; PLT - PLATELET COUNT 198 10^3/uL (130-450); RED BLOOD COUNT 3.07 10^6/uL (4.20-5.40); RED CELL DISTRIBUTION WIDTH 13.5 % (12.0-15.0); WHITE BLOOD COUNT 9.2 x10^3/uL (4.8-10.8)
[2022-01-16 16:22] LABS: ALBUMIN 3.6 g/dL (3.2-5.5); ALBUMIN/GLOBULIN RATIO 0.9 (1.0-2.2); BILIRUBIN,TOTAL 0.4 mg/dL (0.2-1.0); CALCIUM 8.8 mg/dL (8.5-10.3); CREATININE 1.7 mg/dL (0.4-1.0); POTASSIUM 3.8 mmol/L (3.5-5.0); TOTAL PROTEIN 7.6 g/dL (6.7-8.2)
[2022-01-16] MEDS: IOVERSOL 320 50 ML VIAL PO ONE (17:19)
--- NOTE | 2022-01-16 17:29 | CT Report ---
PROCEDURE: Abdomen/Pelvis WO INDICATIONS: ABD PAIN, CHRONIC KIDNEY DISEASE TECHNIQUE: Noncontrast 5 mm thick sections acquired from the diaphragms to the symphysis. 5 mm coronal and sagi ttal reformats were then performed. For radiation dose reduction, the following was used: automated exposure control, adjustment of mA and/or kV according to patient size. COMPARISON: None. FINDINGS: Image quality: There is limited visualization of the pelvis secondary to artifact from hip arthropla sty. ABDOMEN: Lung bases: Lung bases are clear. Heart size is enlarged. Solid organs: Liver and spleen are normal in size. Pancreas is normal in contours. No adrenal nodu les. Kidneys are atrophic bilaterally and size, without hydronephrosis or nephrolithiasis. Peritoneum and bowel: Unenhanced bowel loops are nonobstructive. There is a thickened appearance of the sigmoid colon with colonic diverticula. No appreciable pericolonic stranding. There is a mild mukesh earance of thickening versus incomplete distention in the cecum and descending proximal colon. No andreia e fluid or air. Nodes and vessels: No retroperitoneal or mesenteric adenopathy by size criteria. Aorta and inferior vena cava are normal in caliber. Significant vascular calcifications are present. Miscellaneous: Fat-containing ventral hernia is present. Large hiatal hernia. PELVIS: Genitourinary: Bladder wall thickness is normal. Miscellaneous: No inguinal hernias or adenopathy. Bones: No suspicious bony lesions. No vertebral body compression fractures. IMPRESSION: 1. Thickened appearance of the sigmoid colon with diverticula. While this could represent a very saad y appearance of colitis secondary to diverticulitis, given lack of pericolonic stranding, underlying mass cannot be excluded. Recommend correlation patient's symptoms and appropriate short interval imag ing follow-up to document resolution or further investigation of potential mass. There is no obstruct ion. Mildly thickened appearance of the cecum and descending colon suspected to be related to incomplete d istention. The above findings were discussed with Dr. Peyton Gee on 01/16/2022 at 5:26 PM. Reviewed by: Pema Kemp MD on 01/16/2022 5:27 PM PDT Approved by: Pema Kemp MD on 01/16/2022 5:27 PM PDT Station ID: [id number]
[2022-01-16 21:15] LABS: ESTIMATED AVERAGE GLUCOSE 134 mg/dL (70-100); HEMOGLOBIN A1c% 6.3 % (4.27-6.07)
== END 2022-01-16 15:38 | disposition home or self-care (01) ==
LOC: DI 15:37
PROVIDERS: ATTEND Family Medicine
DX: R10.32 Left lower quadrant pain (principal); N18.4 Chronic kidney disease, stage 4 (severe); E11.40 Type 2 diabetes mellitus with diabetic neuropathy, unspecified; R93.3 Abnormal findings on diagnostic imaging of other parts of digestive tract
CPT/HCPCS: 36415; 80053; 83036; 83690; 85025

== ENCOUNTER 2022-06-19 08:00 | Outpatient (CLI) | payer MEDICARE, BC ==
[2022-06-19 19:47] LABS: CALCIUM 8.8 mg/dL (8.5-10.3); CREATININE 1.9 mg/dL (0.4-1.0); POTASSIUM 4.4 mmol/L (3.5-5.0)
[2022-06-19 20:04] LABS: THYROID STIMULATING HORMONE 0.44 uIU/mL (0.34-5.60)
[2022-06-19 20:20] LABS: ESTIMATED AVERAGE GLUCOSE 123 mg/dL (70-100); HEMOGLOBIN A1c% 5.9 % (4.27-6.07)
== END 2022-06-19 23:59 | disposition home or self-care (01) ==
LOC: LAB.R 08:00
PROVIDERS: ATTEND Internal Medicine
DX: K52.9 Noninfective gastroenteritis and colitis, unspecified (principal); E11.22 Type 2 diabetes mellitus with diabetic chronic kidney disease; N18.9 Chronic kidney disease, unspecified; G62.9 Polyneuropathy, unspecified; Z79.899 Other long term (current) drug therapy
CPT/HCPCS: 80048; 82607; 83036; 84443

== ENCOUNTER 2022-07-16 17:20 | Emergency (ER) | payer MEDICARE, BC ==
--- NOTE | 2022-07-16 18:01 | ED Physician Documentation ---
History of Present Illness - Stated complaint Stated Complaint: FEVER/FEET PX - Chief complaint Chief Complaint: Neuro - History obtained from History obtained from: Patient - Additonal information Additional information: 87-year-old woman with history of diabetes presents accompanied by her daughter from an assisted living facility with increased over baseline left lower extremity pain. She has a history of neuropathy which is always painful but over the last few days has had excruciating pain in the left leg, she thinks the left ankle such that she cannot walk or bear weight now. There was no injury. She was noted to have a fever of 101.1 at the assisted living facility today and subsequently had a COVID test which was negative. Review of Systems Ten Systems: 10 systems reviewed and negative Constitutional: reports: Fever. 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, Breast cancer : Retention, Incontinence HEENT: Chronic hearing loss Psych: Depression Musculoskeletal: Osteoarthritis Derm: None - Past Surgical History Past Surgical History: Yes General: Cholecystectomy, Appendectomy, Colonoscopy, EGD Ortho: Hip replacement /CLASS C TRUCK DRIVER: 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, Oophrectomy, Mastectomy Cardiovascular: CABG, Coronary stent HEENT: Cataracts - Present Medications Home Medications: Ambulatory Orders Medication Instructions Recorded Confirmed Ferrous Gluconate 648 mg PO DAILY 07/22/17 09/29/21 Levothyroxine Sodium 100 mcg PO QDAC 07/22/17 09/29/21 Nitroglycerin [Nitrostat] 0.4 mg PO Q5MIN PRN 07/22/17 09/19/21 hydrALAZINE [Apresoline] 10 mg PO TID 07/22/17 09/29/21 Gabapentin 100 mg PO QPM 05/05/20 09/29/21 Sertraline [Zoloft] 25 mg PO DAILY 05/05/20 09/29/21 Cyanocobalamin (Vitamin B-12) 1,000 mcg IM .QMONTH 05/06/20 09/29/21 [Cyanocobalamin Injection] Insulin Detemir [Levemir Flextouch] 27 units SQ DAILY 05/06/20 09/29/21 Isosorbide Mononitrate [Isosorbide 120 mg PO DAILY 05/06/20 09/29/21 Mononitrate ER] Losartan [Cozaar] 50 mg PO BID 05/06/20 09/29/21 Famotidine [Pepcid] 40 mg PO DAILY 12/13/20 09/29/21 Metoprolol Succinate [Toprol Xl] 25 mg PO DAILY 12/13/20 09/29/21 Pravastatin [Pravachol] 20 mg PO DAILY 12/13/20 09/29/21 Cholecalciferol (Vitamin D3) 1 tab PO DAILY 07/06/21 09/29/21 [Vitamin D3] Loperamide [Imodium] 1 tab PO DAILY PRN 07/06/21 09/19/21 Torsemide 3 tab PO DAILY 07/06/21 09/29/21 flaxseed oiL [Flaxseed Oil] 2 cap PO DAILY 07/06/21 09/29/21 Magnesium Oxide [Mag-Oxide] 400 mg PO DAILY 09/19/21 09/29/21 Amox/Clav 875/125 [Augmentin] 1 each PO Q12H #20 tablet 07/16/22 - Allergies Allergies/Adverse Reactions: Allergies Allergy/AdvReac Type Severity Reaction Status Date / Time amlodipine Allergy Unknown Verified 07/06/21 13:35 atorvastatin Allergy Unknown Verified 07/06/21 13:35 sitagliptin [From Januvia] Allergy Unknown Verified 07/06/21 13:35 albuterol AdvReac Unknown TREMMORS Verified 07/06/21 13:35 codeine AdvReac Unknown Nausea Verified 07/06/21 13:35 morphine AdvReac Unknown Nausea Verified 07/06/21 13:35 Sulfa (Sulfonamide AdvReac Unknown Nausea Verified 07/06/21 13:35 Antibiotics) ezetimibe [From Zetia] AdvReac Unknown Verified 07/06/21 13:35 rosuvastatin [From Crestor] AdvReac Unknown Verified 07/06/21 13:35 all codeine derivatives Allergy Unknown Uncoded 07/06/21 13:35 cardiac med starts with "Z" Allergy Unknown Uncoded 07/06/21 13:35 - Social History Does the pt smoke?: No Smoking Status: Never smoker Does the pt drink ETOH?: No Does the pt have substance abuse?: No - Immunizations Immunizations are current?: Yes - POLST Patient has POLST: No POLST Status: DNR PD ED PE NORMAL - Vitals Vital signs reviewed: Yes - General General: Alert and oriented X 3, No acute distress - HEENT HEENT: PERRL, EOMI - Neck Neck: Supple, no meningeal sign, No bony TTP - Cardiac Cardiac: RRR, No murmur - Respiratory Respiratory: No respiratory distress, Clear bilaterally - Abdomen Abdomen: Non tender - Back Back: No CVA TTP, No spinal TTP - Derm Derm: Normal color, Warm and dry - Extremities Extremities: No edema, Other (The left ankle is modestly swollen and warm, not cellulitic though. She has significant pain with range of motion of the left ankle.) - Neuro Neuro: Alert and oriented X 3, Normal speech Results - Vitals Vitals: Vital Signs - 24 hr 07/16/22 07/16/22 17:37 18:23 Temperature 37.2 C Heart Rate 89 79 Respiratory 19 18 Rate Blood Pressure 126/48 L 126/54 L O2 Saturation 96 97 Oxygen O2 Source Room air - Labs Labs: Laboratory Tests 07/16/22 07/16/22 07/16/22 18:07 18:07 18:07 WBC 11.6 H RBC 2.33 L Hgb 7.2 L Hct 22.0 L MCV 94.4 MCH 30.9 MCHC 32.7 RDW 13.7 Plt Count 174 MPV 10.0 Neut # (Auto) 8.8 H Lymph # (Auto) 1.2 L [place] # (Auto) 1.4 H Eos # (Auto) 0.1 Baso # (Auto) 0.0 Absolute Nucleated RBC 0.00 Nucleated RBC % 0.0 ESR > 140 H Sodium 134 L Potassium 4.3 Chloride 99 L Carbon Dioxide 25 Anion Gap 10.0 BUN 42 H Creatinine 1.7 H Estimated GFR (MDRD) 28 L Glucose 174 H Lactic Acid Calcium 8.5 C-Reactive Protein 6.3 H 07/16/22 18:07 WBC RBC Hgb Hct MCV MCH MCHC RDW Plt Count MPV Neut # (Auto) Lymph # (Auto) [place] # (Auto) Eos # (Auto) Baso # (Auto) Absolute Nucleated RBC Nucleated RBC % ESR Sodium Potassium Chloride Carbon Dioxide Anion Gap BUN Creatinine Estimated GFR (MDRD) Glucose Lactic Acid 0.8 Calcium C-Reactive Protein Procedures - Arthrocentesis Joint: Ankle, Left Preparation: Consent obtained, Sterile prep and drape Anesthesia: Lidocaine 1% Aftercare: Dressing applied PD MEDICAL DECISION MAKING - ED course ED course: 87-year-old woman presents for fever although not corroborated here with left ankle pain. She has mildly elevated white count and very elevated ESR and mildly elevated CRP. No symptoms to suggest an alternative source of fever such as urinary complaints or respiratory symptoms. As such a left ankle arthrocentesis was attempted and I was able to access the joint but there was no effusion aspirated. Discussed with the patient and the daughter that this makes a septic joint much less likely, that said it is "hard to prove a negative." As such we will plan for a scheduled recheck tomorrow for reevaluation given her advanced age and abnormal labs. Departure - Departure Disposition: 01 Home, Self Care Clinical Impression: Ankle pain, left Qualifiers: Chronicity: acute Qualified Code(s): M25.572 - Pain in left ankle and joints of left foot Fever Qualifiers: Encounter type: initial encounter Condition: Good Record reviewed to determine appropriate education?: Yes Instructions: ED Fever Unconf Cause Prescriptions: Amox/Clav 875/125 [Augmentin] 1 each PO Q12H #20 tablet Comments: You are seen today for fever, also left ankle pain. We noted you to have a mildly elevated white count and your other inflammatory markers were elevated as well. We did an arthrocentesis of the left ankle to see if there was fluid there, but no fluid was able to be obtained from the joint. As such a joint infection is less likely and you do not have any other symptoms to suggest a source of your fever such as urinary complaints or respiratory complaints. Given your age and your abnormal labs I am starting you on antibiotics and I would like to see you tomorrow afternoon for recheck unless you are doing well with no persistent fevers and pain is minimal. Return sooner if worsening.
[2022-07-16 18:17] LABS: BASOPHILS % (AUTO) 0.3 %; EOSINOPHILS # (AUTO) 0.1 10^3/uL (0.0-0.7); HGB - HEMOGLOBIN 7.2 g/dL (12.0-16.0); LYMPHOCYTES # (AUTO) 1.2 10^3/uL (1.5-3.5); LYMPHOCYTES % (AUTO) 10.1 %; MEAN CORPUSCULAR HEMOGLOBIN 30.9 pg (27.0-31.0); MEAN CORPUSCULAR HGB CONC 32.7 g/dL (32.0-36.0); MEAN CORPUSCULAR VOLUME 94.4 fL (81.0-99.0); MONOCYTES # (AUTO) 1.4 10^3/uL (0.0-1.0); MONOCYTES % (AUTO) 12.1 %; NEUTROPHILS # (AUTO) 8.8 10^3/uL (1.5-6.6); NEUTROPHILS % (AUTO) 76.2 %; PLT - PLATELET COUNT 174 10^3/uL (130-450); RED BLOOD COUNT 2.33 10^6/uL (4.20-5.40); RED CELL DISTRIBUTION WIDTH 13.7 % (12.0-15.0); WHITE BLOOD COUNT 11.6 x10^3/uL (4.8-10.8)
[2022-07-16 18:35] LABS: CALCIUM 8.5 mg/dL (8.5-10.3); CREATININE 1.7 mg/dL (0.4-1.0); CRP - C-REACTIVE PROTEIN 6.3 mg/dL (0-1.0); POTASSIUM 4.3 mmol/L (3.5-5.0)
--- NOTE | 2022-07-16 18:46 | XRAY Report ---
PROCEDURE: Ankle 3 View LT INDICATIONS: Left ankle pain TECHNIQUE: 3 views of the ankle were acquired. COMPARISON: None FINDINGS: Bones: No fractures or dislocations. Osteoarthritic changes are noted throughout midfoot and hindfo ot joints. Ankle mortise is normally aligned. No suspicious bony lesions. Soft tissues: Significant ankle soft tissue swelling is seen. No tibiotalar joint effusion. Steffi s tendon appears normal. IMPRESSION: Marked ankle soft tissue swelling. No ankle fracture or dislocation. No bony erosive ray nges to suggest osteomyelitis. Left midfoot and hindfoot joint osteoarthritis. Reviewed by: Bobby Herron MD on 07/16/2022 6:45 PM PDT Approved by: Bobby Herron MD on 07/16/2022 6:45 PM PDT Station ID: [id number]
[2022-07-16] MEDS ORDERED: LIDOCAINE 1%-EPI 1:100000 20 ML MDV SUBQ STA (18:57)
[2022-07-16] MEDS ORDERED: AMOX/CLAV 875 MG/125 MG TABLET PO STA (19:08)
[2022-07-16 19:13] VITALS: BP 125/56
== END 2022-07-16 19:21 | disposition home or self-care (01) ==
LOC: ED 17:20
DX: M25.572 Pain in left ankle and joints of left foot (principal); R50.9 Fever, unspecified; E11.9 Type 2 diabetes mellitus without complications; Z79.4 Long term (current) use of insulin
CPT/HCPCS: 20605; 36415; 73610; 80048; 83605; 85025; 85651; 86140; 87040; 99282; 99284; A9270; 87070; 87205; 89051

== ENCOUNTER 2022-07-19 13:13 | Emergency (ER) | payer MEDICARE, BC ==
[2022-07-19 14:36] LABS: BASOPHILS % (AUTO) 0.3 %; EOSINOPHILS # (AUTO) 0.2 10^3/uL (0.0-0.7); EOSINOPHILS % (AUTO) 2.7 %; HCT - HEMATOCRIT 22.5 % (37.0-47.0); HGB - HEMOGLOBIN 7.4 g/dL (12.0-16.0); LYMPHOCYTES # (AUTO) 1.3 10^3/uL (1.5-3.5); LYMPHOCYTES % (AUTO) 14.5 %; MEAN CORPUSCULAR HGB CONC 32.9 g/dL (32.0-36.0); MEAN CORPUSCULAR VOLUME 94.1 fL (81.0-99.0); MEAN PLATELET VOLUME 9.6 fL (7.9-10.8); MONOCYTES % (AUTO) 11.4 %; NEUTROPHILS # (AUTO) 6.3 10^3/uL (1.5-6.6); NEUTROPHILS % (AUTO) 70.8 %; PLT - PLATELET COUNT 215 10^3/uL (130-450); RED BLOOD COUNT 2.39 10^6/uL (4.20-5.40); RED CELL DISTRIBUTION WIDTH 13.2 % (12.0-15.0); WHITE BLOOD COUNT 8.9 x10^3/uL (4.8-10.8)
[2022-07-19 14:54] LABS: CALCIUM 8.4 mg/dL (8.5-10.3); POTASSIUM 4.3 mmol/L (3.5-5.0)
--- NOTE | 2022-07-19 15:25 | ED Physician Documentation ---
History of Present Illness - Stated complaint Stated Complaint: L/R FOOT PAIN - Chief complaint Chief Complaint: General - History obtained from History obtained from: Patient, Other (Previous record) - Additonal information Additional information: Patient is an 87-year-old female with a history of diabetes and chronic kidney disease presenting for evaluation of Bilateral feet swelling, left greater than right. This is somewhat chronic in nature but the pain has increased over the last week. She was seen on July 16 after her assisted living facility thought she had a fever.She had labs done. An arthrocentesis of her ankle was attempted without fluid. It was felt less likely then that she had a septic joint. However she was also started on Augmentin. She has been taking the medication as prescribed. She has not noticed any change in her symptoms. She denies any known fevers. Today Staff at her assisted living facility also noted a greenish discoloration to her left foot.She is not taking anything for pain. Review of Systems Constitutional: denies: Fever Nose: denies: Congestion Cardiac: denies: Chest pain / pressure Respiratory: denies: Dyspnea GI: denies: Abdominal Pain : denies: Dysuria Musculoskeletal: reports: Extremity pain Neurologic: denies: Headache PD PAST MEDICAL HISTORY - Past Medical History Past Medical History: Yes Cardiovascular: None, Hypertension, High cholesterol, Coronary artery disease Respiratory: None Neuro: None Endocrine/Autoimmune: Type 2 diabetes, HyPOthyroidism GI: GERD, Colon polyps, Chronic diarrhea, Chronic constipation MANAGER HEART FAILURE: None, Breast cancer : Retention, Incontinence HEENT: Chronic hearing loss Psych: Depression Musculoskeletal: Osteoarthritis Derm: None - Past Surgical History Past Surgical History: Yes General: Cholecystectomy, Appendectomy, Colonoscopy, EGD Ortho: Hip replacement /MANAGER HEART FAILURE: 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, Oophrectomy, Mastectomy Cardiovascular: CABG, Coronary stent HEENT: Cataracts - Present Medications Home Medications: Ambulatory Orders Medication Instructions Recorded Confirmed Ferrous Gluconate 648 mg PO DAILY 07/22/17 09/29/21 Levothyroxine Sodium 100 mcg PO QDAC 07/22/17 09/29/21 Nitroglycerin [Nitrostat] 0.4 mg PO Q5MIN PRN 07/22/17 09/19/21 hydrALAZINE [Apresoline] 10 mg PO TID 07/22/17 09/29/21 Gabapentin 100 mg PO QPM 05/05/20 09/29/21 Sertraline [Zoloft] 25 mg PO DAILY 05/05/20 09/29/21 Cyanocobalamin (Vitamin B-12) 1,000 mcg IM .QMONTH 05/06/20 09/29/21 [Cyanocobalamin Injection] Insulin Detemir [Levemir Flextouch] 27 units SQ DAILY 05/06/20 09/29/21 Isosorbide Mononitrate [Isosorbide 120 mg PO DAILY 05/06/20 09/29/21 Mononitrate ER] Losartan [Cozaar] 50 mg PO BID 05/06/20 09/29/21 Famotidine [Pepcid] 40 mg PO DAILY 12/13/20 09/29/21 Metoprolol Succinate [Toprol Xl] 25 mg PO DAILY 12/13/20 09/29/21 Pravastatin [Pravachol] 20 mg PO DAILY 12/13/20 09/29/21 Cholecalciferol (Vitamin D3) 1 tab PO DAILY 07/06/21 09/29/21 [Vitamin D3] Loperamide [Imodium] 1 tab PO DAILY PRN 07/06/21 09/19/21 Torsemide 3 tab PO DAILY 07/06/21 09/29/21 flaxseed oiL [Flaxseed Oil] 2 cap PO DAILY 07/06/21 09/29/21 Magnesium Oxide [Mag-Oxide] 400 mg PO DAILY 09/19/21 09/29/21 Amox/Clav 875/125 [Augmentin] 1 each PO Q12H #20 tablet 07/16/22 - Allergies Allergies/Adverse Reactions: Allergies Allergy/AdvReac Type Severity Reaction Status Date / Time amlodipine Allergy Unknown Verified 07/19/22 13:40 atorvastatin Allergy Unknown Verified 07/19/22 13:40 sitagliptin [From Januvia] Allergy Unknown Verified 07/19/22 13:40 albuterol AdvReac Unknown TREMMORS Verified 07/19/22 13:40 codeine AdvReac Unknown Nausea Verified 07/19/22 13:40 morphine AdvReac Unknown Nausea Verified 07/19/22 13:40 Sulfa (Sulfonamide AdvReac Unknown Nausea Verified 07/19/22 13:40 Antibiotics) ezetimibe [From Zetia] AdvReac Unknown Verified 07/19/22 13:40 rosuvastatin [From Crestor] AdvReac Unknown Verified 07/19/22 13:40 all codeine derivatives Allergy Unknown Uncoded 07/19/22 13:40 cardiac med starts with "Z" Allergy Unknown Uncoded 07/19/22 13:40 - Social History Does the pt smoke?: No Smoking Status: Never smoker Does the pt drink ETOH?: No Does the pt have substance abuse?: No - Immunizations Immunizations are current?: Yes - POLST Patient has POLST: No POLST Status: DNR PD ED PE NORMAL - General General: Alert and oriented X 3, No acute distress - HEENT HEENT: Atraumatic - Neck Neck: Supple, no meningeal sign - Cardiac Cardiac: RRR, Strong equal pulses - Respiratory Respiratory: No respiratory distress, Clear bilaterally - Derm Derm: Normal color, Warm and dry - Extremities Extremities: Other (Mild swelling to left ankle, no overlying erythema or warmth; Greenish discoloration to the foot which is easily wiped off with an alcohol wipe). No: No edema - Neuro Neuro: Alert and oriented X 3, Normal speech Results - Vitals Vitals: Oxygen O2 Source Room air - Labs Labs: Laboratory Tests 07/19/22 07/19/22 14:29 14:29 WBC 8.9 RBC 2.39 L Hgb 7.4 L Hct 22.5 L MCV 94.1 MCH 31.0 MCHC 32.9 RDW 13.2 Plt Count 215 MPV 9.6 Neut # (Auto) 6.3 Lymph # (Auto) 1.3 L [place] # (Auto) 1.0 Eos # (Auto) 0.2 Baso # (Auto) 0.0 Absolute Nucleated RBC 0.00 Nucleated RBC % 0.0 Sodium 135 Potassium 4.3 Chloride 100 L Carbon Dioxide 25 Anion Gap 10.0 BUN 48 H Creatinine 2.0 H Estimated GFR (MDRD) 24 L Glucose 166 H Calcium 8.4 L PD MEDICAL DECISION MAKING - ED course Complexity details: reviewed results, re-evaluated patient ED course: Patient presenting for reevaluation of left ankle pain and swelling that is been ongoing for 1 week. She has been on Augmentin. She is afebrile. There is no redness or warmth at this time to suggest a septic joint. Her labs are reassuring and improved from prior visit as far as her white count. She does have chronic kidney disease. She is not taking anything for pain for her ankle. I did suggest a trial of acetaminophen which she is comfortable with taking. She also has an appointment with her primary care doctor next week. She is pr esent with a family member and they were counseled on concerning symptoms to return for. Departure - Departure Disposition: 01 Home, Self Care Clinical Impression: Bilateral swelling of feet Condition: Stable Instructions: ED Edema Legs Bilateral Follow-Up: Madeline Goncalves MD [Provider Admit Priv/Credential] - Comments: Your vital signs are stable and you do not have a fever. Your labs are stable from a few days ago. For your feet swelling I would recommend trying to elevate your legs above the level of your heart and also a trial of compression stockings to see if this helps with the swelling. I would also recommend Tylenol for any pain. You can take 650 mg every 6 hours as needed for pain. Please keep your follow-up appointment with your PCP next week. Please continue to finish the course of the antibiotic. If you have any new or worsening symptoms please consider return to the ER. Discharge Date/Time: 07/19/22 15:39
[2022-07-19 15:39] VITALS: BP 143/79
== END 2022-07-19 15:39 | disposition home or self-care (01) ==
LOC: ED 13:13
DX: R60.0 Localized edema (principal); Z66 Do not resuscitate
CPT/HCPCS: 36415; 80048; 85025; 99281; 99283

== ENCOUNTER 2023-04-06 11:48 | Emergency (ER) | payer MEDICARE, BC ==
[2023-04-06 13:04] LABS: BASOPHILS % (AUTO) 0.4 %; EOSINOPHILS # (AUTO) 0.2 10^3/uL (0.0-0.7); EOSINOPHILS % (AUTO) 1.9 %; HCT - HEMATOCRIT 28.9 % (37.0-47.0); HGB - HEMOGLOBIN 9.3 g/dL (12.0-16.0); LYMPHOCYTES # (AUTO) 1.7 10^3/uL (1.5-3.5); LYMPHOCYTES % (AUTO) 22.5 %; MEAN CORPUSCULAR HEMOGLOBIN 30.4 pg (27.0-31.0); MEAN CORPUSCULAR HGB CONC 32.2 g/dL (32.0-36.0); MEAN CORPUSCULAR VOLUME 94.4 fL (81.0-99.0); MEAN PLATELET VOLUME 9.4 fL (7.9-10.8); MONOCYTES # (AUTO) 0.8 10^3/uL (0.0-1.0); MONOCYTES % (AUTO) 9.9 %; PLT - PLATELET COUNT 205 10^3/uL (130-450); RED BLOOD COUNT 3.06 10^6/uL (4.20-5.40); RED CELL DISTRIBUTION WIDTH 14.1 % (12.0-15.0); WHITE BLOOD COUNT 7.7 x10^3/uL (4.8-10.8)
[2023-04-06 13:09] LABS: INR 1.2 (0.8-1.2)
--- NOTE | 2023-04-06 13:13 | ED Physician Documentation ---
PD HPI DYSPNEA - Stated complaint Stated Complaint: SOA - Chief complaint Chief Complaint: Resp - History obtained from History obtained from: Patient, Family - History of Present Illness Timing - onset: How many weeks ago (2) Timing - onset during: Light activity Timing - duration: Weeks (2) Timing - details: Gradual onset, Still present Improved by: Rest, Sitting up Worsened by: Exertion, Laying flat Associated symptoms: Chest pain / discomfort. No: Fever, Cough, Hemoptysis, Wheezing, Bilateral edema, Unilateral edema Similar symptoms before: Diagnosis (CHF) Recently seen: Not recently seen - Additional information Additional information: 88-year-old female with a history of type 2 diabetes and congestive heart failure as well as GI bleed requiring transfusion has increased exertional dyspnea over the past 2 weeks.If she is excessive about her activity she will have chest pain associated with this as well as the shortness of breath. She has resolution of symptoms with rest. Review of Systems Constitutional: denies: Fever Eyes: denies: Decreased vision Ears: denies: Ear pain Nose: denies: Congestion Throat: denies: Sore throat Cardiac: reports: Chest pain / pressure. denies: Palpitations, Pedal edema, Calf pain Respiratory: reports: Dyspnea. 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 SUPERVISOR: None, Breast cancer : Retention, Incontinence HEENT: Chronic hearing loss Psych: Depression, Anxiety Musculoskeletal: Osteoarthritis Derm: None - Past Surgical History Past Surgical History: Yes General: Cholecystectomy, Appendectomy, Colonoscopy, EGD Ortho: Hip replacement /SCREW SUPERVISOR: 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, Oophrectomy, Mastectomy Cardiovascular: CABG, Coronary stent HEENT: Cataracts - Present Medications Home Medications: Ambulatory Orders Medication Instructions Recorded Confirmed Ferrous Gluconate 648 mg PO DAILY 07/22/17 04/06/23 Levothyroxine Sodium 100 mcg PO QDAC 07/22/17 04/06/23 Nitroglycerin [Nitrostat] 0.4 mg PO Q5MIN PRN 07/22/17 04/06/23 hydrALAZINE [Apresoline] 25 mg PO QID 07/22/17 04/06/23 Gabapentin 100 mg PO QPM 05/05/20 04/06/23 Sertraline [Zoloft] 25 mg PO DAILY 05/05/20 04/06/23 Cyanocobalamin (Vitamin B-12) 1,000 mcg IM .QMONTH 05/06/20 04/06/23 [Cyanocobalamin Injection] Insulin Detemir [Levemir Flextouch] 15 units SQ DAILY 05/06/20 04/06/23 Isosorbide Mononitrate [Isosorbide 120 mg PO DAILY 05/06/20 09/29/21 Mononitrate ER] Losartan [Cozaar] 50 mg PO BID 05/06/20 04/06/23 Famotidine [Pepcid] 20 mg PO BID 12/13/20 04/06/23 Metoprolol Succinate [Toprol Xl] 150 mg PO DAILY 12/13/20 04/06/23 Pravastatin [Pravachol] 20 mg PO DAILY 12/13/20 04/06/23 Cholecalciferol (Vitamin D3) 1 tab PO DAILY 07/06/21 04/06/23 [Vitamin D3] Loperamide [Imodium] 1 tab PO Q6HR PRN 07/06/21 04/06/23 Torsemide 3 tab PO DAILY 07/06/21 04/06/23 flaxseed oiL [Flaxseed Oil] 2 cap PO DAILY 07/06/21 04/06/23 Aspirin [[place] Aspirin EC] 81 mg PO DAILY 04/06/23 04/06/23 Furosemide [Lasix] 80 mg PO DAILY #20 tablet 04/06/23 Latanoprost 0.005% Ophth Drops 1 drops OPTH QPM 04/06/23 04/06/23 [Xalatan Ophth Drops] Ondansetron Odt [Zofran Odt] 4 mg TL Q6H PRN 04/06/23 04/06/23 - Allergies Allergies/Adverse Reactions: Allergies Allergy/AdvReac Type Severity Reaction Status Date / Time amlodipine Allergy Unknown Verified 04/06/23 11:57 atorvastatin Allergy Unknown Verified 04/06/23 11:57 sitagliptin [From Januvia] Allergy Unknown Verified 04/06/23 11:57 albuterol AdvReac Unknown TREMMORS Verified 04/06/23 11:57 codeine AdvReac Unknown Nausea Verified 04/06/23 11:57 morphine AdvReac Unknown Nausea Verified 04/06/23 11:57 Sulfa (Sulfonamide AdvReac Unknown Nausea Verified 04/06/23 11:57 Antibiotics) ezetimibe [From Zetia] AdvReac Unknown Verified 04/06/23 11:57 rosuvastatin [From Crestor] AdvReac Unknown Verified 04/06/23 11:57 all codeine derivatives Allergy Unknown Uncoded 07/19/22 13:40 cardiac med starts with "Z" Allergy Unknown Uncoded 07/19/22 13:40 - Social History Does the pt smoke?: No Smoking Status: Never smoker Does the pt drink ETOH?: No Does the pt have substance abuse?: No - Immunizations Immunizations are current?: Yes - POLST Patient has POLST: No POLST Status: DNR PD ED PE NORMAL - Vitals Vital signs reviewed: Yes (Hypertensive) - General General: Alert and oriented X 3, No acute distress, Well developed/nourished - HEENT HEENT: Atraumatic, PERRL, EOMI - Neck Neck: Supple, no meningeal sign, No bony TTP - Cardiac Cardiac: RRR, No murmur - Respiratory Respiratory: No respiratory distress, Other (Bibasilar crackles) - Abdomen Abdomen: Soft, Non tender - Back Back: No CVA TTP, No spinal TTP - Derm Derm: Normal color, Warm and dry, No rash - Extremities Extremities: No deformity, No edema - Neuro Neuro: Alert and oriented X 3, color television console monitor 2-12 intact, No motor deficit, No sensory deficit, Normal speech Eye Opening: Spontaneous Motor: Obeys Commands Verbal: Oriented GCS Score: 15 - Psych Psych: Normal mood, Normal affect Results - Vitals Vitals: Vital Signs - 24 hr 04/06/23 04/06/23 04/06/23 11:57 13:07 14:59 Temperature 36.6 C 36.8 C Heart Rate 55 L 54 L 71 Respiratory 18 20 24 Rate Blood Pressure 143/46 H 154/56 H 164/59 H O2 Saturation 99 100 99 04/06/23 16:00 Temperature Heart Rate 54 L Respiratory 16 Rate Blood Pressure 167/53 H O2 Saturation 98 Oxygen O2 Source Room air - EKG (time done) 1258 EKG releavant findings:: EKG personally interpreted by author of this note. Relevant findings are: Rate: Rate (enter#) (54) Rhythm: NSR Intervals: Prolonged MT, RBBB Ischemia: T wave inversion Compare to prior EKG: Changed from prior EKG (05-05-2020 the T wave inversions now encompass all leads) Computer interpretation: Agree with computer - Labs Labs: Laboratory Tests 04/06/23 04/06/23 04/06/23 12:59 12:59 12:59 WBC 7.7 RBC 3.06 L Hgb 9.3 L Hct 28.9 L MCV 94.4 MCH 30.4 MCHC 32.2 RDW 14.1 Plt Count 205 MPV 9.4 Neut # (Auto) 5.0 Lymph # (Auto) 1.7 [place] # (Auto) 0.8 Eos # (Auto) 0.2 Baso # (Auto) 0.0 Absolute Nucleated RBC 0.00 Nucleated RBC % 0.0 PT 13.0 H INR 1.2 Sodium 138 Potassium 4.0 Chloride 103 Carbon Dioxide 26 Anion Gap 9.0 BUN 30 H Creatinine 1.7 H Estimated GFR (MDRD) 28 L Glucose 107 H Calcium 8.8 Total Bilirubin 0.8 AST 15 ALT < 10 L Alkaline Phosphatase 90 Troponin I High Sens B-Natriuretic Peptide Total Protein 7.5 Albumin 3.6 Globulin 3.9 Albumin/Globulin Ratio 0.9 L Lipase 39 04/06/23 04/06/23 04/06/23 12:59 12:59 14:29 WBC RBC Hgb Hct MCV MCH MCHC RDW Plt Count MPV Neut # (Auto) Lymph # (Auto) [place] # (Auto) Eos # (Auto) Baso # (Auto) Absolute Nucleated RBC Nucleated RBC % PT INR Sodium Potassium Chloride Carbon Dioxide Anion Gap BUN Creatinine Estimated GFR (MDRD) Glucose Calcium Total Bilirubin AST ALT Alkaline Phosphatase Troponin I High Sens 25.9 H* 25.8 H* B-Natriuretic Peptide 847 H Total Protein Albumin Globulin Albumin/Globulin Ratio Lipase - Rads (name of study) chest Relevant Findings:: Prelim report reviewed (Impression: Moderate cardiomegaly with findings suggestive of pulmonary edema/CHF. An infectious/inflammatory process cannot be excluded if clinically appropriate. No focal consolidation seen.), EMP independent interpretation of test PD Medical Decision Making - ED course Complexity details: reviewed old records, reviewed results, re-evaluated patient, considered differential, d/w patient Reviewed Lab Results: We reviewed a complete blood count showing a normal white blood cell count hemoglobin at 9.3 is up from her prior as well as the hematocrit of 28.9 which is up from her most recent of 22 5. INR is 13 chemistries show a BUN of 30 which is less than the patient normally has an creatinine of 1.7 similar to her previous BNP is elevated to 847 and this is a record for the patient troponin high-sensitivity is 25.9 and repeat 2 hours later 25.8.These laboratories indicate that the patient does not require transfusion today. It also indicates worsening congestive heart failure. This is confirmed with chest x-ray exam ination. The patient is on torsemide and she is given intravenous furosemide. We are adding furosemide into her regimen. She has a doctor for follow-up. ED course: 88-year-old female on torsemide for congestive heart failure has accumulation of fluid on her lungs and elevated BNP and a chronically elevated troponin. She is administered intravenous Lasix and placed on a dose of Lasix for home as well. Departure - Departure Disposition: Home, Self Care Clinical Impression: Congestive heart failure Qualifiers: Heart failure type: unspecified Heart failure chronicity: acute on chronic Qualified Code(s): I50.9 - Heart failure, unspecified Condition: Stable Instructions: ED CHF General Follow-Up: Madeline Goncalves MD [Primary Care Provider] - Prescriptions: Furosemide [Lasix] 80 mg PO DAILY #20 tablet Comments: Patti, today it looks like you have retained some fluid and we are giving you additional diuretic to help get rid of it. This is the likely cause of your shortness of breath when you attempt to do anything. We have e-scribed some lasix to the [facility] [address]. Our expectation with treatment is improvement in your shortness of breath when you exert yourself. A follow-up with Dr. Goncalves is indicated within the week. We do not expect you to have to take this dose of extra Lasix regularly. Discharge Date/Time: 04/06/23 16:15
--- NOTE | 2023-04-06 13:14 | XRAY Report ---
PROCEDURE: Chest 1 View X-Ray INDICATIONS: Chest Pain TECHNIQUE: One view of the chest was acquired. COMPARISON: 01/14/2020. FINDINGS: Surgical changes and devices: Median sternotomy wires and postsurgical changes of prior CABG. Surgic al clips in the left axilla. Lungs and pleura: Diffuse interstitial prominence. Perihilar airway thickening. Small bilateral pleu ral effusions. No pneumothorax. Mediastinum: Mediastinal contours appear normal. Heart size is enlarged. Bones and chest wall: No suspicious bony lesions. Chronic appearing osseous deformity of the mid rig ht humeral shaft. Overlying soft tissues appear unremarkable. IMPRESSION: Moderate cardiomegaly with findings suggestive of pulmonary edema/CHF. An infectious/inflammatory pro cess not excluded if clinically appropriate. No focal consolidation seen. Reviewed by: Jerome Herring MD on 04/06/2023 12:13 PM AKTUAN Approved by: Jerome Herring MD on 04/06/2023 12:13 PM AKDT Station ID: [id number]
[2023-04-06 13:17] LABS: ALBUMIN 3.6 g/dL (3.2-5.5); ALBUMIN/GLOBULIN RATIO 0.9 (1.0-2.2); ALKALINE PHOSPHATASE 90 IU/L (42-121); ALT ALANINE AMINOTRANSFERASE < 10 IU/L (10-60); AST ASPARTATE AMINOTRANSFERASE 15 IU/L (10-42); BILIRUBIN,TOTAL 0.8 mg/dL (0.2-1.0); BUN - BLOOD UREA NITROGEN 30 mg/dL (6-20); CALCIUM 8.8 mg/dL (8.5-10.3); CARBON DIOXIDE - CO2 26 mmol/L (21-32); CHLORIDE 103 mmol/L (101-111); CREATININE 1.7 mg/dL (0.4-1.0); GFR - MDRD 28 (>89); GLUCOSE 107 mg/dL (70-100); LIPASE 39 U/L (22-51); SODIUM 138 mmol/L (135-145); TOTAL PROTEIN 7.5 g/dL (6.7-8.2)
[2023-04-06] MEDS ORDERED: FUROSEMIDE 40 MG/4 ML VIAL IVP STA (14:00)
[2023-04-06 16:04] VITALS: BP 167/53
== END 2023-04-06 16:15 | disposition home or self-care (01) ==
LOC: ED 11:48
DX: I50.9 Heart failure, unspecified (principal); I25.810 Atherosclerosis of coronary artery bypass graft(s) without angina pectoris; Z95.1 Presence of aortocoronary bypass graft; E11.42 Type 2 diabetes mellitus with diabetic polyneuropathy; E03.9 Hypothyroidism, unspecified; Z79.899 Other long term (current) drug therapy; Z79.4 Long term (current) use of insulin
CPT/HCPCS: 36415; 80053; 83690; 83880; 84484; 85025; 85610; 93005; 96374; 99284

== ENCOUNTER 2023-07-11 11:58 | Outpatient (CLI) | payer MEDICARE, BC | END 2023-07-11 11:59 | disposition home or self-care (01) | LOC: DI 11:58 | PROVIDERS: ATTEND Internal Medicine | DX: I50.9 Heart failure, unspecified (principal); I08.1 Rheumatic disorders of both mitral and tricuspid valves; I87.8 Other specified disorders of veins | CPT/HCPCS: 93306 ==

== ENCOUNTER 2023-12-19 13:06 | Outpatient (CLI) | payer MEDICARE, BC ==
--- NOTE | 2023-12-19 14:10 | Ultrasound Report ---
PROCEDURE: Duplex Ext Veins Left INDICATIONS: EDEMA OF LOWER EXTREMITY TECHNIQUE: Real-time imaging, as well as color and pulse Doppler interrogation, were performed of the lower extr emity deep veins from the inguinal ligament to the popliteal fossa. Attempted visualization of the ca lf veins was performed. COMPARISON: None. FINDINGS: The deep veins are normally compressible, and free of intraluminal thrombus. Color and pu lse Doppler demonstrate normal phasic intraluminal flow. There is normal augmentation response to di stal compression maneuver. IMPRESSION: No deep venous thrombosis of the visualized lower extremity. Reviewed by: Pema Kemp MD on 12/19/2023 2:09 PM PDT Approved by: Pema Kemp MD on 12/19/2023 2:09 PM PDT Station ID: [id number]
== END 2023-12-19 13:07 | disposition home or self-care (01) ==
LOC: DI 13:06
PROVIDERS: ATTEND Internal Medicine
DX: R60.0 Localized edema (principal)

== ENCOUNTER 2024-01-21 09:14 | Outpatient (CLI) | payer MEDICARE, BC ==
[2024-01-21] MEDS ORDERED: LIDOCAINE-MPF 1% 5 ML VIAL ONE (09:51)
[2024-01-21] MEDS ORDERED: LIDOCAINE 1%-EPI 1:100000 20 ML MDV ONE (09:51)
[2024-01-21] MEDS: LIDOCAINE-MPF 1% 5 ML VIAL TD ONE (11:43)
[2024-01-21] MEDS: LIDOCAINE 1%-EPI 1:100000 20 ML MDV SUBQ ONE (11:45)
--- NOTE | 2024-01-21 11:53 | Ultrasound Report ---
PROCEDURE: Ultrasound-guided right chest wall biopsy INDICATIONS: CHEST MASS TECHNIQUE: The indications, alternatives, benefits, risks, and complications of the procedure were e xplained to the patient. Written informed consent was obtained and placed in the chart. Real-time sonography was utilized to choose the site for percutaneous right chest wall lesion biopsy. The skin was prepped and draped in the usual sterile fashion. 1% lidocaine was infiltrated down to the site of interest. A coaxial needle was then advanced into the site of interest under direct son ographic visualization. A biopsy apparatus was then utilized, and core biopsies were obtained. The needle was then withdrawn; a bandage was applied to the biopsy site. COMPARISON: FINDINGS: Biopsy site(s): Right chest wall subcutaneous lesion Needle: [employer] biopsy needle set. Number of passes: 3 Medications: 1% lidocaine for local anaesthesia. Complications: None. Marker clip was placed in the lesion IMPRESSION: Successful ultrasound-guided right chest wall subcutaneous lesion biopsy, with pathology results pending. Patient status post mastectomy. A marker clip was placed in the lesion. Reviewed by: Yung Araya MD on 01/21/2024 11:52 AM PDT Approved by: Yung Araya MD on 01/21/2024 11:52 AM PDT Station ID: [id number]
== END 2024-01-21 09:15 | disposition home or self-care (01) ==
LOC: DI 09:14
PROVIDERS: ATTEND Internal Medicine
DX: C79.89 Secondary malignant neoplasm of other specified sites (principal); C80.1 Malignant (primary) neoplasm, unspecified
CPT/HCPCS: 20206

== ENCOUNTER 2024-01-25 20:32 | Inpatient (IN) | payer MEDICARE, BC, MEDICAID ==
--- NOTE | 2024-01-25 21:00 | ED Physician Documentation ---
PD HPI GI BLEED - Stated complaint Stated Complaint: VOMITING BLOOD - Chief complaint Chief Complaint: Abd Pain - History obtained from History obtained from: Patient, Family - Additional information Additional information: 89-year-old female with CKD stage IV, HTN presents by private vehicle from [facility] assisted living for vomiting black substances and generalized weakness. History obtained with daughter at bedside. Daughter states that patient was here 01/08 for similar presentation. She was transfused a unit of blood and discharged back to [facility]. This afternoon around 5 or 6 PM she began to vomit black and called her daughter, who brought her in for evaluation. Patient has been taking iron supplements. Nursing reports that shortly after patient arrived she use the restroom and had a large black bowel movement. Medication review shows that patient takes a daily baby aspirin but no other blood thinners. Review of Systems Constitutional: denies: Fever, Chills Cardiac: denies: Chest pain / pressure, Palpitations Respiratory: denies: Dyspnea, Cough, Wheezing GI: reports: Nausea, Vomiting, Bloody / black stool, Other (coffee ground emesis). denies: Abdominal Pain, Constipation, Diarrhea Neurologic: reports: Generalized weakness. 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, Breast cancer : Retention, Incontinence HEENT: Chronic hearing loss Psych: Depression, Anxiety Musculoskeletal: Osteoarthritis Derm: None - Past Surgical History Past Surgical History: Yes General: Cholecystectomy, Appendectomy, Colonoscopy, EGD Ortho: Hip replacement /MANAGER OF MAINTENANCE: 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, Oophrectomy, Mastectomy Cardiovascular: CABG, Coronary stent HEENT: Cataracts - Present Medications Home Medications: Ambulatory Orders Medication Instructions Recorded Confirmed Ferrous Gluconate 2 tab PO DAILY 07/22/17 01/25/24 Levothyroxine Sodium 100 mcg PO QDAC 07/22/17 01/25/24 Nitroglycerin [Nitrostat] 0.4 mg PO Q5MIN PRN 07/22/17 01/25/24 Gabapentin 100 mg PO QPM 05/05/20 01/25/24 Sertraline [Zoloft] 25 mg PO DAILY 05/05/20 01/25/24 Cyanocobalamin (Vitamin B-12) 1,000 mcg IM .QMONTH 05/06/20 01/25/24 [Cyanocobalamin Injection] Isosorbide Mononitrate [Isosorbide 120 mg PO DAILY 05/06/20 01/25/24 Mononitrate ER] Famotidine [Pepcid] 20 mg PO BID 12/13/20 01/25/24 Pravastatin [Pravachol] 20 mg PO DAILY 12/13/20 01/25/24 Loperamide [Imodium] 1 tab PO Q6HR PRN 07/06/21 01/25/24 flaxseed oiL [Flaxseed Oil] 2 cap PO DAILY 07/06/21 01/25/24 Aspirin [[place] Aspirin EC] 81 mg PO DAILY 04/06/23 01/25/24 Ondansetron Odt [Zofran Odt] 4 mg TL Q4HR PRN 04/06/23 01/25/24 Acetaminophen [Acetaminophen Extra 1,000 mg PO Q8HR PRN 01/25/24 01/25/24 Strength] Acetaminophen/Diphenhydramine 2 tab PO HS PRN 01/25/24 01/25/24 [Night Time Pain 25-500 mg Cplt] Benzonatate 200 mg PO Q8HR PRN 01/25/24 01/25/24 Cholecalciferol [Vitamin D3] 25 mcg PO DAILY 01/25/24 01/25/24 Doxazosin Mesylate [Cardura] 2 mg PO HS 01/25/24 01/25/24 Guaifenesin/Dextromethorphan 10 ml PO Q6HR PRN 01/25/24 01/25/24 [Guaifenesin-Dm 100-10 mg/5 ml] Hydralazine HCl 50 mg PO QID 01/25/24 01/25/24 Insulin Glargine [Lantus Solostar] 10 unit SUBQ DAILY 01/25/24 01/25/24 Lactobacillus Combination No.4 1 each PO DAILY 01/25/24 01/25/24 [Probiotic] Losartan Potassium 25 mg PO BID 01/25/24 01/25/24 Metoprolol Succinate [Toprol Xl] 50 mg PO BID 01/25/24 01/25/24 Torsemide [Soaanz] 60 mg PO DAILY 01/25/24 01/25/24 Triamcinolone Acetonide 1 applic TP BID PRN 01/25/24 01/25/24 - Allergies Allergies/Adverse Reactions: Allergies Allergy/AdvReac Type Severity Reaction Status Date / Time amlodipine Allergy Unknown Verified 01/25/24 20:36 atorvastatin Allergy Unknown Verified 01/25/24 20:36 sitagliptin [From Januvia] Allergy Unknown Verified 01/25/24 20:36 albuterol AdvReac Unknown TREMMORS Verified 01/25/24 20:36 codeine AdvReac Unknown Nausea Verified 01/25/24 20:36 morphine AdvReac Unknown Nausea Verified 01/25/24 20:36 Sulfa (Sulfonamide AdvReac Unknown Nausea Verified 01/25/24 20:36 Antibiotics) ezetimibe [From Zetia] AdvReac Unknown Verified 01/25/24 20:36 rosuvastatin [From Crestor] AdvReac Unknown Verified 01/25/24 20:36 all codeine derivatives Allergy Unknown Uncoded 01/25/24 20:36 cardiac med starts with "Z" Allergy Unknown Uncoded 01/25/24 20:36 - Social History Does the pt smoke?: No Smoking Status: Never smoker Does the pt drink ETOH?: No Does the pt have substance abuse?: No - Immunizations Immunizations are current?: Yes - POLST Patient has POLST: No POLST Status: DNR PD ED PE NORMAL - Vitals Vital signs reviewed: Yes - General General: Alert and oriented X 3, Other (frail, appears chronically unwell) - Cardiac Cardiac: RRR, Strong equal pulses - Respiratory Respiratory: No respiratory distress, Clear bilaterally - Abdomen Abdomen: Soft, Non tender, Non distended - Derm Derm: Warm and dry, No rash, Other (pale) - Extremities Extremities: No deformity, No tenderness to palpate, Normal ROM s pain, No edema - Neuro Neuro: Alert and oriented X 3, order to delivery supervisor 2-12 intact, No motor deficit, Normal speech Results - Vitals Vitals: Vital Signs - 24 hr 01/25/24 01/25/24 01/25/24 20:36 21:00 22:00 Temperature 36.8 C Heart Rate 64 61 52 L Respiratory 18 18 17 Rate Blood Pressure 140/100 H 160/51 H 152/40 H O2 Saturation 100 97 96 01/25/24 01/26/24 23:00 00:00 Temperature Heart Rate 54 L 52 L Respiratory 16 16 Rate Blood Pressure 130/42 L 134/39 H O2 Saturation 96 96 Oxygen O2 Source Room air - Labs Labs: Laboratory Tests 01/25/24 01/25/24 01/25/24 21:00 21:00 21:00 WBC 10.0 RBC 2.77 L Hgb 8.6 L Hct 26.6 L MCV 96.0 MCH 31.0 MCHC 32.3 RDW 14.6 Plt Count 167 MPV 10.4 Neut # (Auto) 7.3 H Lymph # (Auto) 1.6 [place] # (Auto) 0.8 Eos # (Auto) 0.2 Baso # (Auto) 0.0 Absolute Nucleated RBC 0.00 Nucleated RBC % 0.0 PT 12.9 H INR 1.2 Sodium Potassium Chloride Carbon Dioxide Anion Gap BUN Creatinine Estimated GFR (MDRD) Glucose Calcium Total Bilirubin AST ALT Alkaline Phosphatase Total Protein Albumin Globulin Albumin/Globulin Ratio Blood Type AB POSITIVE Antibody Screen NEGATIVE Crossmatch IS Only See Detail 01/25/24 01/25/24 21:00 23:00 WBC RBC Hgb 7.3 L Hct 23.1 L MCV MCH MCHC RDW Plt Count MPV Neut # (Auto) Lymph # (Auto) [place] # (Auto) Eos # (Auto) Baso # (Auto) Absolute Nucleated RBC Nucleated RBC % PT INR Sodium 135 Potassium 4.1 Chloride 102 Carbon Dioxide 23 Anion Gap 10.0 BUN 71 H Creatinine 2.6 H Estimated GFR (MDRD) 17 L Glucose 181 H Calcium 8.7 Total Bilirubin 0.5 AST 9 L ALT 4 L Alkaline Phosphatase 93 Total Protein 7.0 Albumin 3.6 Globulin 3.4 Albumin/Globulin Ratio 1.1 Blood Type Antibody Screen Crossmatch IS Only PD Medical Decision Making - ED course Complexity details: reviewed old records, reviewed results, re-evaluated patient, considered differential, d/w patient, d/w family ED course: Patient with coffee-ground emesis and dark tarry stools. Guaiac not ordered as patient is on iron supplements. Nursing staff confirms large black bowel movement on arrival to the emergency department. Abdomen is soft, patient denying specific complaints other than feeling "not good" and "weak". Labs, type and screen sent for analysis. Rocephin and Protonix ordered. Laboratory work significant for hemoglobin 8.6, which is improved from her previous value, however she did receive a unit of packed red blood cells after her last lab value. No further episodes of coffee-ground emesis or melena after administration of medications. Will order repeat hemoglobin with dispo pending second result. Other labs significant for creatinine 2.6, which is baseline for patient. Repeat hemoglobin 7.3. Patient reassessed, sleeping in bed, remains hemodynamically stable. Spoke with Dr. Chavez of general surgery, who recommended 1 unit of blood, admission to hospitalist service, and will see patient in the morning to evaluate for candidacy of upper endoscopy. Departure - Departure Disposition: [facility] DC/[facility] Clinical Impression: Upper GI bleed, Anemia requiring transfusions Condition: Fair
[2024-01-25] MEDS: METOCLOPRAMIDE 10 MG/2 ML VIAL IVP STA (21:13)
[2024-01-25 21:14] LABS: BASOPHILS % (AUTO) 0.3 %; EOSINOPHILS # (AUTO) 0.2 10^3/uL (0.0-0.7); EOSINOPHILS % (AUTO) 1.9 %; HCT - HEMATOCRIT 26.6 % (37.0-47.0); HGB - HEMOGLOBIN 8.6 g/dL (12.0-16.0); LYMPHOCYTES # (AUTO) 1.6 10^3/uL (1.5-3.5); LYMPHOCYTES % (AUTO) 16.3 %; MEAN CORPUSCULAR HGB CONC 32.3 g/dL (32.0-36.0); MEAN PLATELET VOLUME 10.4 fL (7.9-10.8); MONOCYTES # (AUTO) 0.8 10^3/uL (0.0-1.0); MONOCYTES % (AUTO) 7.6 %; NEUTROPHILS # (AUTO) 7.3 10^3/uL (1.5-6.6); NEUTROPHILS % (AUTO) 73.5 %; PLT - PLATELET COUNT 167 10^3/uL (130-450); RED BLOOD COUNT 2.77 10^6/uL (4.20-5.40); RED CELL DISTRIBUTION WIDTH 14.6 % (12.0-15.0)
[2024-01-25] MEDS: PANTOPRAZOLE 40 MG VIAL IV STA (21:15)
[2024-01-25] MEDS ORDERED: PANTOPRAZOLE 40 MG VIAL ONE (21:17)
[2024-01-25 21:21] LABS: INR 1.2 (0.8-1.2); PT - PROTHROMBIN TIME 12.9 secs (9.9-12.6)
[2024-01-25] MEDS: PANTOPRAZOLE 80 MG in SODIUM CHLORIDE 0.9% 100ML 100 ML IV STA (21:22)
[2024-01-25 21:29] LABS: ALBUMIN 3.6 g/dL (3.2-5.5); ALBUMIN/GLOBULIN RATIO 1.1 (1.0-2.2); BILIRUBIN,TOTAL 0.5 mg/dL (0.2-1.0); CALCIUM 8.7 mg/dL (8.5-10.3); CREATININE 2.6 mg/dL (0.6-1.3); POTASSIUM 4.1 mmol/L (3.5-4.5)
--- NOTE | 2024-01-25 22:31 | XRAY Report ---
PROCEDURE: Chest 1V INDICATIONS: COFFEE GROUND EMESIS, WEAKNESS TECHNIQUE: One view of the chest was acquired. COMPARISON: None FINDINGS: Heart size enlarged. Moderate vascular congestion. Some transient left hemidiaphragm small pleural ef fusion with atelectasis and or infiltrate. Midline sternal wires. Chronic appearing right proximal hu merus fracture. IMPRESSION: Cardiomegaly, moderate vascular congestion and left pleural effusion with atelectasis and or infiltra te. Reviewed by: Babar Land MD on 01/25/2024 9:30 PM AKDT Approved by: Babar Land MD on 01/25/2024 9:30 PM AKDT Station ID: [id number]
[2024-01-25 23:21] LABS: HCT - HEMATOCRIT 23.1 % (37.0-47.0); HGB - HEMOGLOBIN 7.3 g/dL (12.0-16.0)
[2024-01-26] MEDS ORDERED: BENZONATATE 200 MG PO PRN (00:06)
[2024-01-26] MEDS ORDERED: BENZONATATE 100 MG CAPSULE PO PRN (00:49)
[2024-01-26] MEDS ORDERED: cefTRIAXone 1 GM VIAL IVP SCH (01:00)
--- NOTE | 2024-01-26 01:04 | HISTORY & PHYSICAL EXAMINATION ---
Chief Complaint - Chief Complaint Chief Complaint: coffee-ground emesis, dark stools History of Present Illness - History of Present Illness HPI Comment/Other: pt brought in d/t reports of weakness, along with dark stools and coffee-ground emesis, which has developed in last 24 h. h/o same along with need for blood transfusions. no fevers or chills reported or noted. no dysuria or hematuia reported or noted. pt denies abd pain. details obtained from ed reports and discussion with ed staff. 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: None, Breast cancer : reports: Retention, Incontinence HEENT: reports: Chronic hearing loss Psych: reports: Depression, Anxiety Musculoskeletal: reports: Osteoarthritis Derm: reports: None MRSA Hx?: No - Past Surgical History General: reports: Cholecystectomy, Appendectomy, Colonoscopy, EGD Ortho: reports: Hip replacement /FOOD PROCESSING CHEMIST: reports: 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, Oophrectomy, Mastectomy Cardiovascular: reports: CABG, Coronary stent HEENT: reports: Cataracts - Family & Social History Family History: Mother: Cancer, Father: [place] Social History Notes: He does not use tobacco products or recreational substances. She rarely drinks alcohol. - Substance History Use: Uses substance without health or social issues: NONE - POLST Patient has POLST: No POLST Status: DNR Meds/Allgy - Home Medications Home Medications: Ambulatory Orders Medication Instructions Recorded Confirmed Ferrous Gluconate 2 tab PO DAILY 07/22/17 01/25/24 Levothyroxine Sodium 100 mcg PO QDAC 07/22/17 01/25/24 Nitroglycerin [Nitrostat] 0.4 mg PO Q5MIN PRN 07/22/17 01/25/24 Gabapentin 100 mg PO QPM 05/05/20 01/25/24 Sertraline [Zoloft] 25 mg PO DAILY 05/05/20 01/25/24 Cyanocobalamin (Vitamin B-12) 1,000 mcg IM .QMONTH 05/06/20 01/25/24 [Cyanocobalamin Injection] Isosorbide Mononitrate [Isosorbide 120 mg PO DAILY 05/06/20 01/25/24 Mononitrate ER] Famotidine [Pepcid] 20 mg PO BID 12/13/20 01/25/24 Pravastatin [Pravachol] 20 mg PO DAILY 12/13/20 01/25/24 Loperamide [Imodium] 1 tab PO Q6HR PRN 07/06/21 01/25/24 flaxseed oiL [Flaxseed Oil] 2 cap PO DAILY 07/06/21 01/25/24 Aspirin [Jasper Aspirin EC] 81 mg PO DAILY 04/06/23 01/25/24 Ondansetron Odt [Zofran Odt] 4 mg TL Q4HR PRN 04/06/23 01/25/24 Acetaminophen [Acetaminophen Extra 1,000 mg PO Q8HR PRN 01/25/24 01/25/24 Strength] Acetaminophen/Diphenhydramine 2 tab PO HS PRN 01/25/24 01/25/24 [Night Time Pain 25-500 mg Cplt] Benzonatate 200 mg PO Q8HR PRN 01/25/24 01/25/24 Cholecalciferol [Vitamin D3] 25 mcg PO DAILY 01/25/24 01/25/24 Doxazosin Mesylate [Cardura] 2 mg PO HS 01/25/24 01/25/24 Guaifenesin/Dextromethorphan 10 ml PO Q6HR PRN 01/25/24 01/25/24 [Guaifenesin-Dm 100-10 mg/5 ml] Hydralazine HCl 50 mg PO QID 01/25/24 01/25/24 Insulin Glargine [Lantus Solostar] 10 unit SUBQ DAILY 01/25/24 01/25/24 Lactobacillus Combination No.4 1 each PO DAILY 01/25/24 01/25/24 [Probiotic] Losartan Potassium 25 mg PO BID 01/25/24 01/25/24 Metoprolol Succinate [Toprol Xl] 50 mg PO BID 01/25/24 01/25/24 Torsemide [Soaanz] 60 mg PO DAILY 01/25/24 01/25/24 Triamcinolone Acetonide 1 applic TP BID PRN 01/25/24 01/25/24 - Allergies Allergies/Adverse Reactions: Allergies Allergy/AdvReac Type Severity Reaction Status Date / Time amlodipine Allergy Unknown Verified 01/25/24 20:36 atorvastatin Allergy Unknown Verified 01/25/24 20:36 sitagliptin [From Januvia] Allergy Unknown Verified 01/25/24 20:36 albuterol AdvReac Unknown TREMMORS Verified 01/25/24 20:36 codeine AdvReac Unknown Nausea Verified 01/25/24 20:36 morphine AdvReac Unknown Nausea Verified 01/25/24 20:36 Sulfa (Sulfonamide AdvReac Unknown Nausea Verified 01/25/24 20:36 Antibiotics) ezetimibe [From Zetia] AdvReac Unknown Verified 01/25/24 20:36 rosuvastatin [From Crestor] AdvReac Unknown Verified 01/25/24 20:36 all codeine derivatives Allergy Unknown Uncoded 01/25/24 20:36 cardiac med starts with "Z" Allergy Unknown Uncoded 01/25/24 20:36 Review of Systems - Other Findings Other Findings: per ed charting Exam - Vital Signs Vital Signs: Vital Signs x48h Temp Pulse Resp BP Pulse Ox 01/26/24 00:48 52 L 14 148/54 H 95 01/26/24 00:00 52 L 16 134/39 H 96 01/25/24 23:00 54 L 16 130/42 L 96 01/25/24 22:00 52 L 17 152/40 H 96 01/25/24 21:00 61 18 160/51 H 97 01/25/24 20:36 36.8 C 64 18 140/100 H 100 - Physical Exam Comments/Other: unable to perform at this time d/t cart connection Conclusion/Plan - Lab Results Fish Bones: 01/25/24 23:00 01/25/24 21:00 - Other Other Results/Comments: pt with - - gi bleeding coffee-ground emesis and dark stools h/o same on iron supplements gen surg on case, transfusion ordered surgeon to discuss with pt about possible endoscopy / colonoscopy - blood loss anemia d/t above receiving transfusion per gen surg recommendations check ct abd/pelvis - baldemar likely exacerbated d/t above diabetic nephropathy check renal sono, gente ivf avoid nephrotoxins as much as possible f/u labs, h/h, replete electrolytes further orders per clinical course and surg recommendations
[2024-01-26 01:54] LABS: BASOPHILS % (AUTO) 0.3 %; EOSINOPHILS % (AUTO) 0.3 %; HCT - HEMATOCRIT 24.5 % (37.0-47.0); HGB - HEMOGLOBIN 7.8 g/dL (12.0-16.0); LYMPHOCYTES # (AUTO) 1.2 10^3/uL (1.5-3.5); LYMPHOCYTES % (AUTO) 17.3 %; MEAN CORPUSCULAR HEMOGLOBIN 30.7 pg (27.0-31.0); MEAN CORPUSCULAR HGB CONC 31.8 g/dL (32.0-36.0); MEAN CORPUSCULAR VOLUME 96.5 fL (81.0-99.0); MONOCYTES # (AUTO) 0.4 10^3/uL (0.0-1.0); MONOCYTES % (AUTO) 5.7 %; NEUTROPHILS # (AUTO) 5.2 10^3/uL (1.5-6.6); NEUTROPHILS % (AUTO) 76.1 %; PLT - PLATELET COUNT 152 10^3/uL (130-450); RED BLOOD COUNT 2.54 10^6/uL (4.20-5.40); RED CELL DISTRIBUTION WIDTH 14.7 % (12.0-15.0); WHITE BLOOD COUNT 6.8 x10^3/uL (4.8-10.8)
--- NOTE | 2024-01-26 02:09 | CT Report ---
PROCEDURE: CT abdomen pelvis with contrast INDICATIONS: gi bleeding TECHNIQUE: Helical axial CT of the abdomen and pelvis was obtained without intravenous contrast and reformatted in multiple planes. Radiation dose reduction was achieved utilizing automated exposure co ntrol or adjustment of mA and/or kV according to patient size. COMPARISON: 01/16/2022 FINDINGS: Lower thorax: Cardiomegaly, midline sternotomy wires and coronary artery bypass graft. Largehiatal h ernia. Liver: Normal in size and attenuation. No contour deformity present. Biliary system: No calcified cholelithiasis or pericholecystic inflammation. No evidence of bile du ct dilatation. Pancreas: Unremarkable without mass or inflammation evident. Spleen: Normal in size and density. Adrenals: Normal morphology and density. Reproductive system: Unremarkable as visualized. Urinary system: Normal renal size and attenuation. No renal calculi, hydronephrosis, or solid mass p resent. Urinary bladder unremarkable. Gastrointestinal system: Diverticulosis without evidence of diverticulitis or obstruction Peritoneal spaces: No mesenteric or retroperitoneal adenopathy. No free air. No free fluid. Vasculature: Dense small vessel atherosclerotic vascular calcification Abdominal wall: Abdominal wall is intact without evidence of ventral or inguinal hernias. Musculoskeletal: Generalized decreased osseous mineralization present. Right hip prosthesis since as sessment of the pelvis Degenerative disc disease and arthropathy in the lumbar spine. IMPRESSION: No acute noncontrast CT findings in the abdomen and pelvis Large hiatal hernia. Diverticulosis without diverticulitis. Diffuse small vessel atherosclerotic vascular calcification Reviewed by: Babar Land MD on 01/26/2024 1:07 AM WINDY Approved by: Babar Land MD on 01/26/2024 1:07 AM WINDY Station ID: [id number]
[2024-01-26 02:11] LABS: MAGNESIUM 1.8 mg/dL (1.7-2.3)
[2024-01-26 02:17] LABS: ALBUMIN 3.3 g/dL (3.2-5.5); ALBUMIN/GLOBULIN RATIO 1.3 (1.0-2.2); ALKALINE PHOSPHATASE 77 IU/L (42-121); ALT ALANINE AMINOTRANSFERASE 4 IU/L (10-60); AST ASPARTATE AMINOTRANSFERASE 8 IU/L (10-42); BILIRUBIN,TOTAL 0.5 mg/dL (0.2-1.0); BUN - BLOOD UREA NITROGEN 70 mg/dL (6-20); CALCIUM 8.5 mg/dL (8.5-10.3); CARBON DIOXIDE - CO2 23 mmol/L (21-32); CHLORIDE 104 mmol/L (101-111); CHOL/HDL RATIO 3.1 (<4.4); CHOLESTEROL 113 mg/dL; CREATININE 2.6 mg/dL (0.6-1.3); GFR - MDRD 17 (>89); GLUCOSE 151 mg/dL (74-104); HDL CHOLESTEROL 36 mg/dL; LDL CHOLESTEROL,CALCULATED 58 mg/dL; LDL/HDL RATIO 1.6 (<4.4); POTASSIUM 4.2 mmol/L (3.5-4.5); SODIUM 135 mmol/L (135-145); TOTAL PROTEIN 5.9 g/dL (6.4-8.9); TRIGLYCERIDES 94 mg/dL (48-352); VLDL CHOLESTEROL 19 mg/dL
[2024-01-26 02:21] LABS: THYROID STIMULATING HORMONE 0.35 uIU/mL (0.34-5.60)
[2024-01-26] MEDS: SODIUM CHLORIDE FLUSH 0.9% 10 ML SYRINGE IVP SCH (04:19)
[2024-01-26] MEDS: LACTATED RINGERS 1,000 ML IV SCH (04:26)
[2024-01-26] MEDS: metroNIDAZOLE 500 MG/100 ML 500 MG/100 ML BAG IV SCH (04:33)
[2024-01-26] MEDS: cefTRIAXone 1 GM in SODIUM CHLORIDE 0.9% MINIBAG 100 ML IV SCH (05:03)
[2024-01-26 05:41] LABS: BASOPHILS % (AUTO) 0.3 %; EOSINOPHILS # (AUTO) 0.1 10^3/uL (0.0-0.7); EOSINOPHILS % (AUTO) 0.8 %; HCT - HEMATOCRIT 26.1 % (37.0-47.0); HGB - HEMOGLOBIN 8.5 g/dL (12.0-16.0); LYMPHOCYTES # (AUTO) 1.3 10^3/uL (1.5-3.5); LYMPHOCYTES % (AUTO) 21.4 %; MEAN CORPUSCULAR HEMOGLOBIN 30.9 pg (27.0-31.0); MEAN CORPUSCULAR HGB CONC 32.6 g/dL (32.0-36.0); MEAN CORPUSCULAR VOLUME 94.9 fL (81.0-99.0); MEAN PLATELET VOLUME 10.4 fL (7.9-10.8); MONOCYTES # (AUTO) 0.6 10^3/uL (0.0-1.0); MONOCYTES % (AUTO) 9.3 %; NEUTROPHILS # (AUTO) 4.2 10^3/uL (1.5-6.6); NEUTROPHILS % (AUTO) 67.9 %; PLT - PLATELET COUNT 137 10^3/uL (130-450); RED BLOOD COUNT 2.75 10^6/uL (4.20-5.40); RED CELL DISTRIBUTION WIDTH 14.5 % (12.0-15.0); WHITE BLOOD COUNT 6.1 x10^3/uL (4.8-10.8)
[2024-01-26 05:57] LABS: ALBUMIN 3.1 g/dL (3.2-5.5); ALBUMIN/GLOBULIN RATIO 1.1 (1.0-2.2); BILIRUBIN,TOTAL 1.1 mg/dL (0.2-1.0); CALCIUM 8.2 mg/dL (8.5-10.3); CREATININE 2.6 mg/dL (0.6-1.3); MAGNESIUM 1.8 mg/dL (1.7-2.3); TOTAL PROTEIN 5.9 g/dL (6.4-8.9)
[2024-01-26] MEDS: LEVOTHYROXINE 100 MCG TABLET PO SCH (06:31)
[2024-01-26] MEDS: PANTOPRAZOLE 80 MG in SODIUM CHLORIDE 0.9% 100ML 100 ML IV SCH (06:34)
[2024-01-26] MEDS ORDERED: FERROUS GLUCONATE 324 MG TABLET PO SCH (08:00)
[2024-01-26 08:28] LABS: ESTIMATED AVERAGE GLUCOSE 120 mg/dL (70-100); HEMOGLOBIN A1c% 5.8 % (4.27-6.07)
--- NOTE | 2024-01-26 08:45 | PHARMACY PROGRESS NOTE ---
- Best Possible Medication History Admit Date and Time: 01/26/24 0010 Processed by: Pharmacy Medications reviewed in ED?: Yes Medication History completed: Yes Secondary Source(s): Facility MAR as ONLY source As the person ultimately responsible for medication therapy, providers are able to order a medication from an existing home medication list in [facility] via the "Reconcile Routine" prior to Confirmation of that medication by director decision support. Such practice is discouraged except when the physician, in their clinical judgment, deems that a medical need exists for a medication without regard to previous use.
[2024-01-26] MEDS ORDERED: TORSEMIDE 60 MG PO SCH (09:00)
[2024-01-26] MEDS ORDERED: ISOSORBIDE MONONITRATE 120 MG PO SCH (09:00)
[2024-01-26] MEDS ORDERED: NON FORMULARY MED (Hydralazine Hcl [Hydralazine Hcl] 50 MG Tablet) PO SCH (09:00)
[2024-01-26] MEDS ORDERED: NON FORMULARY MED (Losartan Potassium [Losartan Potassium] 25 MG Tablet) PO SCH (09:00)
[2024-01-26] MEDS ORDERED: NON FORMULARY MED (Lactobacillus Combination No.4 [Probiotic] 1 EACH Capsule) PO SCH (09:00)
--- NOTE | 2024-01-26 09:29 | Ultrasound Report ---
PROCEDURE: Renal (Retroperitoneal) INDICATIONS: baldemar TECHNIQUE: Real-time scanning was performed of the retroperitoneal organs, with image documentation. COMPARISON: CT abdomen/pelvis 01/26/2024. FINDINGS: Kidneys: Kidneys are normal in size. Right kidney measures 10.9 cm long; left kidney measures 11.0 cm long. Right renal cortical thickness is 0.8 cm; left renal cortical thickness is 0.7 cm. No robson d masses, hydronephrosis, or nephrolithiasis. Bladder: Pre-void bladder volume is 626 mL. Patient was unable to void at the time of the exam. Pre- void images demonstrate no intraluminal masses or stones. On pre-void images, bilateral ureteral jet s are noted with color Doppler interrogation. (Of note, ureteral jets may not be detectable in up to 25% of cases due to insufficient differences in specific gravity between ureteral and bladder urine) . Miscellaneous: No free abdominal fluid. IMPRESSION: 1.Mild bilateral renal cortical thinning. No hydronephrosis. 2.Bladder volume 626 mL. Patient was unable to void at the time of the exam. Reviewed by: Tesfaye Goldsmith MD on 01/26/2024 9:27 AM PDT Approved by: Tesfaye Goldsmith MD on 01/26/2024 9:27 AM PDT Station ID: [id number]
[2024-01-26] MEDS: INSULIN LISPRO 300 UNIT/3 ML PEN SUBQ SCH (09:56)
[2024-01-26] MEDS: hydrALAZINE 25 MG TABLET PO SCH (09:58)
[2024-01-26] MEDS: PANTOPRAZOLE 40 MG VIAL IV SCH (09:58)
[2024-01-26] MEDS: SACCHAROMYCES BOULARDII 250 MG CAPSULE PO SCH (09:58)
[2024-01-26] MEDS: LOSARTAN 50 MG TABLET PO SCH (09:59)
[2024-01-26] MEDS: LACTOBACILLUS RHAMNOSUS GG CAPSULE PO SCH (09:59)
[2024-01-26] MEDS: TORSEMIDE 20 MG TABLET PO SCH (09:59)
[2024-01-26] MEDS: METOPROLOL SUCCINATE 50 MG TABLET PO SCH (10:00)
[2024-01-26] MEDS: FERROUS GLUCONATE 324 MG TABLET PO SCH (10:00)
[2024-01-26] MEDS: CHOLECALCIFEROL 25 MCG TABLET PO SCH (10:00)
[2024-01-26] MEDS: ISOSORBIDE MONONITRATE ER 30 MG TABLET PO SCH (10:13)
[2024-01-26 11:59] LABS: HCT - HEMATOCRIT 25.5 % (37.0-47.0); HGB - HEMOGLOBIN 8.3 g/dL (12.0-16.0)
[2024-01-26 14:44] LABS: FECAL OCCULT BLOOD (FIT) POSITIVE (NEGATIVE)
[2024-01-26 16:07] LABS: CALCIUM 8.4 mg/dL (8.5-10.3); CREATININE 2.4 mg/dL (0.6-1.3); MAGNESIUM 1.7 mg/dL (1.7-2.3); PHOSPHORUS 3.2 mg/dL (2.5-5.0)
[2024-01-26 16:22] LABS: THYROID STIMULATING HORMONE 0.35 uIU/mL (0.34-5.60)
[2024-01-26 18:04] LABS: HCT - HEMATOCRIT 25.5 % (37.0-47.0); HGB - HEMOGLOBIN 8.3 g/dL (12.0-16.0)
[2024-01-26] MEDS ORDERED: PANTOPRAZOLE 40 MG VIAL IV SCH (21:00)
[2024-01-26] MEDS: GABAPENTIN 100 MG CAPSULE PO SCH (21:27)
[2024-01-26] MEDS: SODIUM CHLORIDE FLUSH 0.9% 10 ML SYRINGE IVP PRN (21:28)
[2024-01-26] MEDS: DOXAZOSIN 1 MG TABLET PO SCH (21:30)
[2024-01-27] MEDS: ZINC OXIDE 12% OINT 57 GM TUBE TOP PRN (05:46)
[2024-01-27 06:25] LABS: HCT - HEMATOCRIT 26.9 % (37.0-47.0); MEAN CORPUSCULAR HEMOGLOBIN 31.4 pg (27.0-31.0); MEAN CORPUSCULAR HGB CONC 33.5 g/dL (32.0-36.0); MEAN CORPUSCULAR VOLUME 93.7 fL (81.0-99.0); MEAN PLATELET VOLUME 10.4 fL (7.9-10.8); RED BLOOD COUNT 2.87 10^6/uL (4.20-5.40); RED CELL DISTRIBUTION WIDTH 14.7 % (12.0-15.0); WHITE BLOOD COUNT 7.8 x10^3/uL (4.8-10.8)
[2024-01-27 06:59] LABS: CALCIUM 8.5 mg/dL (8.5-10.3); CREATININE 2.3 mg/dL (0.6-1.3); MAGNESIUM 1.7 mg/dL (1.7-2.3); PHOSPHORUS 3.3 mg/dL (2.5-5.0)
[2024-01-27 07:43] LABS: % IRON SATURATION 30 % (20-50); IRON 51 ug/dL (50-212); TOTAL IRON BINDING CAPACITY 171 ug/dL (250-450); TRANSFERRIN 122 mg/dL (203-362)
[2024-01-27] MEDS: ONDANSETRON 4 MG/2 ML VIAL IVP PRN (09:22)
--- NOTE | 2024-01-27 13:52 | PROVIDER PROGRESS NOTE ---
Subjective - Prog Note Date Prog Note Date: 01/27/24 Prog Note Time: 13:50 - Subjective Subjective: Has a hx of iron def anemia in past. EGD and scope done ~2009. Hgb was 6.4 with labs 04/2020 drawn for escalera of GARVIN and cardiology clinic asked her to come to ER. She was on coumadin for chronic atrial fib and INR 2.9. Received 2 units of blood. EGD/scope not done then bc recommended outpt escalera. Returned to ER 05/2020 w symptomatic anemia and fatigue and transfused 1 unit again w/o admit. EGD and colonscopy done 11/2020. EGD with 2 large bleeding gastric polyps that were excised w hot snare. Not retrieved. Other, smaller, nonbleeding polyps seen. Colon with innumberable small polyps thou out the colon. 2 large semipudunculated near obstruciton polyps prox R c olon Diverituclosis. Pathology of colon polyps was hyperplastic and tubular adenomas negative for high grade dysplasia and carcinoma. Repeat colonoscopy done 09/2021 and 2 tubular adenomas removed again neg for high grade dysplasia and carcinoma. Seen for CHF in ER 03/2023 and Hgb was 9.3. 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 She has had bilateral mastectomies for breast cancer. It was one breast then years later the second breast. In the last year, she has developed nodules under the skin of the L breast incision site. They are getting larger but no eroding the skin. They don't hurt. She gets iron infusions in the MAC and had one 01/09/24. During that visit she c/o fatigue and weak. But she had had a busy day in [facility] the day before and Hgb was stable. In the MAC her Hgb was 7.8 and usually 10. Sent to the ER and transfused 1 unit and ER MD discussed with Gen Surg who felt she could get EGD as outpatient. INR was 1.1. She returns / w hematemesis. She is on ASA and famotidine. Repeat INR 1.2. She is not on coumadin anymore. Hgb was 7.3 and she was transfused 1 unit. She is not 9.0. She lives at [facility] due to inability to take care of herself. Has a severe tremor on exam w pill rolling but Very alert. She tells me she has essential tremor and it runs in her family. Nausea this morning. Can't really eat at all. She has tried twice and both times had emesis (no hematemesis). Stool is black and she says that's not new. It's from oral iron supplementation. No cp, syncope. Case discussed w Surgery (Dr. Chavez and Dr. Varela) and everyone, including patient, feel she doesn't need urgent EGD. She is so weak and miserable. She complains of L foot burning and pain from peripheral neuropathy of long standing duration. Worse for the last few weeks especially in the ball of the L foot. It's made better by the RN rubbing her foot. She has sharp, intermitent bilateral chest pain that is fleeting and feels "like little needles stabbing me". She does have orthopnea but no leg edema. She can't remember when her coumadin was stopped. Current Medications - Current Medications Current Medications: Active Medications Acetaminophen (Acetaminophen 325 Mg Tablet) 650 mg PO Q6H PRN PRN Reason: Pain 1 to 4, or Fever Benzonatate (Benzonatate 100 Mg Capsule) 200 mg PO Q8H PRN PRN Reason: Cough Cholecalciferol (Cholecalciferol 25 Mcg Tablet) 25 mcg PO DAILY FOR[facility]LY [facility], [facility] Last Admin: 01/27/24 09:08 Dose: 25 mcg Doxazosin Mesylate (Doxazosin 1 Mg Tablet) 2 mg PO HS [facility], [facility] Last Admin: 01/26/24 21:30 Dose: 2 mg Ferrous Gluconate (Ferrous Gluconate 324 Mg Tablet) 648 mg PO DAILYWM [facility], [facility] Last Admin: 01/27/24 09:08 Dose: 648 mg Gabapentin (Gabapentin 100 Mg Capsule) 100 mg PO QPM [facility], [facility] Last Admin: 01/26/24 21:27 Dose: 100 mg Hydralazine HCl (Hydralazine 25 Mg Tablet) 50 mg PO QID [facility], [facility] Last Admin: 01/27/24 13:29 Dose: 50 mg Lactated Ringer's (Lr) 1,000 mls @ 100 mls/hr IV .Q10H [facility], [facility] Last Admin: 01/27/24 01:35 Dose: 100 mls/hr Metronidazole (Flagyl 500 Mg/100 Ml) 500 mg in 100 mls @ 100 mls/hr IV Q8H [facility], [facility] Last Infusion: 01/27/24 13:29 Dose: Infused Ceftriaxone Sodium 1 gm/ (Sodium Chloride) 100 mls @ 200 mls/hr IV Q24H [facility], [facility] Last Infusion: 01/27/24 05:35 Dose: Infused Insulin Human Lispro (Insulin Lispro 300 Unit/3 Ml Pen) 1 - 9 unit SUBQ 080 0,1200,1700,2100 [facility], [facility]; Protocol Last Admin: 01/27/24 11:30 Dose: 1 unit Isosorbide Mononitrate (Isosorbide Mononitrate Er 30 Mg Tablet) 120 mg PO DAILY [facility] Last Admin: 01/27/24 09:09 Dose: 120 mg Lactobacillus Rhamnosus (Lactobacillus Rhamnosus Gg Capsule) 1 cap PO DAILY [facility] Last Admin: 01/27/24 09:09 Dose: 1 cap Levothyroxine Sodium (Levothyroxine 100 Mcg Tablet) 100 mcg PO QDAC [facility] Last Admin: 01/27/24 05:46 Dose: 100 mcg Losartan Potassium (Losartan 50 Mg Tablet) 25 mg PO BID [facility] Last Admin: 01/27/24 09:09 Dose: 25 mg Metoprolol Succinate (Metoprolol Succinate 50 Mg Tablet) 50 mg PO BID [facility] Last Admin: 01/27/24 09:08 Dose: 50 mg Multi-Ingredient Ointment (Zinc Oxide 12% Oint 57 Gm Tube) 1 applic TOP PRN PRN PRN Reason: Skin Care Last Admin: 01/27/24 05:46 Dose: 1 applic Ondansetron HCl (Ondansetron 4 Mg/2 Ml Vial) 4 mg IVP Q6HR PRN PRN Reason: Nausea / Vomiting Last Admin: 01/27/24 09:22 Dose: 4 mg Pantoprazole Sodium (Pantoprazole 40 Mg Vial) 40 mg IV BID [facility] Last Admin: 01/27/24 09:07 Dose: 40 mg Saccharomyces Boulardii (Saccharomyces Boulardii 250 Mg Capsule) 250 mg PO BIDWM [facility] Last Admin: 01/27/24 09:09 Dose: 250 mg Sodium Chloride (Sodium Chloride Flush 0.9% 10 Ml Syringe) 10 ml IVP PRN PRN PRN Reason: NEEDED PER PROVIDER ORDERS Last Admin: 01/27/24 05:46 Dose: 10 ml Sodium Chloride (Sodium Chloride Flush 0.9% 10 Ml Syringe) 10 ml IVP 0100,0900,1700 [facility] Last Admin: 01/27/24 09:07 Dose: 10 ml Torsemide (Torsemide 20 Mg Tablet) 60 mg PO DAILY [facility] Last Admin: 01/27/24 09:08 Dose: 60 mg Ferrous Gluconate 2 tab PO DAILY 07/22/17 Levothyroxine Sodium 100 mcg PO QDAC 07/22/17 Nitroglycerin [Nitrostat] 0.4 mg PO Q5MIN PRN 07/22/17 Gabapentin 100 mg PO QPM 05/05/20 Sertraline [Zoloft] 25 mg PO DAILY 05/05/20 Cyanocobalamin (Vitamin B-12) [Cyanocobalamin Injection] 1,000 mcg IM .QMONTH 05/06/20 Isosorbide Mononitrate [Isosorbide Mononitrate ER] 120 mg PO DAILY 05/06/20 Famotidine [Pepcid] 20 mg PO BID 12/13/20 Pravastatin [Pravachol] 20 mg PO DAILY 12/13/20 Loperamide [Imodium] 1 tab PO Q6HR PRN 07/06/21 flaxseed oiL [Flaxseed Oil] 2 cap PO DAILY 07/06/21 Aspirin [[place] Aspirin EC] 81 mg PO DAILY 04/06/23 Ondansetron Odt [Zofran Odt] 4 mg TL Q4HR PRN 04/06/23 Acetaminophen [Acetaminophen Extra Strength] 1,000 mg PO Q8HR PRN 01/25/24 Acetaminophen/Diphenhydramine [Night Time Pain 25-500 mg Cplt] 2 tab PO HS PRN 01/25/24 Benzonatate 200 mg PO Q8HR PRN 01/25/24 Cholecalciferol [Vitamin D3] 25 mcg PO DAILY 01/25/24 Doxazosin Mesylate [Cardura] 2 mg PO HS 01/25/24 Guaifenesin/Dextromethorphan [Guaifenesin-Dm 100-10 mg/5 ml] 10 ml PO Q6HR PRN 01/25/24 Hydralazine HCl 50 mg PO QID 01/25/24 Insulin Glargine [Lantus Solostar] 10 unit SUBQ DAILY 01/25/24 Lactobacillus Combination No.4 [Probiotic] 1 each PO DAILY 01/25/24 Losartan Potassium 25 mg PO BID 01/25/24 Metoprolol Succinate [Toprol Xl] 50 mg PO BID 01/25/24 Torsemide [Soaanz] 60 mg PO DAILY 01/25/24 Triamcinolone Acetonide 1 applic TP BID PRN 01/25/24 Objective - Vital Signs/Intake & Output Reviewed Vital Signs: Yes Vital Signs: Vital Signs x48h Temp Pulse Resp BP Pulse Ox 01/27/24 11:11 36.7 C 67 20 102/56 L 95 01/27/24 07:44 36.7 C 58 L 18 130/61 96 Intake & Output: Intake & Output 01/24/24 01/25/24 01/26/24 01/27/24 23:59 23:59 23:59 23:59 Intake Total 20 2981.500 1735 Output Total 650 300 Balance 20 2331.500 1435 - Objective General Appearance: positive: Alert (frail, elderly white female who knows where she is and why), Moderate distress (from her nausea. Emesis bag at the ready in her L hand.) Eyes Bilateral: positive: PERRL, EOMI ENT: positive: Pharynx nml, No signs of dehydration Neck: positive: No JVD. negative: Stiff neck Respiratory: positive: No respiratory distress, Other (Right chest wall skin w incision of mastectomy and along lateral line, there are SQ nodules and a small 1.5 cm horse shoe shaped raised erosion. No pain.). negative: Wheezes, Rales, Rhonchi Cardiovascular: positive: Irregularly irregular, Systolic murmur. negative: JVD present, Gallop/S4, Friction rub Abdomen: positive: Non-tender, No organomegaly, Nml bowel sounds, No distention Skin: positive: Warm, Dry, Pallor Extremities: positive: Full ROM, No pedal edema, Other (L foot w good pulses, nml capillary refill) Neurologic/Psychiatric: positive: Oriented x3, CN's nml (2-12). negative: Motor nml (R>L tremor, mild head shake, voice intact) - Lab Results Fish Bones: 01/27/24 05:28 01/27/24 05:28 Other Labs: Lab Results x24hrs 01/27/24 01/27/24 01/27/24 Range/Units 11:04 07:34 05:28 WBC (4.8-10.8) x10^3/uL RBC (4.20-5.40) 10^6/uL Hgb (12.0-16.0) g/dL Hct (37.0-47.0) % MCV (81.0-99.0) fL MCH (27.0-31.0) pg MCHC (32.0-36.0) g/dL RDW (12.0-15.0) % Plt Count (130-450) 10^3/uL MPV (7.9-10.8) fL Sodium (135-145) mmol/L Potassium (3.5-4.5) mmol/L Chloride (101-111) mmol/L Carbon Dioxide (21-32) mmol/L Anion Gap (6-13) BUN (6-20) mg/dL Creatinine (0.6-1.3) mg/dL Estimated GFR (MDRD) (>89) Glucose (74-104) mg/dL POC Whole Bld Glucose 144 H 120 H (70 - 100) mg/dL Calcium (8.5-10.3) mg/dL Phosphorus (2.5-5.0) mg/dL Magnesium (1.7-2.3) mg/dL Iron 51 (50-212) ug/dL TIBC 171 L (250-450) ug/dL % Saturation 30 (20-50) % Transferrin 122 L (203-362) mg/dL TSH (0.34-5.60) uIU/mL Stl Occult Blood (IFOB) (NEGATIVE) 01/27/24 01/27/24 01/26/24 Range/Units 05:28 05:28 20:26 WBC 7.8 (4.8-10.8) x10^3/uL RBC 2.87 L (4.20-5.40) 10^6/uL Hgb 9.0 L (12.0-16.0) g/dL Hct 26.9 L (37.0-47.0) % MCV 93.7 (81.0-99.0) fL MCH 31.4 H (27.0-31.0) pg MCHC 33.5 (32.0-36.0) g/dL RDW 14.7 (12.0-15.0) % Plt Count 147 (130-450) 10^3/uL MPV 10.4 (7.9-10.8) fL Sodium 138 (135-145) mmol/L Potassium 4.0 (3.5-4.5) mmol/L Chloride 105 (101-111) mmol/L Carbon Dioxide 24 (21-32) mmol/L Anion Gap 9.0 (6-13) BUN 61 H (6-20) mg/dL Creatinine 2.3 H (0.6-1.3) mg/dL Estimated GFR (MDRD) 20 L (>89) Glucose 114 H (74-104) mg/dL POC Whole Bld Glucose 117 H (70 - 100) mg/dL Calcium 8.5 (8.5-10.3) mg/dL Phosphorus 3.3 (2.5-5.0) mg/dL Magnesium 1.7 (1.7-2.3) mg/dL Iron (50-212) ug/dL TIBC (250-450) ug/dL % Saturation (20-50) % Transferrin (203-362) mg/dL TSH (0.34-5.60) uIU/mL Stl Occult Blood (IFOB) (NEGATIVE) 01/26/24 01/26/24 01/26/24 Range/Units 18:00 16:40 15:45 WBC (4.8-10.8) x10^3/uL RBC (4.20-5.40) 10^6/uL Hgb 8.3 L (12.0-16.0) g/dL Hct 25.5 L (37.0-47.0) % MCV (81.0-99.0) fL MCH (27.0-31.0) pg MCHC (32.0-36.0) g/dL RDW (12.0-15.0) % Plt Count (130-450) 10^3/uL MPV (7.9-10.8) fL Sodium 137 (135-145) mmol/L Potassium 4.0 (3.5-4.5) mmol/L Chloride 105 (101-111) mmol/L Carbon Dioxide 24 (21-32) mmol/L Anion Gap 8.0 (6-13) BUN 67 H (6-20) mg/dL Creatinine 2.4 H (0.6-1.3) mg/dL Estimated GFR (MDRD) 19 L (>89) Glucose 118 H (74-104) mg/dL POC Whole Bld Glucose 116 H (70 - 100) mg/dL Calcium 8.4 L (8.5-10.3) mg/dL Phosphorus 3.2 (2.5-5.0) mg/dL Magnesium 1.7 (1.7-2.3) mg/dL Iron (50-212) ug/dL TIBC (250-450) ug/dL % Saturation (20-50) % Transferrin (203-362) mg/dL TSH 0.35 (0.34-5.60) uIU/mL Stl Occult Blood (IFOB) (NEGATIVE) 01/26/24 Range/Units 14:15 WBC (4.8-10.8) x10^3/uL RBC (4.20-5.40) 10^6/uL Hgb (12.0-16.0) g/dL Hct (37.0-47.0) % MCV (81.0-99.0) fL MCH (27.0-31.0) pg MCHC (32.0-36.0) g/dL RDW (12.0-15.0) % Plt Count (130-450) 10^3/uL MPV (7.9-10.8) fL Sodium (135-145) mmol/L Potassium (3.5-4.5) mmol/L Chloride (101-111) mmol/L Carbon Dioxide (21-32) mmol/L Anion Gap (6-13) BUN (6-20) mg/dL Creatinine (0.6-1.3) mg/dL Estimated GFR (MDRD) (>89) Glucose (74-104) mg/dL POC Whole Bld Glucose (70 - 100) mg/dL Calcium (8.5-10.3) mg/dL Phosphorus (2.5-5.0) mg/dL Magnesium (1.7-2.3) mg/dL Iron (50-212) ug/dL TIBC (250-450) ug/dL % Saturation (20-50) % Transferrin (203-362) mg/dL TSH (0.34-5.60) uIU/mL Stl Occult Blood (IFOB) POSITIVE A (NEGATIVE) ABX Reporting Has patient been on IV antibiotics over the past 48 hours?: No Assessment/Plan - Problem List (1) Nausea & vomiting Impression: She was admitted because of symptomatic anemia. While that has been treated with transfusion, what has become worse is intense nausea and vomiting. She has tried to eat twice today and each time she has vomited up her food. Albeit her food is Jell-O. As such she cannot be discharged. We have already done a CT of the abdomen on admission. While she has diverticulosis without diverticulitis, there is no obstruction or tumor seen. Liver, pancreas, and spleen all appear clear Plan: Schedule antiemetics with Compazine and Zofran Keep on clear liquids for now We are not going to need to do an EGD now. So she does not need to be NPO. Qualifiers: Vomiting type: bilious vomiting Qualified Code(s): R11.14 - Bilious vomiting (2) Anemia requiring transfusions Impression: She does not have a history of gastric ulcers. She does have a history of reflux. Previous EGD had 2 large bleeding polyps. However those polyps were not retrieved and as such we do not know the pathology. There is a possibility that this patient has gastric neoplasm as the cause of her bleeding and nausea and vomiting. At this time we are just checking hemoglobin. BP is 102 systolic right now. Low for her. Pulse is in the 50s. Plan: Check hemoglobin every 8 hours Proton pump inhibitors IV until able to take po Tentatively resume p.o. w clears and increase diet as tolerated (3) History of gastric polyp Impression: unfortunately those polyps were not retrieved. So no pathology. possibility of gastric neoplasm remains in the differential as a cause of GI bleed with hematemesis. At this time, general surgery feels that we will work her up in the outpatient setting. However, if she continues not to be able to eat, I would suggest doing the EGD during this admission (4) Malignant neoplasm uncertain whether primary or metastatic Impression: previous history of bilateral breast cancer. Pathology unknown. Patient cannot tell me what type of cancer it was. 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 I am the first person to tell her that diagnosis. She said that she had not yet discussed the pathology reports with her primary care provider. I did ask her if she wanted me to wait until family could get her later this afternoon and we could all discuss this together but she says she has she did not want me to discuss this with family as of yet. She wanted to know the diagnosis and then she could discuss it with them, if she was going to discuss it with them. She is a DNR. Plan: Get old records to see what type of tumor (5) Controlled type 2 diabetes mellitus with complication, with long-term current use of insulin Impression: complication is that of peripheral neuropathy. Her glucose has stayed between 120 and 144 while she is NPO. Plan: I thought about stopping glucose checks. But if she starts to eat, her glucose will go up. She is usually on Lantus at home. As such continue glucose checks AC 3 times daily with sliding scale insulin. Since massage makes her feel feel so much better, I will add menthol cream to see if the cooling effect will help. (6) Acute worsening of stage 3 chronic kidney disease Impression: baseline creatinine appears to be 1.7. She can get into the twos if she is dehydrated or having a GI bleed as seen in the medical record. With the December visit to the ER she was over 2. CT of abd and retroperitoneal US are neg for hydronephrosis. She continues to be 2.6. I attribute her sudden rise from acute blood loss anemia and dehydration. With hydration and blood transfusion, her creatinine has come down to 2.3 (but not baseline 1.). Plan: Continue IV hydration at a slow pace because of her history of CHF Continue to monitor creatinine daily Avoid nephrotoxic agents
[2024-01-27] MEDS: ACETAMINOPHEN 325 MG TABLET PO PRN (14:22)
[2024-01-27] MEDS ORDERED: PROCHLORPERAZINE 10 MG/2 ML VIAL IVP PRN (14:44)
[2024-01-27 15:15] LABS: HCT - HEMATOCRIT 25.7 % (37.0-47.0); HGB - HEMOGLOBIN 8.4 g/dL (12.0-16.0)
[2024-01-27] MEDS: ONDANSETRON 4 MG/2 ML VIAL IVP SCH (16:52)
[2024-01-28 00:14] LABS: HCT - HEMATOCRIT 24.9 % (37.0-47.0); HGB - HEMOGLOBIN 8.4 g/dL (12.0-16.0)
[2024-01-28 07:21] LABS: HCT - HEMATOCRIT 26.1 % (37.0-47.0); HGB - HEMOGLOBIN 8.4 g/dL (12.0-16.0)
--- NOTE | 2024-01-28 10:48 | PROVIDER PROGRESS NOTE ---
Subjective - Prog Note Date Prog Note Date: 01/28/24 Prog Note Time: 10:45 - Subjective Pt reports feeling: Worse Subjective: she c/o orthopnea that is worse at less 45 degrees. She can't chew bc so sob with that. But her 02 sats and pulse are stable with this. she feels like her heart rate is fast but it's in the 50s. no more fleeting needle like cp. She doesn't want me to update her daughter khadra right now. She has asked Khadra, her stepdaughter, and her son Teoodro (who is flying in from [place]) to come see her this afternoon. She would like to update her children on her condition, her diagnosis of the epithelioid cancer, and then would like either myself or Dr. Redman to be able to speak to her family after she tells him this. She is very firm and stating she does not want me to preempt this conversation and would rather tell them herself. The emesis has resolved. The nausea has resolved. But the anorexia is still significant. She cannot tell if she does not have an appetite or just the active eating makes her so short of breath that she does not want to eat. Stools are still black. Current Medications - Current Medications Current Medications: Active Medications Acetaminophen (Acetaminophen 325 Mg Tablet) 650 mg PO Q6H PRN PRN Reason: Pain 1 to 4, or Fever Last Admin: 01/28/24 02:47 Dose: 650 mg Benzonatate (Benzonatate 100 Mg Capsule) 200 mg PO Q8H PRN PRN Reason: Cough Cholecalciferol (Cholecalciferol 25 Mcg Tablet) 25 mcg PO DAILY [facility] Last Admin: 01/28/24 09:02 Dose: 25 mcg Doxazosin Mesylate (Doxazosin 1 Mg Tablet) 2 mg PO HS [facility] Last Admin: 01/27/24 21:07 Dose: 2 mg Ferrous Gluconate (Ferrous Gluconate 324 Mg Tablet) 648 mg PO DAILYWM [facility] Last Admin: 01/28/24 09:02 Dose: 648 mg Furosemide (Furosemide 20 Mg/2 Ml Vial) 20 mg IVP ONCE STA Stop: 01/28/24 10:44 Gabapentin (Gabapentin 100 Mg Capsule) 100 mg PO QPM [facility] Last Admin: 01/27/24 21:07 Dose: 100 mg Hydralazine HCl (Hydralazine 25 Mg Tablet) 50 mg PO QID [facility] Last Admin: 01/28/24 09:03 Dose: 50 mg Lactated Ringer's (Lr) 1,000 mls @ 100 mls/hr IV .Q10H [facility] Last Admin: 01/28/24 01:16 Dose: 100 mls/hr Metronidazole (Flagyl 500 Mg/100 Ml) 500 mg in 100 mls @ 100 mls/hr IV Q8H [facility] Last Admin: 01/28/24 09:00 Dose: 100 mls/hr Ceftriaxone Sodium 1 gm/ (Sodium Chloride) 100 mls @ 200 mls/hr IV Q24H [facility] Last Admin: 01/28/24 03:02 Dose: 100 mls/hr Insulin Human Lispro (Insulin Lispro 300 Unit/3 Ml Pen) 1 - 9 unit SUBQ 0800,1200,1700,2100 [facility]; Protocol Last Admin: 01/28/24 09:02 Dose: Not Given Isosorbide Mononitrate (Isosorbide Mononitrate Er 30 Mg Tablet) 120 mg PO DAILY [facility] Last Admin: 01/28/24 09:03 Dose: 120 mg Lactobacillus Rhamnosus (Lactobacillus Rhamnosus Gg Capsule) 1 cap PO DAILY [facility] Last Admin: 01/28/24 09:02 Dose: 1 cap Levothyroxine Sodium (Levothyroxine 100 Mcg Tablet) 100 mcg PO QDAC [facility] Last Admin: 01/28/24 06:02 Dose: 100 mcg Losartan Potassium (Losartan 50 Mg Tablet) 25 mg PO BID [facility] Last Admin: 01/28/24 09:03 Dose: 25 mg Metoprolol Succinate (Metoprolol Succinate 50 Mg Tablet) 50 mg PO BID [facility] Last Admin: 01/28/24 09:02 Dose: 50 mg Multi-Ingredient Ointment (Zinc Oxide 12% Oint 57 Gm Tube) 1 applic TOP PRN PRN PRN Reason: Skin Care Last Admin: 01/28/24 10:47 Dose: 1 applic Ondansetron HCl (Ondansetron 4 Mg/2 Ml Vial) 4 mg IVP Q6H [facility] Last Admin: 01/28/24 09:00 Dose: 4 mg Pantoprazole Sodium (Pantoprazole 40 Mg Vial) 40 mg IV BID [facility] Last Admin: 01/28/24 09:00 Dose: 40 mg Prochlorperazine Edisylate (Prochlorperazine 10 Mg/2 Ml Vial) 10 mg IVP Q6HR PRN PRN Reason: Nausea / Vomiting Saccharomyces Boulardii (Saccharomyces Boulardii 250 Mg Capsule) 250 mg PO BIDWM [facility] Last Admin: 01/28/24 09:04 Dose: 250 mg Sodium Chloride (Sodium Chloride Flush 0.9% 10 Ml Syringe) 10 ml IVP PRN PRN PRN Reason: NEEDED PER PROVIDER ORDERS Last Admin: 01/27/24 05:46 Dose: 10 ml Sodium Chloride (Sodium Chloride Flush 0.9% 10 Ml Syringe) 10 ml IVP 0100,0900,1700 [facility] Last Admin: 01/28/24 09:04 Dose: 10 ml Torsemide (Torsemide 20 Mg Tablet) 60 mg PO DAILY [facility] Last Admin: 01/28/24 09:03 Dose: 60 mg Ferrous Gluconate 2 tab PO DAILY 07/22/17 Levothyroxine Sodium 100 mcg PO QDAC 07/22/17 Nitroglycerin [Nitrostat] 0.4 mg PO Q5MIN PRN 07/22/17 Gabapentin 100 mg PO QPM 05/05/20 Sertraline [Zoloft] 25 mg PO DAILY 05/05/20 Cyanocobalamin (Vitamin B-12) [Cyanocobalamin Injection] 1,000 mcg IM .QMONTH 05/06/20 Isosorbide Mononitrate [Isosorbide Mononitrate ER] 120 mg PO DAILY 05/06/20 Famotidine [Pepcid] 20 mg PO BID 12/13/20 Pravastatin [Pravachol] 20 mg PO DAILY 12/13/20 Loperamide [Imodium] 1 tab PO Q6HR PRN 07/06/21 flaxseed oiL [Flaxseed Oil] 2 cap PO DAILY 07/06/21 Aspirin [[place] Aspirin EC] 81 mg PO DAILY 04/06/23 Ondansetron Odt [Zofran Odt] 4 mg TL Q4HR PRN 04/06/23 Acetaminophen [Acetaminophen Extra Strength] 1,000 mg PO Q8HR PRN 01/25/24 Acetaminophen/Diphenhydramine [Night Time Pain 25-500 mg Cplt] 2 tab PO HS PRN 01/25/24 Benzonatate 200 mg PO Q8HR PRN 01/25/24 Cholecalciferol [Vitamin D3] 25 mcg PO DAILY 01/25/24 Doxazosin Mesylate [Cardura] 2 mg PO HS 01/25/24 Guaifenesin/Dextromethorphan [Guaifenesin-Dm 100-10 mg/5 ml] 10 ml PO Q6HR PRN 01/25/24 Hydralazine HCl 50 mg PO QID 01/25/24 Insulin Glargine [Lantus Solostar] 10 unit SUBQ DAILY 01/25/24 Lactobacillus Combination No.4 [Probiotic] 1 each PO DAILY 01/25/24 Losartan Potassium 25 mg PO BID 01/25/24 Metoprolol Succinate [Toprol Xl] 50 mg PO BID 01/25/24 Torsemide [Soaanz] 60 mg PO DAILY 01/25/24 Triamcinolone Acetonide 1 applic TP BID PRN 01/25/24 Objective - Vital Signs/Intake & Output Reviewed Vital Signs: Yes Vital Signs: Vital Signs x48h Temp Pulse Resp BP Pulse Ox 01/28/24 07:31 36.5 C 55 L 18 120/53 L 97 Intake & Output: Intake & Output 01/25/24 01/26/24 01/27/24 01/28/24 23:59 23:59 23:59 23:59 Intake Total 20 2981.500 3985 1730 Output Total 650 1300 825 Balance 20 2331.500 2685 905 - Objective General Appearance: positive: No acute distress ( In spite of her complaints of orthopnea and shortness of breath she is lucid, able to carry on a full convers ation with full sentences without increased respiratory effort.), Alert Eyes Bilateral: positive: PERRL, EOMI ENT: positive: Pharynx nml Neck: positive: No JVD. negative: Stiff neck Respiratory: positive: No respiratory distress, Rales ( Minimal at bases. Partially clear with a cough. No use of accessory muscles.). negative: Wheezes, Rhonchi Cardiovascular: positive: Regular rate & rhythm, Systolic murmur Abdomen: positive: Non-tender, No organomegaly, Nml bowel sounds, No distention Skin: positive: Warm, Dry, Pallor Extremities: positive: Full ROM, No pedal edema Neurologic/Psychiatric: positive: Oriented x3, CN's nml (2-12), Motor nml ( Except for diffuse generalized weakness. She needs help sitting up. This is a significant deterioration from baseline where she is independent and ambulatory and needs only standby assist.) - Lab Results Fish Bones: 01/28/24 07:04 01/27/24 05:28 Other Labs: Lab Results x24hrs 01/28/24 01/28/24 01/28/24 Range/Units 07:25 07:04 00:10 Hgb 8.4 L 8.4 L (12.0-16.0) g/dL Hct 26.1 L 24.9 L (37.0-47.0) % POC Whole Bld Glucose 120 H (70 - 100) mg/dL 01/27/24 01/27/24 01/27/24 Range/Units 20:33 16:34 15:10 Hgb 8.4 L (12.0-16.0) g/dL Hct 25.7 L (37.0-47.0) % POC Whole Bld Glucose 160 H 138 H (70 - 100) mg/dL 01/27/24 Range/Units 11:04 Hgb (12.0-16.0) g/dL Hct (37.0-47.0) % POC Whole Bld Glucose 144 H (70 - 100) mg/dL Assessment/Plan - Problem List (1) Nausea & vomiting Impression: She was admitted because of symptomatic anemia. That was treated with 1 unit of blood, and she had subsequent nausea. Near emesis. No emesis since the evening of admission. But the nausea was very intense yesterday. That is gradually improved once I put her on a fixed scheduled dose of Zofran and added as needed Compazine. But she still has significant anorexia this morning. Partially due to lack of appetite but also partially due to dyspnea on exertion. We have already done a CT of the abdomen on admission. While she has diverticulosis without diverticulitis, there is no obstruction or tumor seen. Liver, pancreas, and spleen all appear clear Plan: I will Continue scheduled antiemetics with Compazine and Zofran advance diet to mechanical soft diet today. We are not going to do an EGD now I will continue proton pump inhibitors Qualifiers: Vomiting type: bilious vomiting Qualified Code(s): R11.14 - Bilious vomiting (2) Dyspnea at rest She has a hx of CAD with history of "congestive heart failure". The dyspnea has come and gone for over a year and has been associated with anemia. That escalera is discussed in #3. But she has had a recent CT of chest done for guerrier and that showed chest wall masses and lower lung fibrotic changes. 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 She feels like she has acute chf even though my objective exam refutes that on no tachypnea, controlled pulse, no JVD, minimal rales, and 02 sats that are normal. Last Echocardiogram done July 11, 2023 has an ejection fraction of 55 to 60%. Concentric left hypertrophy. Mildly dilated RV size and normal systolic function. Severe right atrial enlargement. Severe left atrial enlargement. No aortic stenosis. And mild tricuspid and mitral regurgitation. Chest x-ray April 06, 2023 shows cardiac enlargement and CHF. The same with the Jan 25 2024 chest x-ray. She is on torsemide 60 mg daily. She has received 1 unit of blood while here and is on her 60 mg of torsemide daily. With IV fluids, she is headed by 5922 cc since January 24. She does urinate adequately during the day but significantly fluid overloaded right now. So that dyspnea at rest that she is feeling with orthopnea may be due to our aggressive fluid resuscitation. Plan: I will start with ordering Lasix 20 mg IV push. If that does not work in the next few hours, I will then give Lasix 40 mg IV push. (3) Anemia requiring transfusions. Anemia is due to upper GI bleed from gastric polyps Impression: She does not have a history of gastric ulcers. She does have a history of reflux. Previous EGD had 2 large bleeding polyps. However those polyps were not retrieved and as such we do not know the pathology. There is a possibility that this patient has gastric neoplasm as the cause of her bleeding and nausea and vomiting. At this time we are just checking hemoglobin. Blood pressure was as low as 102 systolic yesterday. But today she is 120/57. Hemoglobin has stayed stable at every 8 hour check. Stool is still black but she says that is due to iron. Nausea has resolved, emesis has resolved. Plan: decreased hemoglobin check to daily No discharge today. We cannot discharge her until she is eating. Change proton pump inhibitors to p.o. from IV (4) History of gastric polyp Impression: unfortunately those polyps were not retrieved. So no pathology. possibility of gastric neoplasm remains in the differential as a cause of GI bleed with hematemesis. At this time, general surgery feels that we will work her up in the outpatient setting. She herself tells me that she is not a candidate for any surgery. When she broke her arm in 2017 it had to heal on its own because she was not a candidate for surgery. The EGDs and colonoscopies she has had in this time were considered high risk for her because of her age and heart status. I have reached out to her cardiology office. She sees Tommy Barajas MD in [place] through [facility] cardiology. I have asked his nurse to please send me the last 2 notes that he has for her to assess her cardiac risk if she does have to undergo an EGD. 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 Pathology unknown. Patient cannot tell me what type of cancer it was. 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 I am the first person to tell her that diagnosis. She said that she had not yet discussed the pathology reports with her primary care provider. I did ask her if she wanted me to wait until family could get her later this afternoon and we could all discuss this together but she says she has she did not want me to discuss this with family as of yet. Today she is asking that her stepdaughter and son come to the hospital. She again tells me that she does not want me to discuss this with him until she gives me permission. She would like to meet with them privately, answered her questions, and then she would like either myself or Dr. Redman to then address her children. Plan: Advance care planning conversation dictated under separate note (6) Controlled type 2 diabetes mellitus with complication of peripheral neuropathy, with long-term current use of insulin Impression: complication is that of peripheral neuropathy. Glucose yesterday was 120, 144, 138, 160. Today she is 120 and 144. She received 1 unit with lunch yesterday and 1 unit last night. This is sliding scale lispro. Plan: She is usually on Lantus at home. I am continuing glucose checks AC 3 times daily with sliding scale insulin. But no lantus for now will continue to watch her glucose in response to a regular diet starting at lunch, (7) Acute worsening of stage 3 chronic kidney disease Impression: baseline creatinine appears to be 1.7. She can get into the twos if she is dehydrated or having a GI bleed as seen in the medical record. With the December visit to the ER she was over 2. CT of abd and retroperitoneal US are neg for hydronephrosis. She continues to be 2.6. I attribute her sudden rise from acute blood loss anemia and dehydration. With hydration and blood transfusion, her creatinine has come down to 2.3 (but not baseline 1.). she is on her baseline torsemide from home. Plan: Lasix 20 mg IV push now and may be a second dose of 40 mg if there is not adequate output Continue to monitor creatinine daily Avoid nephrotoxic agents she is a patient of nephrology through [facility]. At this time I am not consulting them because I do not think there is much they can offer
[2024-01-28] MEDS: FUROSEMIDE 20 MG/2 ML VIAL IVP STA (10:55)
--- NOTE | 2024-01-28 11:16 | ADVANCE CARE PLANNING NOTE ---
Advance Care Planning - Planning Encounter Date: 01/28/24 Time: 11:14 Purpose: discussed goals of care Parties in Attendance: hospitalist and patient Decisional Capacity of the Patient: alert and oriented to person, place, time, and situation. 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 Unilateral and 1 breast, recurrence a few years later and second breast. She has had bilateral mastectomies. Recent recurrence of subcutaneous nodules on the right chest wall along the line of her mastectomy incision. Biopsy shows epithelioid type tumor. Complete workup and staging has not been done although CTs of abdomen and pelvis are negative for tumor. Recent chest wall CT done just prior to her biopsy is not available to me. - Encounter Subjective/Patient's Story: She was born and raised in [place] [facility]. With her first they moved to the [facility] and they stayed there a few years. They had 2 sons. From there they moved to [place]. By 1973 she her because of infidelity. 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 she met her second after about 10 years. He has a stepdaughter Caridad. They were happily for over 30 years. From [place], they moved to [place]. [place] [facility]. He in 2012. 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 That was one of the reasons they moved to [place] from [place]. But she has had a very full life. Very happy. [place] and misses her tremendously. In the last year she has felt changes not only in her body, but in her spirit. Her son of cancer and she still has not gotten over that grief. She regrets telling him to fight the cancer so much. Because she later found out that he was suffering tremendous amounts of pain and the only reason he was doing treatment was to make her happy. She carries quite a bit of guilt and regret for that. She moved to an assisted living facility in 2016 when she fell and broke her right arm. Unable to undergo surgery because of heart conditions. So she need a lot of help to dress, feed, and just live her life. She is a essential tremor and that is gotten worse as time is gone on. It was present in her siblings, and her father. This last year is taking a lot out of her. Mainly because of the loss of her son, but she feels like from a cardiac or lung status she is deteriorating. She is tired all the time, short of breath all the time. Appetite has gone down. But she felt like she was "coping" until this last week. She is just so tired of being tired. She has been worked up for anemia as the cause of her fatigue. She has documented gastric polyps. She also has a recent diagnosis of an epithelioid tumor on her chest wall. She already feels like she is not can to be off her treatment because of her age, and cardiac status. She is close to just "letting mother nature take its course". She is willing to hear opinions from an oncologist but in her heart of heart she knows that most likely her functional status will limit her ability to undergo treatment. when I reviewed the pathology report of the subcutaneous nodules of her right chest, she did not want me to share the news with her children. She has been very firm that she wants to tell them herself. They come today. After she tells him she will ask Dr. Redman or myself to answer their questions if they have any. Her D[employer]ABLE [employer] is her son Teodoro from [place], and her st epdaughter Caridad. She has a POLST form from 2019. I asked if she still wants to be DO NOT RESUSCITATE with Focus on comfort measures. She says that is unchanged. Objective/Medical Story: This is an elderly female who is admitted to us because of symptomatic anemia. She had a previous admission for that approximately 2 years ago. At that time documented gastric polyps but the pathologist were never submitted for pathology. She was on anticoagulation for atrial fibrillation. With this admission she is not anticoagulated. Significant progressive dyspnea and fatigue over the last few months resulted in a CBC being done. The CBC showed the anemia. Another transfusion of blood occurred in the ER and sent home. But then she returned with the same fatigue and shortness of breath. It is most likely an upper GI bleed with black stools. 1 episode of hematemesis. She has received 1 unit of blood. Although this is the current acute reason she is here, the background diseases of congestive heart failure and history of coronary artery disease are present. She also has this ongoing epithelioid tumor that is been recently diagnosed and what to do about that. On examination she is a fatigued appearing elderly female, well-groomed. No cachexia. Although she describes moderate shortness of breath at 45 degrees, she is not tachypneic or using her accessory muscles. O2 sats are 97% on room air. She has crackles at the bases. She needs help with getting out of bed. She has a moderate essential tremor with bilateral hand shaking and arm shaking. Voice is normal. Goals of Care: At this point her goals of care to just get through this acute episode. She is not in favor of doing an EGD or any surgical intervention "because of my heart disease". Once she has her meeting with children, she will then discuss with us whether she would like to proceed forward with at least an oncology opinion. She reiterates that she wishes to be DNR and to focus on comfort measures I have let her know that if she would like to return back to her assisted living facility, she may need a little help. She may be a hospice candidate. Code Status: Do Not Attempt Resuscitation Time spent on advance care plannin minutes
[2024-01-29 09:30] LABS: HCT - HEMATOCRIT 27.1 % (37.0-47.0); HGB - HEMOGLOBIN 8.7 g/dL (12.0-16.0); MEAN CORPUSCULAR HEMOGLOBIN 30.9 pg (27.0-31.0); MEAN CORPUSCULAR HGB CONC 32.1 g/dL (32.0-36.0); MEAN CORPUSCULAR VOLUME 96.1 fL (81.0-99.0); MEAN PLATELET VOLUME 9.9 fL (7.9-10.8); RED BLOOD COUNT 2.82 10^6/uL (4.20-5.40); RED CELL DISTRIBUTION WIDTH 14.3 % (12.0-15.0); WHITE BLOOD COUNT 8.9 x10^3/uL (4.8-10.8)
[2024-01-29 09:43] LABS: CALCIUM 8.3 mg/dL (8.5-10.3); CREATININE 2.1 mg/dL (0.6-1.3); MAGNESIUM 1.3 mg/dL (1.7-2.3); POTASSIUM 3.2 mmol/L (3.5-4.5)
[2024-01-29] MEDS: POTASSIUM CHLORIDE 20 MEQ/15 ML UDC PO ONE (11:59)
--- NOTE | 2024-01-29 19:42 | PROVIDER PROGRESS NOTE ---
Assessment/Plan - Problem List (1) Upper GI bleed Assessment/Plan: Since admission, patient has received 1 unit of packed red blood cells. She continues on pantoprazole 40 mg by mouth twice daily. Given her debility and past medical history, recommend conservative treatment with proton pump inhibitors for 8 weeks and then reassess for possible scope. Qualifiers: Vomiting type: bilious vomiting Qualified Code(s): R11.14 - Bilious vomiting (2) Dyspnea at rest Improved. After receiving diuretics yesterday patient's breathing has nearly returned to baseline. Echocardiogram performed on July 01, 2023 revealed an ejection fraction of 5060 percent with concentric left hypertrophy. RV is mildly dilated and has normal systolic function. The right atrium is severely enlarged. The left atrium is severely enlarged. There is no aortic stenosis. Positive mild tricuspid and mitral regurgitation. She received 60 mg of torsemide daily. (3) Anemia requiring transfusions. Anemia is due to upper GI bleed from gastric polyps Impression: She has a history of gastric polyps that were not retrieved on prior endoscopy. It is possible that she has bleeding from the knees of neoplasm, however, other etiologies such as gastric ulcers cannot be excluded at this time. (4) History of gastric polyp Impression: Conservative treatment at this time. 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 The patient has been informed of her pathology result. (6) Controlled type 2 diabetes mellitus with complication of peripheral neuropathy, with long-term current use of insulin Impression: Continue sliding scale insulin (7) Acute worsening of stage 3 chronic kidney disease Impression: Avoid nephrotoxic agents.Baseline creatinine is 1.7. Continue to monitor. (8) Disposition Patient was evaluated by PT/OT today and the recommendation is for patient to go to a penitentiary facility. Patient is medically cleared for penitentiary facility. - Current Meds Current Meds: Current Medications Generic Name Dose Route Start Last Admin Trade Name Freq PRN Reason Stop Dose Admin Acetaminophen 650 mg 01/26/24 00:10 01/28/24 19:43 Acetaminophen 325 Mg Tablet PO 650 mg Q6H PRN Administration Pain 1 to 4, or Fever Cholecalciferol 25 mcg 01/26/24 09:00 01/29/24 08:41 Cholecalciferol 25 Mcg Tablet PO 25 mcg DAILY FLORECITA Administration Doxazosin Mesylate 2 mg 01/26/24 21:00 01/28/24 21:31 Doxazosin 1 Mg Tablet PO 2 mg HS FLORECITA Administration Ferrous Gluconate 648 mg 01/26/24 09:00 01/29/24 08:41 Ferrous Gluconate 324 Mg Tablet PO 648 mg DAILYWM FLORECITA Administration Gabapentin 100 mg 01/26/24 21:00 01/28/24 21:30 Gabapentin 100 Mg Capsule PO 100 mg QPM FLORECITA Administration Hydralazine HCl 50 mg 01/26/24 09:00 01/29/24 17:12 Hydralazine 25 Mg Tablet PO 50 mg QID FLORECITA Administration Insulin Human Lispro 1 - 9 unit 01/26/24 08:00 01/29/24 17:12 Insulin Lispro 300 Unit/3 Ml Pen SUBQ 1 unit 0800,1200,1700,2100 FLORECITA Administration Protocol Isosorbide Mononitrate 120 mg 01/26/24 09:00 01/29/24 08:42 Isosorbide Mononitrate Er 30 Mg Tablet PO 120 mg DAILY FLORECITA Administration Lactobacillus Rhamnosus 1 cap 01/26/24 09:00 01/29/24 08:42 Lactobacillus Rhamnosus Gg Capsule PO 1 cap DAILY FLORECITA Administration Losartan Potassium 25 mg 01/26/24 09:00 01/29/24 08:42 Losartan 50 Mg Tablet PO 25 mg BID FLORECITA Administration Metoprolol Succinate 50 mg 01/26/24 09:00 01/29/24 08:42 Metoprolol Succinate 50 Mg Tablet PO 50 mg BID FLORECITA Administration Multi-Ingredient Ointment 1 applic 01/26/24 10:50 01/29/24 14:02 Zinc Oxide 12% Oint 57 Gm Tube TOP 1 applic PRN PRN Administration Skin Care Ondansetron HCl 4 mg 01/27/24 15:00 01/29/24 14:01 Ondansetron 4 Mg/2 Ml Vial IVP 4 mg Q6H FLORECITA Administration Saccharomyces Boulardii 250 mg 01/26/24 08:00 01/29/24 17:12 Saccharomyces Boulardii 250 Mg Capsule PO 250 mg BIDWM FLORECITA Administration Sodium Chloride 10 ml 01/26/24 00:10 01/27/24 05:46 Sodium Chloride Flush 0.9% 10 Ml Syringe IVP 10 ml PRN PRN Administration NEEDED PER PROVIDER ORDERS Sodium Chloride 10 ml 01/26/24 01:00 01/29/24 17:50 Sodium Chloride Flush 0.9% 10 Ml Syringe IVP 10 ml 0100,0900,1700 FLOREC[facility] Administration Torsemide 60 mg 01/26/24 09:00 01/29/24 08:41 Torsemide 20 Mg Tablet PO 60 mg DAILY FLORECITA Administration - Lab Result Fish Bone Diagrams: 01/29/24 09:24 01/29/24 09:24 - Additional Planning My Orders: My Active Orders 01/29/24 Evaluate and Treat OT [OT] Routine Evaluate and Treat PT [PT] Routine 01/29/24 21:00 Pantoprazole [Protonix] 40 mg PO BID 01/30/24 07:00 Levothyroxine [Synthroid] 50 mcg PO QDAC Subjective - Subjective Patient Reports: Other (Alert. Denies chest pain and abdominal pain she reports her breathing is markedly improved. She has no other complaints at this time.) Objective Vital Signs: Vital Signs - 24 hr 01/28/24 01/29/24 01/29/24 20:16 00:35 06:20 Temperature 36.8 C 36.6 C 36.6 C Heart Rate [55] 69 62 57 L Heart Rate [ Supine] Respiratory 20 24 18 Rate Blood Pressure [Supine] Blood Pressure 104/50 L [left leg] Blood Pressure 139/61 H 117/49 L [right leg] O2 Saturation 95 96 95 01/29/24 01/29/24 01/29/24 08:33 13:00 15:35 Temperature 37.0 C 36.7 C Heart Rate [55] 60 63 Heart Rate [ 71 Supine] Respiratory 20 20 Rate Blood Pressure 118/59 L [Supine] Blood Pressure [left leg] Blood Pressure 135/53 H 125/52 L [right leg] O2 Saturation 95 97 01/29/24 01/29/24 15:36 17:29 Temperature 37.0 C Heart Rate [55] 67 Heart Rate [ 71 Supine] Respiratory 18 Rate Blood Pressure 118/59 L [Supine] Blood Pressure [left leg] Blood Pressure 141/65 H [right leg] O2 Saturation 95 Oxygen O2 Source Room air I&O (Last 24 Hrs): Intake and Output Totals x24h 01/27/24 01/28/24 01/29/24 23:59 23:59 23:59 Intake Total 3985 3810 1050 Output Total 1300 1675 850 Balance 2685 2135 200 General: Alert, Oriented x3, No acute distress HEENT: Atraumatic Neck: Supple, No JVD, No thyromegaly Neuro: Alert, Non Focal Cardiovascular: Other (Positive S1-S2 no extra heart sounds.) Respiratory: Other (Good air exchange in all lung stewart no wheezing no crackles.) Abdomen: Other (Soft nontender nondistended positive bowel sounds) Extremities: No cyanosis, Other Skin: No rashes - Results Results: Laboratory Results WBC 8.9 x10^3/uL (4.8-10.8) 01/29/24 09:24 RBC 2.82 10^6/uL (4.20-5.40) L 01/29/24 09:24 Hgb 8.7 g/dL (12.0-16.0) L 01/29/24 09:24 Hct 27.1 % (37.0-47.0) L 01/29/24 09:24 MCV 96.1 fL (81.0-99.0) 01/29/24 09:24 MCH 30.9 pg (27.0-31.0) 01/29/24 09:24 MCHC 32.1 g/dL (32.0-36.0) 01/29/24 09:24 RDW 14.3 % (12.0-15.0) 01/29/24 09:24 Plt Count 116 10^3/uL (130-450) L 01/29/24 09:24 MPV 9.9 fL (7.9-10.8) 01/29/24 09:24 Neut # (Auto) 4.2 10^3/uL (1.5-6.6) 01/26/24 05:21 Lymph # (Auto) 1.3 10^3/uL (1.5-3.5) L 01/26/24 05:21 [place] # (Auto) 0.6 10^3/uL (0.0-1.0) 01/26/24 05:21 Eos # (Auto) 0.1 10^3/uL (0.0-0.7) 01/26/24 05:21 Baso # (Auto) 0.0 10^3/uL (0.0-0.1) 01/26/24 05:21 Absolute Nucleated RBC 0.00 x10^3/uL 01/26/24 05:21 Nucleated RBC % 0.0 /100WBC 01/26/24 05:21 PT 12.9 secs (9.9-12.6) H 01/25/24 21:00 INR 1.2 (0.8-1.2) 01/25/24 21:00 Sodium 135 mmol/L (135-145) 01/29/24 09:24 Potassium 3.2 mmol/L (3.5-4.5) L 01/29/24 09:24 Chloride 101 mmol/L (101-111) 01/29/24 09:24 Carbon Dioxide 27 mmol/L (21-32) 01/29/24 09:24 Anion Gap 7.0 (6-13) 01/29/24 09:24 BUN 44 mg/dL (6-20) H 01/29/24 09:24 Creatinine 2.1 mg/dL (0.6-1.3) H 01/29/24 09:24 Estimated GFR (MDRD) 22 (>89) L 01/29/24 09:24 Glucose 212 mg/dL (74-104) H 01/29/24 09:24 POC Whole Bld Glucose 149 mg/dL (70 - 100) H 01/29/24 16:30 Estimat Average Glucose 120 mg/dL (70-100) H 01/26/24 01:41 Hemoglobin A1c % 5.8 % (4.27-6.07) 01/26/24 01:41 Calcium 8.3 mg/dL (8.5-10.3) L 01/29/24 09:24 Phosphorus 3.0 mg/dL (2.5-5.0) 01/29/24 09:24 Magnesium 1.3 mg/dL (1.7-2.3) L 01/29/24 09:24 Iron 51 ug/dL (50-212) 01/27/24 05:28 TIBC 171 ug/dL (250-450) L 01/27/24 05:28 % Saturation 30 % (20-50) 01/27/24 05:28 Transferrin 122 mg/dL (203-362) L 01/27/24 05:28 Total Bilirubin 1.1 mg/dL (0.2-1.0) H 01/26/24 05:21 AST 7 IU/L (10-42) L 01/26/24 05:21 ALT 4 IU/L (10-60) L 01/26/24 05:21 Alkaline Phosphatase 76 IU/L (42-121) 01/26/24 05:21 Total Protein 5.9 g/dL (6.4-8.9) L 01/26/24 05:21 Albumin 3.1 g/dL (3.2-5.5) L 01/26/24 05:21 Globulin 2.8 g/dL (2.1-4.2) 01/26/24 05:21 Albumin/Globulin Ratio 1.1 (1.0-2.2) 01/26/24 05:21 Triglycerides 94 mg/dL (48-352) 01/26/24 01:41 Cholesterol 113 mg/dL (-200) 01/26/24 01:41 LDL Cholesterol, Calc 58 mg/dL (-129) 01/26/24 01:41 VLDL Cholesterol 19 mg/dL 01/26/24 01:41 HDL Cholesterol 36 mg/dL (60-) L 01/26/24 01:41 LDL/HDL Ratio 1.6 (<4.4) 01/26/24 01:41 Cholesterol/HDL Ratio 3.1 (<4.4) 01/26/24 01:41 TSH 0.35 uIU/mL (0.34-5.60) 01/26/24 15:45 Stl Occult Blood (IFOB) POSITIVE (NEGATIVE) A 01/26/24 14:15 Blood Type AB POSITIVE 01/25/24 21:00 Antibody Screen NEGATIVE 01/25/24 21:00 Crossmatch IS Only See Detail 01/25/24 21:00 - Procedures Procedures: Procedures EXCISION OF ASCENDING COLON, ENDO (09/29/21) EXCISION OF ASCENDING COLON, ENDO, DIAGN (12/13/20) EXCISION OF DESCENDING COLON, ENDO (09/29/21) EXCISION OF RIGHT LARGE INTESTINE, ENDO (09/29/21) EXCISION OF SIGMOID COLON, ENDO (12/13/20) EXCISION OF STOMACH, ENDO (12/13/20) EXCISION OF STOMACH, PYLORUS, ENDO, DIAGN (12/13/20) EXCISION OF TRANSVERSE COLON, ENDO (09/29/21) INSERTION OF INFUSION DEVICE INTO R ATRIUM, PERC APPROACH (08/09/17) TRANSFUSE NONAUT RED BLOOD CELLS IN PERIPH VEIN, PERC (07/22/17)
[2024-01-29] MEDS: POTASSIUM CHLORIDE 20 MEQ/15 ML UDC PO SCH (21:04)
[2024-01-29] MEDS: MAGNESIUM OXIDE 400 MG TABLET PO SCH (21:05)
[2024-01-29] MEDS: PANTOPRAZOLE 40 MG TABLET PO SCH (21:05)
[2024-01-30 06:12] LABS: CALCIUM 8.3 mg/dL (8.5-10.3); CREATININE 2.1 mg/dL (0.6-1.3); POTASSIUM 3.5 mmol/L (3.5-4.5)
[2024-01-30] MEDS: LEVOTHYROXINE 25 MCG TABLET PO SCH (06:22)
[2024-01-30] MEDS: GABAPENTIN 100 MG CAPSULE PO SCH (11:48)
--- NOTE | 2024-01-30 22:08 | PROVIDER PROGRESS NOTE ---
Assessment/Plan - Problem List (1) Upper GI bleed Assessment/Plan: Since admission, patient has received 1 unit of packed red blood cells. She continues on pantoprazole 40 mg by mouth twice daily. Given her debility and past medical history, recommend conservative treatment with proton pump inhibitors for 8 weeks and then reassess for possible scope. Hematocrit remains stable at 27.1. Qualifiers: Vomiting type: bilious vomiting Qualified Code(s): R11.14 - Bilious vomiting (2) Dyspnea at rest Improved. After receiving diuretics yesterday patient's breathing has nearly returned to baseline. Echocardiogram performed on July 01, 2023 revealed an ejection fraction of 5060 percent with concentric left hypertrophy. RV is mildly dilated and has normal systolic function. The right atrium is severely enlarged. The left atrium is severely enlarged. There is no aortic stenosis. Positive mild tricuspid and mitral regurgitation. She received 60 mg of torsemide daily. (3) Anemia requiring transfusions. Anemia is due to upper GI bleed from gastric polyps Impression: She has a history of gastric polyps that were not retrieved on prior endoscopy. It is possible that she has bleeding from the knees of neoplasm, however, other etiologies such as gastric ulcers cannot be excluded at this time. (4) History of gastric polyp Impression: Conservative treatment at this time. 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 The patient has been informed of her pathology result. (6) Controlled type 2 diabetes mellitus with complication of peripheral neuropathy, with long-term current use of insulin Impression: Continue sliding scale insulin (7) Acute worsening of stage 3 chronic kidney disease Impression: Avoid nephrotoxic agents.Baseline creatinine is 1.7. Current creatinine is 2.1. Continue to monitor. (8) Disposition Patient was evaluated by PT/OT today and the recommendation is for patient to go to a correction facility. Patient is medically cleared for correction facility. - Current Meds Current Meds: Current Medications Generic Name Dose Route Start Last Admin Trade Name Freq PRN Reason Stop Dose Admin Acetaminophen 650 mg 01/26/24 00:10 01/30/24 17:17 Acetaminophen 325 Mg Tablet PO 650 mg Q6H PRN Administration Pain 1 to 4, or Fever Cholecalciferol 25 mcg 01/26/24 09:00 01/30/24 08:56 Cholecalciferol 25 Mcg Tablet PO 25 mcg DAILY FLORECITA Administration Doxazosin Mesylate 2 mg 01/26/24 21:00 01/30/24 21:28 Doxazosin 1 Mg Tablet PO Not Given HS FLORECITA Ferrous Gluconate 648 mg 01/26/24 09:00 01/30/24 08:56 Ferrous Gluconate 324 Mg Tablet PO 648 mg DAILYWM FLORECITA Administration Gabapentin 100 mg 01/30/24 12:00 01/30/24 21:24 Gabapentin 100 Mg Capsule PO 100 mg BID FLORECITA Administration Hydralazine HCl 50 mg 01/26/24 09:00 01/30/24 21:40 Hydralazine 25 Mg Tablet PO Not Given QID FLORECITA Insulin Human Lispro 1 - 9 unit 01/26/24 08:00 01/30/24 21:24 Insulin Lispro 300 Unit/3 Ml Pen SUBQ 3 unit 0800,1200,1700,2100 [facility] Administration Protocol Isosorbide Mononitrate 120 mg 01/26/24 09:00 01/30/24 08:55 Isosorbide Mononitrate Er 30 Mg Tablet PO 120 mg DAILY FLORECITA Administration Lactobacillus Rhamnosus 1 cap 01/26/24 09:00 01/30/24 08:55 Lactobacillus Rhamnosus Gg Capsule PO 1 cap DAILY [facility] Administration Levothyroxine Sodium 50 mcg 01/30/24 07:00 01/30/24 06:22 Levothyroxine 25 Mcg Tablet PO 50 mcg QDAC FLORECITA Administration Losartan Potassium 25 mg 01/26/24 09:00 01/30/24 21:52 Losartan 50 Mg Tablet PO 25 mg BID FLORECITA Administration Magnesium Oxide 400 mg 01/29/24 20:00 01/30/24 08:56 Magnesium Oxide 400 Mg Tablet PO 400 mg DAILYWM FLORECITA Administration Metoprolol Succinate 50 mg 01/26/24 09:00 01/30/24 21:53 Metoprolol Succinate 50 Mg Tablet PO 50 mg BID FLORECITA Administration Multi-Ingredient Ointment 1 applic 01/26/24 10:50 01/30/24 14:11 Zinc Oxide 12% Oint 57 Gm Tube TOP 1 applic PRN PRN Administration Skin Care Ondansetron HCl 4 mg 01/27/24 15:00 01/30/24 21:24 Ondansetron 4 Mg/2 Ml Vial IVP 4 mg Q6H FLORECITA Administration Pantoprazole Sodium 40 mg 01/29/24 21:00 01/30/24 21:24 Pantoprazole 40 Mg Tablet PO 40 mg BID FLORECITA Administration Potassium Chloride 40 meq 01/29/24 20:00 01/30/24 08:55 Potassium Chloride 20 Meq/15 Ml Udc PO 40 meq DAILYWM FLORECITA Administration Saccharomyces Boulardii 250 mg 01/26/24 08:00 01/30/24 17:08 Saccharomyces Boulardii 250 Mg Capsule PO 250 mg BIDWM FLORECITA Administration Sodium Chloride 10 ml 01/26/24 00:10 01/27/24 05:46 Sodium Chloride Flush 0.9% 10 Ml Syringe IVP 10 ml PRN PRN Administration NEEDED PER PROVIDER ORDERS Sodium Chloride 10 ml 01/26/24 01:00 01/30/24 17:08 Sodium Chloride Flush 0.9% 10 Ml Syringe IVP 10 ml 0100,0900,1700 FLOR[facility]ITA Administration Torsemide 60 mg 01/26/24 09:00 01/30/24 08:56 Torsemide 20 Mg Tablet PO 60 mg DAILY FLORECITA Administration - Lab Result Fish Bone Diagrams: 01/31/24 05:36 01/31/24 05:36 - Additional Planning My Orders: My Active Orders 01/30/24 07:00 Levothyroxine [Synthroid] 50 mcg PO QDAC 01/30/24 12:00 Gabapentin [Neurontin] 100 mg PO BID Subjective - Subjective Patient Reports: Other (Alert. Denies chest pain dyspnea and abdominal pain. Complaining of bilateral foot pain that is chronic.) Objective Vital Signs: Vital Signs - 24 hr 01/29/24 01/30/24 01/30/24 23:57 05:02 08:11 Temperature 36.5 C 36.6 C 37.2 C Heart Rate [ 78 Brachial] Heart Rate [ 83 81 Posterior tibial] Respiratory 18 20 20 Rate Blood Pressure 119/57 L 122/48 L 117/61 [Right Ankle] O2 Saturation 96 95 93 01/30/24 01/30/24 01/30/24 12:41 14:05 15:51 Temperature 37.1 C 36.8 C Heart Rate [ 70 70 Brachial] Heart Rate [ 75 Posterior tibial] Respiratory 20 16 Rate Blood Pressure 109/54 L 129/48 L 154/65 H [Right Ankle] O2 Saturation 97 95 01/30/24 20:27 Temperature 36.8 C Heart Rate [ Brachial] Heart Rate [ 65 Posterior tibial] Respiratory 16 Rate Blood Pressure 103/41 L [Right Ankle] O2 Saturation 96 Oxygen O2 Source Room air I&O (Last 24 Hrs): Intake and Output Totals x24h 01/28/24 01/29/24 01/30/24 23:59 23:59 23:59 Intake Total 3810 1530 1260 Output Total 1675 1050 900 Balance 2135 480 360 General: Alert, Oriented x3, No acute distress HEENT: Atraumatic Neck: No JVD Neuro: Alert, Non Focal Cardiovascular: Other (Positive S1-S2 no extra heart sounds.) Respiratory: Other (Good air exchange in all lung stewart no wheezing no crackles.) Abdomen: Other (Soft nontender nondistended positive bowel sounds.) Extremities: No cyanosis, No edema Skin: No rashes - Results Results: Laboratory Results WBC 8.9 x10^3/uL (4.8-10.8) 01/29/24 09:24 RBC 2.82 10^6/uL (4.20-5.40) L 01/29/24 09:24 Hgb 8.7 g/dL (12.0-16.0) L 01/29/24 09:24 Hct 27.1 % (37.0-47.0) L 01/29/24 09:24 MCV 96.1 fL (81.0-99.0) 01/29/24 09:24 MCH 30.9 pg (27.0-31.0) 01/29/24 09:24 MCHC 32.1 g/dL (32.0-36.0) 01/29/24 09:24 RDW 14.3 % (12.0-15.0) 01/29/24 09:24 Plt Count 116 10^3/uL (130-450) L 01/29/24 09:24 MPV 9.9 fL (7.9-10.8) 01/29/24 09:24 Neut # (Auto) 4.2 10^3/uL (1.5-6.6) 01/26/24 05:21 Lymph # (Auto) 1.3 10^3/uL (1.5-3.5) L 01/26/24 05:21 [place] # (Auto) 0.6 10^3/uL (0.0-1.0) 01/26/24 05:21 Eos # (Auto) 0.1 10^3/uL (0.0-0.7) 01/26/24 05:21 Baso # (Auto) 0.0 10^3/uL (0.0-0.1) 01/26/24 05:21 Absolute Nucleated RBC 0.00 x10^3/uL 01/26/24 05:21 Nucleated RBC % 0.0 /100WBC 01/26/24 05:21 PT 12.9 secs (9.9-12.6) H 01/25/24 21:00 INR 1.2 (0.8-1.2) 01/25/24 21:00 Sodium 134 mmol/L (135-145) L 01/30/24 05:25 Potassium 3.5 mmol/L (3.5-4.5) 01/30/24 05:25 Chloride 101 mmol/L (101-111) 01/30/24 05:25 Carbon Dioxide 25 mmol/L (21-32) 01/30/24 05:25 Anion Gap 8.0 (6-13) 01/30/24 05:25 BUN 38 mg/dL (6-20) H 01/30/24 05:25 Creatinine 2.1 mg/dL (0.6-1.3) H 01/30/24 05:25 Estimated GFR (MDRD) 22 (>89) L 01/30/24 05:25 Glucose 112 mg/dL (74-104) H 01/30/24 05:25 POC Whole Bld Glucose 201 mg/dL (70 - 100) H 01/30/24 20:48 Estimat Average Glucose 120 mg/dL (70-100) H 01/26/24 01:41 Hemoglobin A1c % 5.8 % (4.27-6.07) 01/26/24 01:41 Calcium 8.3 mg/dL (8.5-10.3) L 01/30/24 05:25 Phosphorus 3.0 mg/dL (2.5-5.0) 01/29/24 09:24 Magnesium 1.3 mg/dL (1.7-2.3) L 01/29/24 09:24 Iron 51 ug/dL (50-212) 01/27/24 05:28 TIBC 171 ug/dL (250-450) L 01/27/24 05:28 % Saturation 30 % (20-50) 01/27/24 05:28 Transferrin 122 mg/dL (203-362) L 01/27/24 05:28 Total Bilirubin 1.1 mg/dL (0.2-1.0) H 01/26/24 05:21 AST 7 IU/L (10-42) L 01/26/24 05:21 ALT 4 IU/L (10-60) L 01/26/24 05:21 Alkaline Phosphatase 76 IU/L (42-121) 01/26/24 05:21 Total Protein 5.9 g/dL (6.4-8.9) L 01/26/24 05:21 Albumin 3.1 g/dL (3.2-5.5) L 01/26/24 05:21 Globulin 2.8 g/dL (2.1-4.2) 01/26/24 05:21 Albumin/Globulin Ratio 1.1 (1.0-2.2) 01/26/24 05:21 Triglycerides 94 mg/dL (48-352) 01/26/24 01:41 Cholesterol 113 mg/dL (-200) 01/26/24 01:41 LDL Cholesterol, Calc 58 mg/dL (-129) 01/26/24 01:41 VLDL Cholesterol 19 mg/dL 01/26/24 01:41 HDL Cholesterol 36 mg/dL (60-) L 01/26/24 01:41 LDL/HDL Ratio 1.6 (<4.4) 01/26/24 01:41 Cholesterol/HDL Ratio 3.1 (<4.4) 01/26/24 01:41 TSH 0.35 uIU/mL (0.34-5.60) 01/26/24 15:45 Stl Occult Blood (IFOB) POSITIVE (NEGATIVE) A 01/26/24 14:15 Blood Type AB POSITIVE 01/25/24 21:00 Antibody Screen NEGATIVE 01/25/24 21:00 Crossmatch IS Only See Detail 01/25/24 21:00 - Procedures Procedures: Procedures EXCISION OF ASCENDING COLON, ENDO (09/29/21) EXCISION OF ASCENDING COLON, ENDO, DIAGN (12/13/20) EXCISION OF DESCENDING COLON, ENDO (09/29/21) EXCISION OF RIGHT LARGE INTESTINE, ENDO (09/29/21) EXCISION OF SIGMOID COLON, ENDO (12/13/20) EXCISION OF STOMACH, ENDO (12/13/20) EXCISION OF STOMACH, PYLORUS, ENDO, DIAGN (12/13/20) EXCISION OF TRANSVERSE COLON, ENDO (09/29/21) INSERTION OF INFUSION DEVICE INTO R ATRIUM, PERC APPROACH (08/09/17) TRANSFUSE NONAUT RED BLOOD CELLS IN PERIPH VEIN, PERC (07/22/17)
[2024-01-31 05:55] LABS: HCT - HEMATOCRIT 24.5 % (37.0-47.0); HGB - HEMOGLOBIN 7.9 g/dL (12.0-16.0); MEAN CORPUSCULAR HEMOGLOBIN 30.7 pg (27.0-31.0); MEAN CORPUSCULAR HGB CONC 32.2 g/dL (32.0-36.0); MEAN CORPUSCULAR VOLUME 95.3 fL (81.0-99.0); MEAN PLATELET VOLUME 10.5 fL (7.9-10.8); RED BLOOD COUNT 2.57 10^6/uL (4.20-5.40); RED CELL DISTRIBUTION WIDTH 14.4 % (12.0-15.0); WHITE BLOOD COUNT 8.6 x10^3/uL (4.8-10.8)
[2024-01-31 06:14] LABS: CALCIUM 8.1 mg/dL (8.5-10.3); CREATININE 2.5 mg/dL (0.6-1.3); POTASSIUM 3.5 mmol/L (3.5-4.5)
[2024-01-31 07:55] VITALS: O2SAT 98
--- NOTE | 2024-01-31 08:51 | Discharge Plan ---
Discharge Plan for SNF / [facility] - Discharge Plan And Transition Orders Problem Reviewed?: Yes Disposition: 03 SNF DC/Xfer Condition: Stable Allergies and Adverse Reactions: Allergies Allergy/AdvReac Type Severity Reaction Status Date / Time amlodipine Allergy Unknown Verified 01/25/24 20:36 atorvastatin Allergy Unknown Verified 01/25/24 20:36 sitagliptin [From Januvia] Allergy Unknown Verified 01/25/24 20:36 albuterol AdvReac Unknown TREMMORS Verified 01/25/24 20:36 codeine AdvReac Unknown Nausea Verified 01/25/24 20:36 morphine AdvReac Unknown Nausea Verified 01/25/24 20:36 Sulfa (Sulfonamide AdvReac Unknown Nausea Verified 01/25/24 20:36 Antibiotics) ezetimibe [From Zetia] AdvReac Unknown Verified 01/25/24 20:36 rosuvastatin [From Crestor] AdvReac Unknown Verified 01/25/24 20:36 all codeine derivatives Allergy Unknown Uncoded 01/25/24 20:36 cardiac med starts with "Z" Allergy Unknown Uncoded 01/25/24 20:36 Health Concerns: Patti Alejandre is a 89-year-old woman who was admitted on January 26, 2024 with dark stool and coffee-ground emesis. She was admitted to the hospital as an inpatient and was transfused 1 unit of packed red blood cells. She most likely has a upper GI hemorrhage due to an ulcer, bleeding polyps or possibly a mass. We discussed performing an endoscopy procedure versus conservative care with proton pump inhibitors and patient opted for conservative care. Proton pump inhibitor should be continued for 8 weeks then Patti should be reassessed for possible endoscopy versus continued conservative management. Her hospital course was complicated by volume overload due to transfusion of blood and she required diuretics to improve her respiratory status. She was recently diagnosed with a chest wall mass and was biopsied on January 21, 2024. Biopsy results revealed an epithelioid neoplasm. She has a past medical history significant for bilateral mastectomies for breast cancer.Patient was informed of this diagnosis during her hospitalization. She is being discharged to a intermediate facility for rehab with goal of improving strength and balance. During this hospitalization her dose of gabapentin was increased to 200 mg at bedtime with improvement in her foot pain. Her dose can be increased as tolerated and should be dosed according to her estimated glomerular filtration rate. During this hospitalization, her diuretic has been discontinued due to an increase in her baseline creatinine from 1.7 to 2.5. Recommend reinitiating diuretic if appropriate. Glargine was also discontinued due to low blood sugars. Patient continues on a sliding scale. Famotidine was discontinued due to the fact that she is on proton pump inhibitors. Her dose of Synthroid was decreased to [address] Goncalves's request. Plan of Treatment: 1. Continue all medications as prescribed. 2.Follow-up with Dr. Goncalves in 4-8 weeks. Care Goals: Goal of care is to undergo rehab for strength and balance with goal of returning to independent living at assisted living facility. Assessment: (1) Upper GI bleed Assessment/Plan: Since admission, patient has received 1 unit of packed red blood cells. She continues on pantoprazole 40 mg by mouth twice daily. Given her debility and past medical history, recommend conservative treatment with proton pump inhibitors for 8 weeks and then reassess for possible endoscopy versus contining conservative management. Qualifiers: Vomiting type: bilious vomiting Qualified Code(s): R11.14 - Bilious vomiting (2) Dyspnea at rest Improved. After receiving diuretics yesterday patient's breathing has nearly returned to baseline. Echocardiogram performed on July 01, 2023 revealed an ejection fraction of 5060 percent with concentric left hypertrophy. RV is mildly dilated and has normal systolic function. The right atrium is severely enlarged. The left atrium is severely enlarged. There is no aortic stenosis. Positive mild tricuspid and mitral regurgitation. She received 60 mg of torsemide daily and appears to be euvolemic. Her diuretic has been discontinued due to the increase in her creatinine. (3) Anemia requiring transfusions. Anemia is due to upper GI bleed from gastric polyps Impression: She has a history of gastric polyps that were not retrieved on prior endoscopy. It is possible that she has bleeding from the gastric polyps, however, other etiologies such as gastric ulcers or neoplasm cannot be excluded at this time. (4) History of gastric polyp Impression: Conservative treatment at this time. 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 The patient has been informed of her pathology result. (6) Controlled type 2 diabetes mellitus with complication of peripheral neuropathy, with long-term current use of insulin Impression: Continue sliding scale insulin (7) Acute worsening of stage 3 chronic kidney disease Impression: Avoid nephrotoxic agents.Baseline creatinine is 1.7. Continue to monitor. - SNF / [facility] Transition Orders Admit to (Facility): [facility] Discharge Diagnosis: (1) Upper GI bleed (2) Dyspnea at rest (3) Anemia requiring transfusions. Anemia is due to upper GI bleed from gastric polyps (4) History of gastric polyp (5) Malignant neoplasm uncertain whether primary or metastatic (6) Controlled type 2 diabetes mellitus with complication of peripheral neuropathy, with long-term current use of insulin (7) Acute worsening of stage 3 chronic kidney disease Medicare Certification Statement: I certify that Post Hospital intermediate care is medically necessary on a continuing basis for any of the conditions for which she/he is receiving care during hospitalization. Notify PCP of admission and forward orders to primary provider for signature. Weight on admission and: Weekly Other Notification Orders: Call PCP immediately if patient develops dyspnea, chest pain/tightness or edema. House Bowel Program: Yes Additional Bowel Program Orders: If no BM after 2 days, nurse may give M.O.M. 30ml PO PRN and/or ducolax Supp 1 ND and/or GEMA 250mg P.O., and/or senna 1-2 tabs PO. On day 3 nurse may give repeat above order until residents constipation is resolved. Annual Influenza Vaccine (between May 24 and December 21): Yes Two-step PPD per [facility] [phone] or approved exception documents: Yes Medication Orders: PLEASE REFER TO THE DISCHARGE MEDICATION LIST. Insulin Orders?: Yes - Medications New Prescriptions: Insulin Lispro [Humalog Kwikpen U-100] 1 - 9 unit SUBQ 0800,1200,1700,2100 #3 ml Gabapentin [Neurontin] 100 mg PO BID #60 cap Pantoprazole [Protonix] 40 mg PO BID #60 tab Levothyroxine [Synthroid] 88 mcg PO QDAC #30 tab - Diet Type: Geriatric [facility] Liquids: Thin May have monthly special meal: Yes - Therapies | Activity Therapy: Evaluation | Treat if indicated: PT, OT Rehabilitation Potential: Maximize functional status, Return to independent living Activity: Activity as Tolerated Weight Bearing: Full Weight Assistance Devices: Walker Follow Up: Follow-up with Insulin Orders - [facility] Basal | Correction | Custom Orders: Diagnosis: Diabetes Initiate hypo and hyperglycemia protocols for BG <70 and BG >375. May check BG PRN for signs/symptoms of dysglycemia. Frequency of BG checks: [AC/Meal/HS] Basal Insulin: [] Lantus 100 units / ml inject subq as follows: [] [] Other: [] Correction Insulin: - Select the type of insulin below [Choose: Novolog/Humalog]100 units /ml insulin inject subq per orders indicate below [] LOW DOSE [x] MODERATE DOSE [] MODERATE/HIGH DOSE [] HIGH DOSE GB UNITS GB UNITS GB UNITS GB UNITS 61-140 0 UNITS 61-140 0 UNITS 61-140 0 UNITS 61-140 0 UNITS 141-175 1 UNITS 141-175 1 UNITS 141-175 2 UNITS 141-175 3 UNITS 176-225 2 UNITS 176-225 3 UNITS 176-225 4 UNITS 176-225 5 UNITS 226-275 3 UNITS 226-275 5 UNITS 226-275 6 UNITS 226-275 7 UNITS 276-325 4 UNITS 276-325 7 UNITS 276-325 8 UNITS 276-325 9 UNITS 326-375 5 UNITS 326-375 9 UNITS 326-375 10 UNITS 326-375 11 UNITS >375 CONTACT MD >375 CONTACT MD >375 CONTACT MD >375 CONTACT MD Custom Dosing: [Choose: Novolog/Humalog] 100 units/ml Insulin inject subq as follows: GB Units 61-140 [] Units 141-175 [] Units 176-225 [] Units 226-275 [] Units 276-325 []Units 326-375 [] Units >375 Contact MD
--- NOTE | 2024-01-31 08:51 | DISCHARGE SUMMARY ---
Discharge Summary Admit Date: 01/26/24 Discharge Date: 01/31/24 Discharging Provider: Juno Mcbride MD Primary Care Provider: Madeline Goncalves MD Code Status: Do Not Attempt Resuscitation Condition at Discharge: Stable Discharge Disposition: SNF DC/Xfer Discharge Facility Name: [facility] - DIAGNOSES Admission Diagnoses: 1. Gastrointestinal hemorrhage 2. Anemia 3. Acute kidney injury Discharge Diagnoses with Status of Each Condition: (1) Upper GI bleed (2) Anemia requiring transfusions. 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 She was admitted to the hospital as an inpatient and was transfused 1 unit of packed red blood cells. She most likely has a upper GI hemorrhage due to an ulcer, bleeding polyps or possibly a mass. We discussed performing an endoscopy procedure versus conservative care with proton pump inhibitors and patient opted for conservative care. Proton pump inhibitor should be continued for 8 weeks then Patti should be reassessed for possible endoscopy versus continued conservative management. Her hospital course was complicated by volume overload due to transfusion of blood and she required diuretics to improve her respiratory status. She was recently diagnosed with a chest wall mass and was biopsied on January 21, 2024. Biopsy results revealed an epithelioid neoplasm. She has a past medical history significant for bilateral mastectomies for breast cancer.Patient was informed of this diagnosis during her hospitalization. She is being discharged to a long term facility for rehab with goal of improving strength and balance. During this hospitalization her dose of gabapentin was increased to 200 mg at bedtime with improvement in her foot pain. Her dose can be increased as tolerated and should be dosed according to her estimated glomerular filtration rate. During this hospitalization, her diuretic has been discontinued due to an increase in her baseline creatinine from 1.7 to 2.5. Recommend reinitiating diuretic if appropriate. Glargine was also discontinued due to low blood sugars. Patient continues on a sliding scale. Famotidine was discontinued due to the fact that she is on proton pump inhibitors. Her dose of Synthroid was decreased to [address] Goncalves's request. - HOSPITAL COURSE Hospital Course: See HPI - ALLERGIES Allergies/Adverse Reactions: Allergies Allergy/AdvReac Type Severity Reaction Status Date / Time amlodipine Allergy Unknown Verified 01/25/24 20:36 atorvastatin Allergy Unknown Verified 01/25/24 20:36 sitagliptin [From Januvia] Allergy Unknown Verified 01/25/24 20:36 albuterol AdvReac Unknown TREMMORS Verified 01/25/24 20:36 codeine AdvReac Unknown Nausea Verified 01/25/24 20:36 morphine AdvReac Unknown Nausea Verified 01/25/24 20:36 Sulfa (Sulfonamide AdvReac Unknown Nausea Verified 01/25/24 20:36 Antibiotics) ezetimibe [From Zetia] AdvReac Unknown Verified 01/25/24 20:36 rosuvastatin [From Crestor] AdvReac Unknown Verified 01/25/24 20:36 all codeine derivatives Allergy Unknown Uncoded 01/25/24 20:36 cardiac med starts with "Z" Allergy Unknown Uncoded 01/25/24 20:36 - MEDICATIONS Home Medications: Ambulatory Orders Medication Instructions Recorded Confirmed Ferrous Gluconate 2 tab PO DAILY 07/22/17 01/25/24 Levothyroxine Sodium 100 mcg PO QDAC 07/22/17 01/25/24 Nitroglycerin [Nitrostat] 0.4 mg PO Q5MIN PRN 07/22/17 01/25/24 Gabapentin 100 mg PO QPM 05/05/20 01/25/24 Sertraline [Zoloft] 25 mg PO DAILY 05/05/20 01/25/24 Cyanocobalamin (Vitamin B-12) 1,000 mcg IM .QMONTH 05/06/20 01/25/24 [Cyanocobalamin Injection] Isosorbide Mononitrate [Isosorbide 120 mg PO DAILY 05/06/20 01/25/24 Mononitrate ER] Pravastatin [Pravachol] 20 mg PO DAILY 12/13/20 01/25/24 Loperamide [Imodium] 1 tab PO Q6HR PRN 07/06/21 01/25/24 flaxseed oiL [Flaxseed Oil] 2 cap PO DAILY 07/06/21 01/25/24 Aspirin [Traverse Aspirin EC] 81 mg PO DAILY 04/06/23 01/25/24 Ondansetron Odt [Zofran Odt] 4 mg TL Q4HR PRN 04/06/23 01/25/24 Acetaminophen [Acetaminophen Extra 1,000 mg PO Q8HR PRN 01/25/24 01/25/24 Strength] Acetaminophen/Diphenhydramine 2 tab PO HS PRN 01/25/24 01/25/24 [Night Time Pain 25-500 mg Cplt] Benzonatate 200 mg PO Q8HR PRN 01/25/24 01/25/24 Cholecalciferol [Vitamin D3] 25 mcg PO DAILY 01/25/24 01/25/24 Doxazosin Mesylate [Cardura] 2 mg PO HS 01/25/24 01/25/24 Guaifenesin/Dextromethorphan 10 ml PO Q6HR PRN 01/25/24 01/25/24 [Guaifenesin-Dm 100-10 mg/5 ml] Hydralazine HCl 50 mg PO QID 01/25/24 01/25/24 Lactobacillus Combination No.4 1 each PO DAILY 01/25/24 01/25/24 [Probiotic] Losartan Potassium 25 mg PO BID 01/25/24 01/25/24 Metoprolol Succinate [Toprol Xl] 50 mg PO BID 01/25/24 01/25/24 Triamcinolone Acetonide 1 applic TP BID PRN 01/25/24 01/25/24 Gabapentin [Neurontin] 100 mg PO BID #60 cap 01/31/24 Insulin Lispro [Humalog Kwikpen 1 - 9 unit SUBQ 01/31/24 U-100] 0800,1200,1700,2100 #3 ml Levothyroxine [Synthroid] 88 mcg PO QDAC #30 tab 01/31/24 Pantoprazole [Protonix] 40 mg PO BID #60 tab 01/31/24 - PHYSICAL EXAM AT DISCHARGE General Appearance: positive: Alert Eyes Bilateral: positive: Conjunctivae nml, No scleral icterus Neck: positive: Thyroid nml, No JVD, Trachea midline Respiratory: positive: Other (Good air exchange in all lung stewart no wheezing no crackles.) Cardiovascular: positive: Other (Positive S1-S2 no extra heart sounds.) Abdomen: positive: Other (Soft nontender nondistended positive bowel sounds) Skin: positive: No rash Extremities: positive: No pedal edema, Other - LABS Result Diagrams: 01/31/24 05:36 01/31/24 05:36 - QUALITY (Female Hip Fx Only) Was patient sent home on osteoporosis medication?: No - FOLLOW UP Follow Up: Please follow-up with Dr. Madeline Goncalves. - TIME SPENT Time Spent in Discharge (Minutes): 35 (35 minutes spent coordinating discharge.)
[2024-01-31 11:35] VITALS: BP 159/51
== END 2024-01-31 12:25 | DRG 378 ==
LOC: ED 20:32 → MS2 01-26 00:10 → OBSVTOIN 01-26 10:12
PROVIDERS: ADMIT Student in an Organized Health Care Education/Training Program; ATTEND Internal Medicine
DX: K28.4 Chronic or unspecified gastrojejunal ulcer with hemorrhage (principal); K92.0 Hematemesis; K92.1 Melena; R53.1 Weakness; N17.9 Acute kidney failure, unspecified; D50.0 Iron deficiency anemia secondary to blood loss (chronic); E11.42 Type 2 diabetes mellitus with diabetic polyneuropathy; I12.9 Hypertensive chronic kidney disease with stage 1 through stage 4 chronic kidney disease, or unspecified chronic kidney disease; N18.4 Chronic kidney disease, stage 4 (severe); N18.30 Chronic kidney disease, stage 3 unspecified; E87.70 Fluid overload, unspecified; I10 Essential (primary) hypertension; E78.00 Pure hypercholesterolemia, unspecified; I25.10 Atherosclerotic heart disease of native coronary artery without angina pectoris; E03.9 Hypothyroidism, unspecified; K21.9 Gastro-esophageal reflux disease without esophagitis; F32.A Depression, unspecified; F41.9 Anxiety disorder, unspecified; M19.90 Unspecified osteoarthritis, unspecified site; H91.90 Unspecified hearing loss, unspecified ear; R07.9 Chest pain, unspecified; R06.01 Orthopnea; K57.30 Diverticulosis of large intestine without perforation or abscess without bleeding; R11.14 Bilious vomiting; K31.7 Polyp of stomach and duodenum; C76.1 Malignant neoplasm of thorax; E11.22 Type 2 diabetes mellitus with diabetic chronic kidney disease; R63.0 Anorexia; R06.00 Dyspnea, unspecified; Z66 Do not resuscitate; Z68.25 Body mass index [BMI] 25.0-25.9, adult; Z79.4 Long term (current) use of insulin; Z79.82 Long term (current) use of aspirin; Z79.890 Hormone replacement therapy; Z79.899 Other long term (current) drug therapy; Z85.3 Personal history of malignant neoplasm of breast; Z90.13 Acquired absence of bilateral breasts and nipples; Z90.49 Acquired absence of other specified parts of digestive tract; Z90.710 Acquired absence of both cervix and uterus; Z95.1 Presence of aortocoronary bypass graft; Z95.5 Presence of coronary angioplasty implant and graft; Z96.649 Presence of unspecified artificial hip joint
CPT/HCPCS: 36415; 36430; 71045; 74176; 76770; 80048; 80053; 80061; 82274; 83036; 83540; 83735; 84100; 84443; 84466; 85014; 85018; 85025; 85027; 85610; 86850; 86900; 86901; 86920; 97162; 97166; 97530; 99284; 99285; A9270; G0378; J2765; J7120; P9016; 83721